=== PATIENT | female | born 1955 | race African-American/Black ===

== ENCOUNTER 2019-12-09 13:38 | Outpatient (CLI) | payer MEDICARE, SELFPAY ==
--- NOTE | 2019-12-15 12:08 | WPDHOLTEREM ---
Holter/Event Monitor Holter/Event Monitor Date of procedure: 12/09/19 Procedure Type: 48 hour holter monitor Indications: Palpitations Conclusion: 1. 48 hour holter monitor on 12/09/19. 2. Predominant rhythm is sinus rhythm. HR range 63-93 bpm; average HR 84 bpm. 3. There are 57 premature supraventricular complexes. There are 3 episodes of atrial tachycardia, fastest at 152 bpm and longest lasting 29 beats. 4. There are 2 premature ventricular complexes. No ventricular tachycardia. 5. No sinoatrial or atrioventricular blocks. No significant pauses greater than 2 seconds. 6. No symptoms available for correlation.
== END 2019-12-09 13:39 | disposition home or self-care (01) ==
PROVIDERS: PCP Family Medicine; Visit Provider Internal Medicine Cardiovascular Disease
DX: R00.2 Palpitations (principal)
CPT/HCPCS: 93225; 93226

== ENCOUNTER 2020-03-17 09:46 | Outpatient (CLI) | payer MEDICARE, SELFPAY ==
--- NOTE | ~2020-03-17 | MM_ITS ---
EXAMINATION: MM screening crispin BI w allan HISTORY: Screening mammogram TECHNIQUE: Craniocaudal and mediolateral oblique 3-D tomosynthesis images were obtained and synthetic 2-D images were generated. CAD analysis was submitted and interpreted. COMPARISON: 03/04/2019, 02/28/2018 bilateral digital screening mammogram examinations BREAST PARENCHYMAL COMPOSITION: There are scattered areas of fibroglandular density...... FINDINGS: There is no evidence of suspicious mass, calcification, or architectural distortion to sugg est malignancy in either breast. There has been no suspicious interval change. IMPRESSION: 1. No mammographic evidence of malignancy. 2. Recommend routine screening mammography in one year. BI-RADS Category 1: Negative Reviewed, dictated and finalized at location A.
== END 2020-03-17 09:47 | disposition home or self-care (01) ==
LOC: ANHIMG 09:48
PROVIDERS: PCP Family Medicine; Visit Provider Family Medicine
DX: Z12.31 Encounter for screening mammogram for malignant neoplasm of breast (principal)
CPT/HCPCS: 77063; 77067

== ENCOUNTER 2020-05-26 09:42 | Outpatient (CLI) | payer MEDICARE, SELFPAY ==
--- NOTE | ~2020-05-26 | US_ITS ---
EXAMINATION: US carotid duplex BI DATE: 05/26/2020 10:23 INDICATION: Memory impairment. Cerebral atherosclerosis. TECHNIQUE: Grayscale, color Doppler, and pulsed Doppler images of the cervical carotid arteries were obtained. The degree of vessel stenosis is placed in one of the following categories: normal, <50%, 5 0-69%, >=70% but less than near-occlusion, near-occlusion, or total occlusion. Note that percent sten osis relative to normal distal artery lumen diameter is indirectly measured from velocity measurement s as described by Raudel, et al. Radiology 2003; 229:340-346. COMPARISON: None. FINDINGS: RIGHT: The right common carotid artery (CCA) peak systolic velocity (PSV) is 69 cm/s. The right internal car otid artery (ICA) PSV is 41 cm/s. The right ICA end-diastolic velocity (EDV) is 14 cm/s. The right IC A/CCA PSV ratio is 0.6. Grayscale and color Doppler images of the straight no evident stenosis or smita que in the ICA. The external carotid artery (ECA) PSV is 38 cm/s. There is antegrade flow in the righ t vertebral artery. LEFT: The left CCA PSV is 62 cm/s. The left ICA PSV is 53 cm/s. The left ICA EDV is 25 cm/s. The left ICA/C CA PSV ratio is 0.9. Grayscale and color Doppler images and straight no evident stenosis or plaque in the ICA. The ECA PSV is 28 cm/s. There is antegrade flow in the left vertebral artery. IMPRESSION: 1. No evident plaque or stenosis in the right internal carotid artery. 2. No evident plaque or stenosis in the left internal carotid artery. Reviewed, dictated and finalized at location A.
== END 2020-05-26 09:43 | disposition home or self-care (01) ==
LOC: ANHIMG 09:47
PROVIDERS: PCP Family Medicine; Visit Provider Nurse Practitioner Family
DX: R09.89 Other specified symptoms and signs involving the circulatory and respiratory systems (principal)
CPT/HCPCS: 93880

== ENCOUNTER 2020-10-21 12:41 | Outpatient (CLI) | payer MEDICARE, SELFPAY ==
--- NOTE | ~2020-10-21 | DEXA_ITS ---
Bone Density Report Name: Leilani Low V Age: 65 Sex: Female Ethnicity: White Date of : 1955 Indication: osteopenia; height loss; prior fracture; hysterectomy; Referring Provider: Juanis Robin Study: Bone densitometry was performed. Exam Date: October 21, 2020 Accession number: [id number] Bone Density: Region BMD T-score Z-score Classification AP Spine (L3, L4) 1.131 0.3 2.3 Normal Femoral Neck (Left) 0.649 -1.8 -0.2 Osteopenia Total Hip (Left) 0.729 -1.7 -0.4 Osteopenia World Health Organization criteria for BMD impression classify patients as: Normal (T-score at or above -1.0), Osteopenia (T-score between -1.0 and -2.5), or Osteoporosis (T-score at or below -2.5). 10-year Fracture Risk: FRAX not reported because: Prior hip or vertebral fracture Previous Exams: Region Exam Age BMD T-score BMD Change BMD Change Date g/cm2 vs Baseline vs Previous AP Spine(L3, L4) 10/21/2020 65 1.131 0.3 -0.014(-1.2%) -0.014(-1.2%) 10/18/2017 62 1.145 0.4 Total Hip(Left) 10/21/2020 65 0.729 -1.7 -0.047(-6.1%)* -0.047(-6.1%)* 10/18/2017 62 0.776 -1.4 *Denotes significance at 95% confidence level, LSC for AP Spine = 0.022 g/cm2, LSC for Total Hip = 0.027 g/cm2 Clinical Information Provided by Patient: Have had a previous hip or vertebral fracture Has had a low trauma fracture Has used the following medications: Vitamin D, Calcium Has the following medical conditions: Hysterectomy Patient maximum height was 66 Menopause Age: 38 Onset of menses at age 10 Number of children 2 Impression: The patient has low bone mass, based on the Left Femoral Neck T-score. The patient has risk factors, including: previous fracture. The BMD for the Total Hip(Left) decreased, changing by -6.1% since the last DXA exam. Discussion: INCREASED RISK OF FRACTURE DUE TO HISTORY OF FRACTURE. The patient's previous fracture puts the patient at high risk of a future fracture. In untreated patients, the risk of osteoporotic fracture increases approximately two-fold for each 1.0 SD decrease in T-score. Low bone density is not the only risk factor for fracture; also consider factors such as patient's age, frailty or poor health, risk of falling, risk of injury, previous osteoporotic fracture, family history of osteoporosis, cigarette smoking, low body weight, etc. Not everyone with a low trauma fracture has osteoporosis; osteomalacia and other metabolic bone disorders should also be considered. Patients who have osteoporosis should be evaluated for specific
== END 2020-10-21 12:42 | disposition home or self-care (01) ==
LOC: ANHIMG 12:44
PROVIDERS: PCP Family Medicine; Visit Provider Nurse Practitioner
DX: Z78.0 Asymptomatic menopausal state (principal); M85.852 Other specified disorders of bone density and structure, left thigh
CPT/HCPCS: 77080

== ENCOUNTER 2020-12-13 09:16 | Outpatient (CLI) | payer MEDICARE, SELFPAY | END 2020-12-13 09:17 | disposition home or self-care (01) | LOC: ANHCOVIDVC 09:16 | PROVIDERS: PCP Family Medicine; Visit Provider Family Medicine | DX: Z23 Encounter for immunization (principal) | CPT/HCPCS: 0001A; 91300 ==

== ENCOUNTER 2020-12-21 16:46 | Outpatient (CLI) | payer MEDICARE, SELFPAY ==
--- NOTE | ~2020-12-21 | US_ITS ---
EXAMINATION: US venous doppler [facility] DATE: 12/21/2020 17:21 INDICATION: Left arm swelling TECHNIQUE: Hinton scale images with and without compression and Doppler images of the left upper extrem ity veins were obtained. COMPARISON: None. FINDINGS: The left internal jugular vein, subclavian vein, axillary vein, brachial veins, basilic vein, cephali c vein, radial vein, and ulnar vein are patent.] IMPRESSION: 1. Patent left upper extremity veins. No evidence of deep venous thrombosis. Reviewed, dictated and finalized at location A. CHER
== END 2020-12-21 16:47 | disposition home or self-care (01) ==
PROVIDERS: PCP Nurse Practitioner; Visit Provider Nurse Practitioner
DX: M79.89 Other specified soft tissue disorders (principal)
CPT/HCPCS: 93971

== ENCOUNTER 2021-01-03 09:11 | Outpatient (CLI) | payer MEDICARE, SELFPAY | END 2021-01-03 09:12 | disposition home or self-care (01) | LOC: ANHCOVIDVC 09:11 | PROVIDERS: PCP Family Medicine | DX: Z23 Encounter for immunization (principal) | CPT/HCPCS: 0002A; 91300 ==

== ENCOUNTER 2021-03-20 08:20 | Outpatient (CLI) | payer MEDICARE, SELFPAY ==
--- NOTE | ~2021-03-20 | MM_ITS ---
EXAMINATION: MM screening crispin BI w allan HISTORY: Screening mammogram TECHNIQUE: Craniocaudal and mediolateral oblique 3-D tomosynthesis images were obtained and synthetic 2-D images were generated. CAD analysis was submitted and interpreted. COMPARISON: 03/17/2020, 03/04/2019, 02/28/2018 bilateral digital screening mammogram examinations BREAST PARENCHYMAL COMPOSITION: There are scattered areas of fibroglandular density. FINDINGS: There is no evidence of suspicious mass, calcification, or architectural distortion to sugg est malignancy in either breast. There has been no suspicious interval change. IMPRESSION: 1. No mammographic evidence of malignancy. 2. Recommend routine screening mammography in one year. BI-RADS Category 1: Negative Reviewed, dictated and finalized at location A.
== END 2021-03-20 08:21 | disposition home or self-care (01) ==
LOC: ANHIMG 08:27
PROVIDERS: PCP Family Medicine; Visit Provider Family Medicine
DX: Z12.31 Encounter for screening mammogram for malignant neoplasm of breast (principal)
CPT/HCPCS: 77063; 77067

== ENCOUNTER 2022-01-10 14:12 | Outpatient (CLI) | payer MEDICARE, SELFPAY ==
--- NOTE | ~2022-01-10 | XR_ITS ---
XR knee RT min 4V DATE: 01/10/2022 14:49 INDICATION: Pain and swelling of right knee. Knee replacement 5 years ago. TECHNIQUE: [place] and standing AP, PA and lateral views COMPARISON: 07/27/2017 right knee FINDINGS: There is organized callus formation consistent with healed fracture of the distal femoral s haft. An intramedullary alyce extends to the fused distal femoral growth plate. Therefore transverse la g screws in the distal femoral metaphyseal area. Status post right knee arthroplasty without patellar resurfacing. Osteopenia. No recent fracture, dislocation, periosteal reaction or bone destruction. IMPRESSION: Status post ORIF distal femoral shaft fracture by intramedullary alyce and transverse dista l femoral screws Status post right knee arthroplasty without patellar resurfacing Osteopenia No recent fracture or dislocation Reviewed, dictated and finalized at location A. IMPRESSION: Status post ORIF distal femoral shaft fracture by intramedullary ro d and transverse distal femoral screws Status post right knee arthroplasty without patellar resurfacing Osteopenia No recent fracture or dislocation
== END 2022-01-10 14:13 | disposition home or self-care (01) ==
LOC: ANHIMG 14:18
PROVIDERS: PCP Family Medicine; Visit Provider Nurse Practitioner
DX: M25.561 Pain in right knee (principal); M85.861 Other specified disorders of bone density and structure, right lower leg
CPT/HCPCS: 73564

== ENCOUNTER 2022-01-30 13:22 | Outpatient (CLI) | payer MEDICARE, SELFPAY ==
--- NOTE | ~2022-01-30 | US_ITS ---
EXAMINATION: US thyroid DATE: 01/30/2022 14:08 INDICATION: Nontoxic single thyroid nodule. TECHNIQUE: Multiple ultrasound images of the thyroid were obtained. COMPARISON: Thyroid ultrasound 09/08/2018 FINDINGS: The right thyroid lobe measures 4.7 x 2.4 x 1.5 cm. The left thyroid lobe measures 4.9 x 1.9 x 1.8 c m. In the right thyroid lobe, there is a 4 mm nodule. IMPRESSION: 1. Small thyroid nodule, likely not clinically significant. No follow-up is needed. Reviewed, dictated and finalized at location B. IMPRESSION: 1. Small thyroid nodule, likely not clinically significant. No follow-up is nee ded.
== END 2022-01-30 13:23 | disposition home or self-care (01) ==
PROVIDERS: PCP Family Medicine; Visit Provider Nurse Practitioner
DX: E04.1 Nontoxic single thyroid nodule (principal)
CPT/HCPCS: 76536

== ENCOUNTER 2022-12-31 01:50 | Day surgery (SDC) | payer MEDICARE, SELFPAY ==
[2022-12-19 12:43] VITALS: BMI 26.3
[2022-12-31 09:50] VITALS: BP 133/93; PULSE 82; RESP 20; TEMP 35.7; O2SAT 99
[2022-12-31] MEDS: LACTATED RINGERS 1,000 ML 150 ML IV CONT (10:02)
--- NOTE | 2022-12-31 10:08 | WPDANESEPPF ---
Anes - Initial Pre Proc Eval Procedure: Operation Date: 12/31/22 11:00 Proposed Procedures p Screening Colonoscopy - Sihraz Farrar MD Date/Time: 12/31/22 10:08 Surgeon: Shiraz Farrar MD Pre Op Diagnosis: neoplasm screening Patient Data Age: 67 Gender: F Height: 1.68 m Weight: 71.1 kg Last Vital Signs Temp 96.2 F L 12/31/22 09:50 Pulse 82 12/31/22 09:50 Resp 20 12/31/22 09:50 BP 133/93 H 12/31/22 09:50 Pulse Ox 99 12/31/22 09:50 O2 Del Method Room Air 12/31/22 09:50 Allergies Allergy/AdvReac Type Severity Reaction Status Date / Time amitriptyline Allergy Mild Hallucinati Verified 12/31/22 09:49 ons Penicillins Allergy Mild Itching Verified 12/31/22 09:49 Home Medications Medication Instructions Recorded Confirmed Type cholecalciferol (vitamin D3) 50 50 mcg PO DAILY 01/15/20 12/21/22 History mcg (2,000 unit) capsule omega 2-hho-arr-fish oil 1,000 mg 1 cap PO DAILY 01/15/20 12/21/22 History (120 mg-180 mg) capsule (Fish Oil) ferrous fumarate 325 mg (106 mg 325 mg PO EVERY OTHER DAY 03/22/21 12/21/22 History iron) tablet acetaminophen 500 mg tablet 500 mg PO Q6H PRN Pain 02/07/22 12/21/22 History (Tylenol Extra Strength) hydroxyurea 500 mg capsule 500 mg PO BID 02/07/22 12/21/22 History tramadol 50 mg tablet 50 mg PO Q6H PRN Pain 08/01/22 12/21/22 History albuterol sulfate 90 mcg/actuation 1 inh inhalation Q4H PRN shortness 09/21/22 12/21/22 Rx aerosol inhaler of breath or wheezing #6.7 grams fluticasone propionate 50 1 spray intranasal DAILY 09/21/22 12/21/22 History mcg/actuation nasal spray,suspension fluoxetine 20 mg capsule 20 mg PO DAILY #90 caps 12/11/22 12/21/22 Rx zolpidem 10 mg tablet 10 mg PO QHS #30 tabs 12/17/22 12/21/22 Rx gabapentin 600 mg tablet 600 mg PO TID 12/19/22 12/21/22 History metoprolol succinate 25 mg 25 mg PO DAILY 12/19/22 12/31/22 History tablet,extended release 24 hr pravastatin 20 mg tablet 20 mg PO DAILY 12/19/22 12/21/22 History sulfamethoxazole 800 1 tablet PO Q12H #14 tabs 12/24/22 Rx mg-trimethoprim 160 mg tablet (Bactrim DS) Patient hx anesthesia problems: none Family hx anesthesia problems: none Results Review: All pre-operative results and documents have been reviewed as part of the pre-operative evaluation. [facility] Past Medical History Medical History Anxiety disorder, unspecified Carotid bruit Chronic obstructive pulmonary disease Cyst of right ovary (~02/2020) Gastric ulcer GI bleed (~02/2020) Hypertension Neuropathy CHATA (obstructive sleep apnea) PAT (paroxysmal atrial tachycardia) Primary osteoarthritis of right knee Recurrent major depression in remission Thrombocytosis (~02/2020) Tobacco abuse Vegetarian diet Surgical History Surgical History H/O tubal ligation History of right knee surgery retrograde femoral nail for supracondylar femur fracture History of total right knee replacement Family History Family History Father Carcinoma of colon Diabetes mellitus Hypertension Malignant neoplasm of prostate Family history of alcohol abuse Depression Heart disease Mother Hypertension Family history of chronic obstructive pulmonary disease Family history of congestive heart failure Carcinoma of colon Depression Other Family history of arthritis Family history of malignant neoplasm Social History Social History Smoking status: Former smoker Tobacco type: cigarettes Smoking end date: 10/14/16 Alcohol intake: current Alcohol use details: 1 beer occasionally Substance use type: does not use Lack of Transportation: No Lack of Food: Sometimes True Current Housing: I Have Housing Concerned About Future Housing: No Difficulty Paying for Meds: No Currently
--- NOTE | 2022-12-31 10:21 | PM.HPGS ---
History of Present Illness History of Present Illness Consent: Risks, benefits, and alternatives have been discussed and questions answered. Patient agrees to proceed with procedure. Chief complaint: neoplasm screening Narrative: Leilani Low is a 67 year old female with last colonoscopy 2016, father had CRC Review of Systems Constitutional: Constitutional: Denies headache(s) and Denies weakness Eyes: Eyes: Denies blurry vision ENT: Reports Normal hearing present, Denies headache(s) and Denies neck pain Cardiovascular: Cardiovascular: Denies chest pain and Denies dyspnea Respiratory: Respiratory: Denies dyspnea Gastrointestinal: Gastrointestinal: Reports no additional gastrointestinal complaints Genitourinary: Genitourinary: Denies dysuria Musculoskeletal: Musculoskeletal: Denies neck pain Integumentary/Breasts: Skin/Breast: Denies dry skin Neurologic: Reports Normal hearing present, Denies headache(s) and Denies weakness Psychiatric: Psychiatric: Denies anxiety Endocrine: Endocrine: Denies change in body appearance Hematologic/Lymphatic: Hematologic/Lymphatic: Denies easy bleeding Allergic/Immunologic: Allergic/Immunologic: Denies urticaria PMFSH Past Medical History Medical History Anxiety disorder, unspecified Carotid bruit Chronic obstructive pulmonary disease Cyst of right ovary (~02/2020) Family history of colon cancer in father Gastric ulcer GI bleed (~02/2020) Hypertension Neuropathy CHATA (obstructive sleep apnea) PAT (paroxysmal atrial tachycardia) Primary osteoarthritis of right knee Recurrent major depression in remission Thrombocytosis (~02/2020) Tobacco abuse Vegetarian diet Surgical History Surgical History H/O tubal ligation History of right knee surgery retrograde femoral nail for supracondylar femur fracture History of total right knee replacement Family History Family History Father Carcinoma of colon Diabetes mellitus Hypertension Malignant neoplasm of prostate Family history of alcohol abuse Depression Heart disease Mother Hypertension Family history of chronic obstructive pulmonary disease Family history of congestive heart failure Carcinoma of colon Depression Other Family history of arthritis Family history of malignant neoplasm Social History Social History Smoking status: Former smoker Tobacco type: cigarettes Smoking end date: 10/14/16 Alcohol intake: current Alcohol use details: 1 beer occasionally Substance use type: does not use Lack of Transportation: No Lack of Food: Sometimes True Current Housing: I Have Housing Concerned About Future Housing: No Difficulty Paying for Meds: No Currently Unemployed: No Education: High School Diploma/GED Difficulty w/ Childcare or Family Care: No Living arrangements: alone Occupation/Education: other Gender identity (if verbalized by the patient): Female Spiritual care concerns: No Meds Home Medications and Allergies Home Medications Medication Instructions Recorded Confirmed Type cholecalciferol (vitamin D3) 50 50 mcg PO DAILY 01/15/20 12/21/22 History mcg (2,000 unit) capsule omega 1-uqq-pek-fish oil 1,000 mg 1 cap PO DAILY 01/15/20 12/21/22 History (120 mg-180 mg) capsule (Fish Oil) ferrous fumarate 325 mg (106 mg 325 mg PO EVERY OTHER DAY 03/22/21 12/21/22 History iron) tablet acetaminophen 500 mg tablet 500 mg PO Q6H PRN Pain 02/07/22 12/21/22 History (Tylenol Extra Strength) hydroxyurea 500 mg capsule 500 mg PO BID 02/07/22 12/21/22 History tramadol 50 mg tablet 50 mg PO Q6H PRN Pain 08/01/22 12/21/22 History albuterol sulfate 90 mcg/actuation 1 inh inhalation Q4H PRN shortness 09/21/22 12/21/22 Rx aerosol inhaler of breath or wheezing #6.7 grams fluticasone propion
[2022-12-31 10:41] VITALS: BP 100/72; PULSE 70; RESP 18; O2SAT 99
[2022-12-31 10:51] VITALS: BP 123/75; PULSE 74; RESP 20; O2SAT 100
[2022-12-31 11:01] VITALS: BP 134/85; PULSE 70; RESP 20; O2SAT 99
== END 2022-12-31 11:19 | disposition home or self-care (01) ==
PROVIDERS: PCP Family Medicine; Visit Provider Internal Medicine Gastroenterology
PROC: 0DJD8ZZ Inspection of Lower Intestinal Tract, Via Natural or Artificial Opening Endoscopic (ICD-10-PCS; CPT 45378; principal; 2022-12-31 11:00)
DX: Z12.11 Encounter for screening for malignant neoplasm of colon (principal); D12.0 Benign neoplasm of cecum; K64.8 Other hemorrhoids; Z80.0 Family history of malignant neoplasm of digestive organs; I10 Essential (primary) hypertension; G62.9 Polyneuropathy, unspecified; F33.40 Major depressive disorder, recurrent, in remission, unspecified; J44.9 Chronic obstructive pulmonary disease, unspecified; F41.9 Anxiety disorder, unspecified; I47.1 Supraventricular tachycardia; G47.33 Obstructive sleep apnea (adult) (pediatric); Z87.891 Personal history of nicotine dependence; Z79.51 Long term (current) use of inhaled steroids
CPT/HCPCS: 45380; 88305; J2704; J7120

== ENCOUNTER 2023-02-12 08:39 | Outpatient (CLI) | payer MEDICARE, SELFPAY ==
--- NOTE | ~2023-02-12 | CT_ITS ---
CT Scan of the Chest without Contrast: Clinical Indication: Lung cancer screening, smoking history Technique: Contiguous sections were acquired throughout the chest without intravenous contrast. Dose reduction technique was used on this scan by utilizing automated exposure control and iterative recon struction technique. The dose-length product (DLP) was 85.50 mGy-cm. COMPARISON: 10/30/2017 Findings: There is no evidence of any significant mediastinal, hilar or axillary lymphadenopathy. The mediastin al soft tissues appear normal. There is no evidence of pleural or pericardial effusion. Stable 2 mm left lower lobe pulmonary nodule. No other pulmonary nodule identified. Images through the upper abdomen reveal no abnormalities. Impression: Lung RADS 2: Benign appearance. 12 month follow-up screening CT advised. Reviewed, dictated and finalized at location . Impression: Lung RADS 2: Benign appearance. 12 month follow-up screening CT advised.
== END 2023-02-12 08:40 | disposition home or self-care (01) ==
PROVIDERS: PCP Family Medicine; Visit Provider Nurse Practitioner
DX: Z12.2 Encounter for screening for malignant neoplasm of respiratory organs (principal); Z87.891 Personal history of nicotine dependence
CPT/HCPCS: 71271

== ENCOUNTER 2023-04-12 09:25 | Outpatient (CLI) | payer MEDICARE, SELFPAY ==
--- NOTE | ~2023-04-12 | DEXA_ITS ---
Bone Density Report Name: HODAN FRY V Age: 67 Sex: Female Ethnicity: White Date of : 1955 Indication: osteopenia; height loss; postmenopausal Referring Provider: MATHEUS SHIELDS Study: Bone densitometry was performed. Exam Date: April 12, 2023 Accession number: [id number] Bone Density: Region BMD T-score Z-score Classification AP Spine(L1-L4) 1.110 0.6 2.7 Normal Femoral Neck (Left) 0.693 -1.4 0.4 Osteopenia Total Hip (Left) 0.722 -1.8 -0.3 Osteopenia Femoral Neck (Right) 0.685 -1.5 0.3 Osteopenia Total Hip (Right) 1.208 2.2 3.7 Normal Total Hip Mean 0.965 0.2 1.7 Normal World Health Organization criteria for BMD impression classify patients as: Normal (T-score at or above -1.0), Osteopenia (T-score between -1.0 and -2.5), or Osteoporosis (T-score at or below -2.5). 10-year Fracture Risk(1): Major Osteoporotic Fracture 9.6% Hip Fracture 1.3% Reported Risk Factors: [place] (), Neck BMD=0.693, BMI=27.3 (1) FRAX(R) Version 3.08. Fracture probability calculated for an untreated patient. Fracture probability may be lower if the patient has received treatment. Previous Exams: Region Exam Age BMD T-score BMD Change BMD Change Date g/cm2 vs Baseline vs Previous AP Spine (L1-L4) 04/12/2023 67 1.110 0.6 0.020 (1.8%) 0.020 (1.8%) 10/18/2017 62 1.090 0.4 Total Hip(Left) 04/12/2023 67 0.722 -1.8 -0.055 (-7.1%) -0.007 (-1.0%) 10/21/2020 65 0.729 -1.7 -0.047 (-6.1%) -0.047 (-6.1%) 10/18/2017 62 0.776 -1.4 *Denotes significance at 95% confidence level, LSC for AP Spine = 0.022 g/cm2, LSC for Total Hip = 0.027 g/cm2 Clinical Information Provided by Patient: Has used the following medications: Vitamin D, Calcium Patient maximum height was 66 Menopause Age: 38 Onset of menses at age 11 Number of children 2 Impression: The patient has low bone mass, based on the Left Total Hip T-score. The patient has an estimated ten-year risk of hip fracture of 1.3% and an estimated ten-year risk of major fracture of 9.6%, based on the WHO FRAX algorithm. No significant bone loss was observed. Discussion: BONE DENSITY IS LOW AT ONE OR MORE SKELETAL SITES. This patient's lowest T-score is low at one or more skeletal sites. It meets the World Health Organization's (WHO) criteria for ?low bone mass? (T-score between -1.0 and -2.5). The patient's 10-year risk of fracture as calculated by FRAX is less than the threshold where pharmacologica
--- NOTE | ~2023-04-12 | MM_ITS ---
EXAMINATION: MM screening crispin BI w allan HISTORY: Screening mammogram TECHNIQUE: Craniocaudal and mediolateral oblique 3-D tomosynthesis images were obtained and synthetic 2-D images were generated. CAD analysis was submitted and interpreted. COMPARISON: 03/20/2021, 03/2020, 03/04/2019 bilateral screening mammogram examinations BREAST PARENCHYMAL COMPOSITION: There are scattered areas of fibroglandular density. FINDINGS: There is no evidence of suspicious mass, calcification, or architectural distortion to sugg est malignancy in either breast. There has been no suspicious interval change. IMPRESSION: 1. No mammographic evidence of malignancy. 2. Recommend routine screening mammography in one year. BI-RADS Category 1: Negative Reviewed, dictated and finalized at location A.
== END 2023-04-12 09:26 | disposition home or self-care (01) ==
LOC: ANHIMG 09:27
PROVIDERS: PCP Family Medicine; Visit Provider Nurse Practitioner
DX: Z12.31 Encounter for screening mammogram for malignant neoplasm of breast (principal); M85.9 Disorder of bone density and structure, unspecified; Z78.0 Asymptomatic menopausal state
CPT/HCPCS: 77063; 77067; 77080

== ENCOUNTER 2023-05-16 08:29 | Outpatient (CLI) | payer MEDICARE, SELFPAY ==
--- NOTE | 2023-05-23 15:14 | WPDSLEEPSTUD ---
Sleep Study Date of Study: 05/16/23 Ordering Provider: Guera Negrete APRN Interpreting Physician: Silvia Obregon MD Sleep Study Type: Polysomnogram Height: 1.68 m Weight: 72.575 kg Body Mass Index: 25.8 Neck Circumference (inches): 14.5 [place]: 8 Reason for Sleep Study recent episodes of sleep walking and calling people in her sleep obstructive sleep apnea is listed as a prior diagnosis * 02/11/2018, HST; AHI 15.9, minimum saturation 40%, 221 minutes spent below 88% * 04/04/2018 CPAP titration; optimal pressure CPAP 7 cm with borderline hypoxemia, average sat was 90% Sleep History Leilani Low is a 67-year-old female with complaints of sleep walking. She describes episodes of walking to her neighbor's house and knocking on the door as well as calling people on the phone, completely unaware while asleep. only when people call her and ask if she is okay does she realized that she has made these phone calls at night. She sees care to go to sleep due to the events. She is not sure how it started or why. Her med list does not show Ambien which has been known to cause these types of behavior. She has anxiety, depression, COPD, CAD as medical diagnoses. she has obstructive sleep apnea listed as prior diagnosis, this was from 2018. Does not appear that she has been treated for it. She does not awaken from sleep feeling short of breath or awaken at night with heartburn, belching or coughing. She does not snore. Other people do not tell her that she snores. She occasionally has difficulty sleeping with a cold. She does not wake up gasping for breath at night. She does not have breathing problems at night observed by others. She always sweats excessively at night. She never notices her heart pounding or beating irregularly at night. She occasionally falls asleep during the day but never falls asleep involuntarily or while driving. She does not have loss of muscle tone with strong emotion. She does not have daytime difficulties due to excessive sleepiness. She never feels paralyzed on waking or falling asleep. She occasionally has vivid dreamlike scenes upon waking or falling asleep. She always feels afraid to go to sleep. She frequently has nightmares. She does not remember her dreams. She occasionally has racing thoughts. She constantly feels sad, depressed and anxious. She always has muscular tension and notices parts of her body jerking. She never kicks at night. She always has crawling and aching feelings in her legs and leg pain at night. She does not have morning jaw pain. She does not grind her teeth during sleep. She occasionally is bothered by pain during the day, occasionally awakened by pain at night. She frequently wakes up feeling stiff in the morning. She occasionally wakes up with sore achy muscles and pain in the neck and spine. She has problems with insomnia, concentration difficulties and memory problems. She has fatigue. She has lost weight over the last year. Normal bedtime is 10:00 p.m. falling asleep within 1-2 hours. She wakes between 2 and 3 times at night to take a drink of water. She is able to return to sleep within 1/2 hour. Her normal wake time is 6:00 a.m.. She keeps the same schedule on weekends. She estimates getting 6-7 hours of sleep at night. She takes naps in the afternoon or evening. She does not feel refreshed after a 10 or 15 minute nap. She is drowsy for an hour after waking. She feels better in the morning compared to other times of day. Habits: Quit tobacco 2 years ago. Caffeine 1 cup of coffee a day. No alcohol or recreational substances. [facility] Past Medical History Medical History Anxiety Anxiety disorder, unspecified Carotid bruit Chronic obstructive pulmonary disease Cyst of right ovary (~02/2020) Family history of colon cancer in father Gastric ulcer GI bleed (~02/2020) Hypertension Neuropathy CHATA (obstructive sleep apnea) PAT (paroxysmal atrial tach
[2023-05-27 10:59] VITALS: BMI 25.8
== END 2023-05-17 06:59 | disposition home or self-care (01) ==
LOC: ANHCSM 08:40
PROVIDERS: PCP Family Medicine; Visit Provider Nurse Practitioner Family
DX: G47.34 Idiopathic sleep related nonobstructive alveolar hypoventilation (principal); G25.81 Restless legs syndrome; G47.8 Other sleep disorders; F41.9 Anxiety disorder, unspecified; G62.9 Polyneuropathy, unspecified; F51.3 Sleepwalking [somnambulism]
CPT/HCPCS: 95810; 99199

== ENCOUNTER 2023-08-05 08:21 | Outpatient (CLI) | payer MEDICARE, SELFPAY ==
[2023-08-05 19:05] LABS: Basophils Absolute Auto 0.2 K/mm3 (0.0-0.1); Basophils Percent Auto 2.5 % (0.2-1.2); Eosinophils Absolute Auto 0.2 K/mm3 (0-0.3); Eosinophils Percent Auto 2.8 % (0-4.4); Hematocrit 37.2 % (37.0-47.0); Hemoglobin 11.8 g/dL (12.0-15.0); Immature Granulocyte Absolute 0.22 K/mm3 (0.00-0.031); Immature Granulocyte Percent A 3.4 % (0-0.5); Lymphocytes Absolute Auto 2.06 K/mm3 (0.9-3.2); Lymphocytes Percent Auto 32.1 % (18.3-44.2); Mean Corpuscular HGB Conc 31.7 g/dl (32-36); Mean Corpuscular Hemoglobin 37.2 pg (26-34); Mean Corpuscular Volume 117.4 fl (80-100); Monocytes Absolute Auto 0.7 K/mm3 (0.1-0.6); Monocytes Percent Auto 10.9 % (2.6-8.5); Neutrophils Absolute Auto 3.1 K/mm3 (1.3-6.7); Neutrophils Percent Auto 48.3 % (45.5-73.1); Nucleated Red Blood Cells Perc 0.3 % (0.0-0.2); Platelet Count Result 428 k/mm3 (150-375); Red Blood Count 3.17 M/mm3 (4.2-5.4); Red Cell Distribution Width 16.6 % (11.5-14.5); White Blood Count 6.4 K/mm3 (4.5-10.0)
[2023-08-05 20:01] LABS: Platelet Estimate Increased (Adequate); Schistocytes None Seen (NORMAL)
[2023-08-05 20:02] LABS: Anisocytosis 2+ (NORMAL); Macrocytosis 1+ (NORMAL)
[2023-08-05 20:03] LABS: Hypochromasia 1+ (NORMAL)
[2023-08-05 20:36] LABS: Alanine Aminotransferase 23 U/L (6-35); Albumin Level 4.1 g/dL (3.5-5.1); Alkaline Phosphatase 52 U/L (38-126); Anion Gap 3 mmol/L (8-16); Aspartate Amino Transferase 157 U/L (14-36); Bilirubin,Total 0.4 mg/dL (0.2-1.3); Blood Urea Nitrogen 18 mg/dL (7-17); Calcium 8.8 mg/dL (8.4-10.2); Carbon Dioxide 33 mmol/L (22-30); Chloride 103 mmol/L (98-107); Estimated Glomerular Filt Rate > 60; Glucose 53 mg/dL (65-110); Potassium 4.3 mmol/L (3.4-5.0); Sodium 139 mmol/L (137-145)
== END 2023-08-05 08:22 | disposition home or self-care (01) ==
PROVIDERS: PCP Family Medicine; Visit Provider Nurse Practitioner Family
DX: I10 Essential (primary) hypertension (principal); Z13.29 Encounter for screening for other suspected endocrine disorder; Z00.00 Encounter for general adult medical examination without abnormal findings
CPT/HCPCS: 36415; 80053; 84443; 85025

== ENCOUNTER 2023-12-23 09:54 | Outpatient (CLI) | payer MEDICARE, SELFPAY ==
[2023-12-23 10:41] LABS: Basophils Absolute Auto 0.1 K/mm3 (0.0-0.1); Basophils Percent Auto 1.5 % (0.2-1.2); Eosinophils Absolute Auto 0.2 K/mm3 (0-0.3); Eosinophils Percent Auto 2.3 % (0-4.4); Hematocrit 38.6 % (37.0-47.0); Hemoglobin 12.5 g/dL (12.0-15.0); Immature Granulocyte Absolute 0.36 K/mm3 (0.00-0.031); Immature Granulocyte Percent A 4.1 % (0-0.5); Lymphocytes Percent Auto 21.8 % (18.3-44.2); Mean Corpuscular HGB Conc 32.4 g/dl (32-36); Mean Corpuscular Hemoglobin 35.1 pg (26-34); Mean Corpuscular Volume 108.4 fl (80-100); Mean Platelet Volume 10.9 fl (7.4-10.4); Monocytes Absolute Auto 0.7 K/mm3 (0.1-0.6); Monocytes Percent Auto 8.2 % (2.6-8.5); Neutrophils Absolute Auto 5.4 K/mm3 (1.3-6.7); Neutrophils Percent Auto 62.1 % (45.5-73.1); Nucleated Red Blood Cells Perc 0.2 % (0.0-0.2); Platelet Count Result 395 k/mm3 (150-375); Red Blood Count 3.56 M/mm3 (4.2-5.4); Red Cell Distribution Width 21.1 % (11.5-14.5); White Blood Count 8.7 K/mm3 (4.5-10.0)
[2023-12-23 11:52] LABS: Platelet Estimate Adequate (Adequate); Schistocytes Rare (NORMAL)
[2023-12-23 11:53] LABS: Hypochromasia 1+ (NORMAL); Macrocytosis 1+ (NORMAL); Target Cells 1+ (NORMAL)
[2023-12-23 19:06] LABS: Appearance Urine Clear (Clear); Bacteria Urine None Seen /hpf; Bilirubin Urine Negative (Negative); Blood Urine Negative (Negative); Color Urine Yellow (Yellow); Glucose Urine UA Negative (Negative); Ketones Urine Negative (Negative); Leukocyte Esterase Ur Trace LEU/UL (NEGATIVE); Nitrate Urine Negative (Negative); Non Pathogenic Casts 0-2; Protein Urine Negative (Negative); RBC Urine 0-2 /hpf (0-2); Specific Grav Ur 1.019 (1.001-1.035); Squamous Epithelial Cell Urine None seen /hpf (Few); Urobilinogen Urine 0.2 mg/dL (<2.0); WBC Urine 0-5 /hpf (0-3); pH Urine 6.5 (5.0-9.0)
[2023-12-23 19:09] LABS: Add Urine Microscopic? YES
[2023-12-23 20:00] LABS: Alanine Aminotransferase 27 U/L (6-35); Alkaline Phosphatase 59 U/L (38-126); Anion Gap 0 mmol/L (8-16); Aspartate Amino Transferase 203 U/L (14-36); Bilirubin,Total 0.5 mg/dL (0.2-1.3); Blood Urea Nitrogen 21 mg/dL (7-17); Calcium 9.1 mg/dL (8.4-10.2); Carbon Dioxide 34 mmol/L (22-30); Chloride 103 mmol/L (98-107); Estimated Glomerular Filt Rate > 60; Glucose 75 mg/dL (65-110); Potassium 3.9 mmol/L (3.4-5.0); Sodium 137 mmol/L (137-145)
== END 2023-12-23 09:55 | disposition home or self-care (01) ==
PROVIDERS: PCP Family Medicine; Visit Provider Nurse Practitioner Family
DX: D75.839 Thrombocytosis, unspecified (principal); G62.9 Polyneuropathy, unspecified; I10 Essential (primary) hypertension; R74.01 Elevation of levels of liver transaminase levels; E78.5 Hyperlipidemia, unspecified; Z01.818 Encounter for other preprocedural examination
CPT/HCPCS: 36415; 80053; 81001; 85025

== ENCOUNTER 2024-01-07 08:49 | Outpatient (CLI) | payer MEDICARE, SELFPAY | END 2024-01-07 08:50 | disposition home or self-care (01) | LOC: ANHAUDIO 08:50 | PROVIDERS: PCP Family Medicine; Visit Provider Otolaryngology | DX: H93.13 Tinnitus, bilateral (principal); H90.3 Sensorineural hearing loss, bilateral | CPT/HCPCS: 92557; 92567 ==

== ENCOUNTER 2024-01-08 13:01 | Outpatient (CLI) | payer MEDICARE, SELFPAY ==
[2024-01-08 19:47] LABS: Bacteria Urine None Seen /hpf; Non Pathogenic Casts 0-2; Squamous Epithelial Cell Urine None Seen /hpf (Few); WBC Urine >100 /hpf (0-3)
[2024-01-08 19:58] LABS: Appearance Urine Cloudy (Clear); Color Urine Yellow (Yellow); pH Urine 5.5 (5.0-9.0)
[2024-01-08 19:59] LABS: Bilirubin Urine Negative (Negative); Blood Urine 2+ (Negative); Glucose Urine UA Negative (Negative); Ketones Urine Trace mg/dL (Negative); Nitrate Urine Negative (Negative); Protein Urine 2+ mg/dL (Negative); Urobilinogen Urine 0.2 mg/dL (<2.0)
[2024-01-08 20:00] LABS: Add Urine Microscopic? YES; Leukocyte Esterase Ur 2+ LEU/UL (Negative)
== END 2024-01-08 13:02 | disposition home or self-care (01) ==
LOC: ANHGOSHLAB 13:03
PROVIDERS: PCP Family Medicine; Visit Provider Family Medicine
DX: N39.0 Urinary tract infection, site not specified (principal)
CPT/HCPCS: 81001; 87086

== ENCOUNTER 2024-03-25 17:29 | Emergency (ER) | payer MEDICARE, SELFPAY ==
--- NOTE | ~2024-03-25 | XR_ITS ---
XR shoulder LT min 2V Ordering provider: Shanna Bill PA-C History: . pain . Comparison: None. FINDINGS: BONES: No acute fracture or dislocation. JOINT SPACES: The acromioclavicular joint is normal. Osteoarthritic changes of the glenohumeral joint . SOFT TISSUES: Normal. IMPRESSION: No acute osseous abnormality left shoulder. Reviewed, dictated and finalized at location A.
--- NOTE | ~2024-03-25 | CT_ITS ---
CT cervical spine wo con Ordering provider: Shanna Bill PA-C History: . neck pain . Comparison: March 21, 2018 Technique: CT of the cervical spine was performed without contrast. Sagittal and coronal reformatted images were also obtained and reviewed. Radiation reduction technique utilized. FINDINGS: VERTEBRAE: No subluxation or acute fracture. The occipital condyles are intact. DISC SPACES: Narrowing of the disc spaces C3-C4, C4-C5, C5-C6 and C6-C7. Narrowing of the disc C7-T1 and T1-T2 multilevel facet joint disease. Multilevel uncovertebral joint osteoarthritic changes. Narrowing of the right intervertebral foramen at the level of C3-C4. Bilateral narrowing of the level of C4-C5, C5-C6 and C6-C7 PARASPINOUS SOFT TISSUES: Normal. IMPRESSION: No acute osseous abnormality cervical spine. Multilevel degenerative disc disease with multilevel facet joint disease and uncovertebral joint oste oarthritic changes. Reviewed, dictated and finalized at location A. IMPRESSION: No acute osseous abnormality cervical spine. Multilevel degenerative disc disease with multilevel facet joint disease and un covertebral joint osteoarthritic changes.
--- NOTE | ~2024-03-25 | XR_ITS ---
EXAMINATION: XR shoulder RT min 2V DATE: 03/25/2024 19:08 INDICATION: Right shoulder pain TECHNIQUE: AP internally and externally rotated and transscapular Y views of the right shoulder were obtained. COMPARISON: None FINDINGS: Normal alignment. No fracture.Mild right glenohumeral and moderate acromioclavicular osteoarthritis. Soft tissues are unremarkable. This most portion of the right lung are clear. IMPRESSION: Mild right glenohumeral and moderate acromioclavicular osteoarthritis. Reviewed, dictated and finalized at location A.
[2024-03-25 17:32] VITALS: BP 136/98; PULSE 97; RESP 21; TEMP 37.1; O2SAT 100
--- NOTE | 2024-03-25 18:42 | ED.EXTPRO ---
HPI - Extremity Problem General Chief complaint: Extremity Problem,Nontraumatic Stated complaint: bilateral shoudler pain and stiffness Time Seen by Provider: 03/25/24 18:18 History of Present Illness HPI Narrative: 68 y/o F with a PMHx Of COPD, CAD, CHATA, gastric ulcers, neuropathy, depression, arthritis, anxiety insomnia thrombocytosis and chronic pain presents to the emergency department for bilateral shoulder pain and neck pain for 2 days. Patient states 2 days ago she woke up with pain and stiffness in her neck shoulders. No injury or trauma. States this never happened to her before. Denies fever, nausea vomiting, chest pain or shortness of breath. States she took Tylenol oral 11:00 a.m. this morning without improvement. she denies numbness or tingling in her arms or hands and weakness in her hands. Patient saw her PCP on 03/17/2020 for port chart review. She follows with Dr. Ambrosio pain management and is prescribed tramadol 50 mg t.i.d. She is frustrated with me on history taking that I am examining her and asking her questions. She is asking For pain medications. Per chart review, patient had 120 tramadol also filled on 03/04/2024 and 30 Norcos filled on 03/10/2024. Related Data Home Medications Medication Instructions Recorded Confirmed cholecalciferol (vitamin D3) 50 50 mcg PO DAILY 01/15/20 03/17/24 mcg (2,000 unit) capsule omega 0-hwo-acn-fish oil 1,000 mg 1 cap PO DAILY 01/15/20 03/17/24 (120 mg-180 mg) capsule (Fish Oil) acetaminophen 500 mg tablet 500 mg PO Q6H PRN Pain 02/07/22 03/17/24 (Tylenol Extra Strength) hydroxyurea 500 mg capsule 500 mg PO BID 02/07/22 03/17/24 tramadol 50 mg tablet 50 mg PO Q6H PRN Pain 08/01/22 03/17/24 gabapentin 300 mg capsule mg PO DAILY 12/23/23 03/17/24 Allergies Allergy/AdvReac Type Severity Reaction Status Date / Time amitriptyline Allergy Mild Hallucinati Verified 03/25/24 19:16 ons Penicillins Allergy Unknown Hives / Verified 03/25/24 19:16 Red Face,Itching aspirin AdvReac GI bleed Verified 03/25/24 19:16 Review of Systems Review of Systems: CONSTITUTIONAL: Denies fever, chills, or sweats. EYES: Denies visual changes, redness, or discharge. ENT: Denies rhinorrhea, congestion, sore throat, or otalgia. CARDIOVASCULAR: Denies chest pain, palpitations, or edema. RESPIRATORY: Denies cough or dyspnea. GASTROINTESTINAL: Denies abdominal pain, nausea, vomiting, or diarrhea. GENITOURINARY: Denies dysuria or hematuria. SKIN: Denies rash or itching. MUSCULOSKELETAL: See HPI NEUROLOGIC: Denies headache, numbness, or weakness. PSYCHIATRIC: Denies anxiety or depression. [facility] Past Medical History Medical History Anxiety Anxiety disorder, unspecified Carotid bruit Chronic obstructive pulmonary disease Cyst of right ovary (~02/2020) Encounter for preoperative examination for general surgical procedure Epistaxis Family history of colon cancer in father Gastric ulcer GI bleed (~02/2020) Hypertension Neuropathy CHATA (obstructive sleep apnea) PAT (paroxysmal atrial tachycardia) Primary osteoarthritis of right knee Recurrent major depression in remission Sleepwalking Thrombocytosis (~02/2020) Tobacco abuse Vegetarian diet Surgical History Surgical History H/O tubal ligation History of left knee replacement History of right knee surgery retrograde femoral nail for supracondylar femur fracture History of total right knee replacement Family History Family History Father Carcinoma of colon Diabetes mellitus Hypertension Malignant neoplasm of prostate Family history of alcohol abuse Depression Heart disease Mother Hypertension Family history of chronic obstructive pulmonary disease Family history of congestive heart failure Carcinoma of colon Depression Other Family history of arthritis Family history
--- NOTE | 2024-03-25 18:45 | ECG_ITS ---
Test Date: 2024-03-25 20:25:34 Measurements Intervals [place] Rate: 93 P: 26 AK: 146 QRS: 21 QRSD: 80 T: 43 QT: 331 QTc: 414 Interpretive Statements SINUS RHYTHM INCOMPLETE RIGHT BUNDLE BRANCH BLOCK No previous ECG available for comparison Electronically Signed On 03-26-2024 12:40:42 CDT by Jimmy Reece M.D.
[2024-03-25] MEDS: ACETAMINOPHEN 500 MG TABLET 1000 MG PO (19:18)
[2024-03-25] MEDS: CYCLOBENZAPRINE HCL 10 MG TABLET PO (19:19)
[2024-03-25] MEDS: LIDOCAINE 5% PATCH 1 PATCH TRANSDERM (19:36)
[2024-03-25 19:42] LABS: Basophils Absolute Auto 0.2 K/mm3 (0.0-0.1); Basophils Percent Auto 1.9 % (0.2-1.2); Eosinophils Absolute Auto 0.3 K/mm3 (0-0.3); Eosinophils Percent Auto 2.3 % (0-4.4); Hematocrit 42.6 % (37.0-47.0); Hemoglobin 13.8 g/dL (12.0-15.0); Immature Granulocyte Absolute 0.57 K/mm3 (0.00-0.031); Immature Granulocyte Percent A 4.6 % (0-0.5); Lymphocytes Absolute Auto 1.77 K/mm3 (0.9-3.2); Lymphocytes Percent Auto 14.3 % (18.3-44.2); Mean Corpuscular HGB Conc 32.4 g/dl (32-36); Mean Corpuscular Hemoglobin 32.2 pg (26-34); Mean Corpuscular Volume 99.5 fl (80-100); Mean Platelet Volume 10.8 fl (7.4-10.4); Monocytes Absolute Auto 1.2 K/mm3 (0.1-0.6); Monocytes Percent Auto 9.9 % (2.6-8.5); Neutrophils Absolute Auto 8.3 K/mm3 (1.3-6.7); Nucleated Red Blood Cells Perc 0.2 % (0.0-0.2); Platelet Count Result 575 k/mm3 (150-375); Red Blood Count 4.28 M/mm3 (4.2-5.4); Red Cell Distribution Width 21.6 % (11.5-14.5); White Blood Count 12.4 K/mm3 (4.5-10.0)
[2024-03-25 19:57] LABS: Anion Gap 7 mmol/L (4-12); Blood Urea Nitrogen 11 mg/dL (7-17); CRP 1.8 mg/dL (<1.0); Calcium 9.6 mg/dL (8.4-10.2); Carbon Dioxide 31 mmol/L (22-30); Chloride 99 mmol/L (98-107); Estimated CRCL calculation 60 ml/min; Estimated Glomerular Filt Rate > 60; Glucose 94 mg/dL (65-110); Potassium 3.6 mmol/L (3.4-5.0); Sodium 137 mmol/L (137-145)
[2024-03-25 20:05] LABS: Troponin I < 0.012 ng/mL (0.000-0.034)
[2024-03-25 20:16] LABS: Erythrocyte Sedimentation Rate 13 mm/hr (0-20)
[2024-03-25] MEDS: predniSONE 5 MG TABLET PO (21:30)
[2024-03-25] MEDS: predniSONE 10 MG TABLET PO (21:30)
[2024-03-25 21:48] VITALS: BP 142/71; PULSE 78; RESP 17; TEMP 36.7; O2SAT 100
== END 2024-03-25 21:51 | disposition home or self-care (01) ==
PROVIDERS: Emergency Provider Physician Assistant; PCP Family Medicine
DX: M54.2 Cervicalgia (principal); M25.511 Pain in right shoulder; J44.9 Chronic obstructive pulmonary disease, unspecified; Z99.81 Dependence on supplemental oxygen; I10 Essential (primary) hypertension; G58.9 Mononeuropathy, unspecified; G47.33 Obstructive sleep apnea (adult) (pediatric); M17.11 Unilateral primary osteoarthritis, right knee; F41.9 Anxiety disorder, unspecified; F33.40 Major depressive disorder, recurrent, in remission, unspecified; Z96.653 Presence of artificial knee joint, bilateral; Z87.891 Personal history of nicotine dependence; Z79.899 Other long term (current) drug therapy; I45.10 Unspecified right bundle-branch block; M19.011 Primary osteoarthritis, right shoulder; M50.31 Other cervical disc degeneration, high cervical region
CPT/HCPCS: 36415; 72125; 73030; 80048; 84484; 85025; 85652; 86140; 93005; 99284; A9270; J7512

== ENCOUNTER 2024-03-29 10:12 | Emergency (ER) | payer MEDICARE, SELFPAY ==
--- NOTE | ~2024-03-29 | XR_ITS ---
EXAMINATION: XR chest 1V portable DATE: 03/29/2024 11:34 INDICATION: Chest pain and spasms in the upper back TECHNIQUE: frontal view of the chest was obtained. COMPARISON: Chest CT dated 02/12/2023 FINDINGS: Eventration along the right hemidiaphragm. No focal airspace opacities, pulmonary edema, pleural effu unique or pneumothorax. The cardiomediastinal silhouette is normal. Severe thoracic spondylosis. Small focus of dystrophic calcification along the posterior left greater tuberosity consistent with left in fraspinatus and/or teres minor calcific tendinitis. IMPRESSION: 1. No acute cardiopulmonary disease. Reviewed, dictated and finalized at location A.
[2024-03-29 10:50] VITALS: BP 139/95; PULSE 100; RESP 16; TEMP 36.6; O2SAT 100
--- NOTE | 2024-03-29 11:32 | ED.BACK ---
HPI - Back Pain/Injury General Chief Complaint: Back Pain/Injury Stated Complaint: back pain Time Seen by Provider: 03/29/24 10:59 History of Present Illness HPI Narrative: 68-year-old female present to the emergency department for evaluation for chronic back pain. Patient was just recently seen in the emergency department and prescribed medications for pain control. Patient then had follow-up with primary care physician and was prescribed additional medications for pain control. Patient is unsure of what medication she was prescribed. Patient denies any chest pain. Patient denies any falls or injuries. Patient denies any coughs colds or fevers. Related Data Home Medications Medication Instructions Recorded Confirmed cholecalciferol (vitamin D3) 50 50 mcg PO DAILY 01/15/20 03/17/24 mcg (2,000 unit) capsule omega 6-clw-syr-fish oil 1,000 mg 1 cap PO DAILY 01/15/20 03/17/24 (120 mg-180 mg) capsule (Fish Oil) acetaminophen 500 mg tablet 500 mg PO Q6H PRN Pain 02/07/22 03/17/24 (Tylenol Extra Strength) hydroxyurea 500 mg capsule 500 mg PO BID 02/07/22 03/17/24 tramadol 50 mg tablet 50 mg PO Q6H PRN Pain 08/01/22 03/17/24 gabapentin 300 mg capsule mg PO DAILY 12/23/23 03/17/24 Allergies Allergy/AdvReac Type Severity Reaction Status Date / Time amitriptyline Allergy Mild Hallucinati Verified 03/25/24 19:16 ons Penicillins Allergy Unknown Hives / Verified 03/25/24 19:16 Red Face,Itching aspirin AdvReac GI bleed Verified 03/25/24 19:16 Review of Systems Review of Systems: All systems reviewed & are unremarkable except as noted in HPI and below PMFSH Past Medical History Medical History Anxiety Anxiety disorder, unspecified Carotid bruit Chronic obstructive pulmonary disease Cyst of right ovary (~02/2020) Encounter for preoperative examination for general surgical procedure Epistaxis Family history of colon cancer in father Gastric ulcer GI bleed (~02/2020) Hypertension Neuropathy CHATA (obstructive sleep apnea) PAT (paroxysmal atrial tachycardia) Primary osteoarthritis of right knee Recurrent major depression in remission Sleepwalking Thrombocytosis (~02/2020) Tobacco abuse Vegetarian diet Surgical History Surgical History H/O tubal ligation History of left knee replacement History of right knee surgery retrograde femoral nail for supracondylar femur fracture History of total right knee replacement Family History Family History Father Carcinoma of colon Diabetes mellitus Hypertension Malignant neoplasm of prostate Family history of alcohol abuse Depression Heart disease Mother Hypertension Family history of chronic obstructive pulmonary disease Family history of congestive heart failure Carcinoma of colon Depression Other Family history of arthritis Family history of malignant neoplasm Social History Social History Smoking status: Former smoker Tobacco type: cigarettes Smoking end date: 10/14/16 Alcohol intake: current Alcohol use details: 1 beer occasionally Substance use type: does not use Lack of Transportation: No Lack of Food: Sometimes True Current Housing: I Have Housing Concerned About Future Housing: No Difficulty Paying for Meds: No Currently Unemployed: No Education: High School Diploma/GED Difficulty w/ Childcare or Family Care: No Living arrangements: alone Occupation/Education: other Gender identity (if verbalized by the patient): Female Spiritual care concerns: No Exam Narrative: APPEARANCE: Well appearing, no pain, no distress, well-nourished. HEAD: normocephalic, atraumatic. EYES: PERRLA/EOMI, conjunctivae clear. NOSE: Normal no drainage EARS:TMS clear with good light reflex. THROAT: Pharynx clear, no exudate. NECK: Supp
[2024-03-29] MEDS: CYCLOBENZAPRINE HCL 10 MG TABLET PO (11:42)
[2024-03-29] MEDS: HYDROcodone/acetaminophen (*CRX) 5-325 MG TABLET 1 TAB PO (11:42)
== END 2024-03-29 13:15 | disposition home or self-care (01) ==
PROVIDERS: Emergency Provider Emergency Medicine; PCP Family Medicine
DX: M54.9 Dorsalgia, unspecified (principal); G89.29 Other chronic pain; J44.9 Chronic obstructive pulmonary disease, unspecified; I10 Essential (primary) hypertension; G62.9 Polyneuropathy, unspecified; G47.33 Obstructive sleep apnea (adult) (pediatric); M17.11 Unilateral primary osteoarthritis, right knee; F41.9 Anxiety disorder, unspecified; F33.40 Major depressive disorder, recurrent, in remission, unspecified; Z96.653 Presence of artificial knee joint, bilateral; Z87.891 Personal history of nicotine dependence; Z79.899 Other long term (current) drug therapy
CPT/HCPCS: 71045; 99283; A9270

== ENCOUNTER 2024-04-01 13:39 | Emergency (ER) | payer MEDICARE, SELFPAY ==
[2024-04-01] VITALS (17 sets, daily range): BP systolic 112–150; BP diastolic 77–104; PULSE 106–123; RESP 14–26; TEMP 36.5; O2SAT 88–100
[2024-04-01] MEDS: KETOROLAC 30 MG/ML VIAL (*BKC) IV PUSH (15:57)
[2024-04-01] MEDS: diazePAM INJ (*CRX) 10 MG/2 ML SYRINGE 5 MG IV PUSH (15:57)
[2024-04-01] MEDS: SODIUM CHLORIDE 0.9% IV 1,000 ML 999 ML IV CONT (15:59)
--- NOTE | 2024-04-01 16:36 | ED.BACK ---
HPI - Back Pain/Injury General Chief Complaint: Back Pain/Injury Stated Complaint: stiffness and pain across shoulder blades X2 weeks Time Seen by Provider: 04/01/24 15:03 History of Present Illness HPI Narrative: patient is 5-year-old female who presents ER with right-sided back pain. It is in the trapezius musculature around the scapula. Worse with physical movements the shoulder. Recently seen in the ER and has had imaging for neck and shoulder. She is supposed to be referred to chronic pain management. She reports that the anti-inflammatories muscle relaxers she received did not improve her discomfort. She has no fevers or chills or sweats. No chest pain or pain with deep breath. no vomiting. No known trauma. Related Data Home Medications Medication Instructions Recorded Confirmed cholecalciferol (vitamin D3) 50 50 mcg PO DAILY 01/15/20 03/17/24 mcg (2,000 unit) capsule omega 3-zlu-lsp-fish oil 1,000 mg 1 cap PO DAILY 01/15/20 03/17/24 (120 mg-180 mg) capsule (Fish Oil) acetaminophen 500 mg tablet 500 mg PO Q6H PRN Pain 02/07/22 03/17/24 (Tylenol Extra Strength) hydroxyurea 500 mg capsule 500 mg PO BID 02/07/22 03/17/24 tramadol 50 mg tablet 50 mg PO Q6H PRN Pain 08/01/22 03/17/24 gabapentin 300 mg capsule mg PO DAILY 12/23/23 03/17/24 Allergies Allergy/AdvReac Type Severity Reaction Status Date / Time amitriptyline Allergy Mild Hallucinati Verified 04/01/24 13:40 ons Penicillins Allergy Unknown Hives / Verified 04/01/24 13:40 Red Face,Itching aspirin AdvReac GI bleed Verified 04/01/24 13:40 Review of Systems Constitutional: Constitutional: Reports no additional constitutional complaints Cardiovascular: Cardiovascular: Reports no additional cardiovascular complaints Respiratory: Respiratory: Reports no additional respiratory complaints Musculoskeletal: Musculoskeletal: Reports back pain, Denies arthralgias, Denies joint swelling and Reports muscle cramps Neurologic: Reports system reviewed and no additional complaints, except as documented PMFSH Past Medical History Medical History Anxiety Anxiety disorder, unspecified Carotid bruit Chronic obstructive pulmonary disease Cyst of right ovary (~02/2020) Encounter for preoperative examination for general surgical procedure Epistaxis Family history of colon cancer in father Gastric ulcer GI bleed (~02/2020) Hypertension Neuropathy CHATA (obstructive sleep apnea) PAT (paroxysmal atrial tachycardia) Primary osteoarthritis of right knee Recurrent major depression in remission Sleepwalking Thrombocytosis (~02/2020) Tobacco abuse Vegetarian diet Surgical History Surgical History H/O tubal ligation History of left knee replacement History of right knee surgery retrograde femoral nail for supracondylar femur fracture History of total right knee replacement Family History Family History Father Carcinoma of colon Diabetes mellitus Hypertension Malignant neoplasm of prostate Family history of alcohol abuse Depression Heart disease Mother Hypertension Family history of chronic obstructive pulmonary disease Family history of congestive heart failure Carcinoma of colon Depression Other Family history of arthritis Family history of malignant neoplasm Social History Social History Smoking status: Former smoker Tobacco type: cigarettes Smoking end date: 10/14/16 Alcohol intake: current Alcohol use details: 1 beer occasionally Substance use type: does not use Lack of Transportation: No Lack of Food: Sometimes True Current Housing: I Have Housing Concerned About Future Housing: No Difficulty Paying for Meds: No Currently Unemployed: No Education: High School Diploma/GED Difficulty w/ Childcare or Family Care: N
== END 2024-04-01 17:53 | disposition home or self-care (01) ==
PROVIDERS: Emergency Provider Emergency Medicine; PCP Family Medicine
DX: M62.830 Muscle spasm of back (principal); J44.9 Chronic obstructive pulmonary disease, unspecified; I10 Essential (primary) hypertension; G62.9 Polyneuropathy, unspecified; G47.33 Obstructive sleep apnea (adult) (pediatric); M17.11 Unilateral primary osteoarthritis, right knee; Z96.653 Presence of artificial knee joint, bilateral; Z87.891 Personal history of nicotine dependence; F41.9 Anxiety disorder, unspecified; F33.40 Major depressive disorder, recurrent, in remission, unspecified; Z79.899 Other long term (current) drug therapy
CPT/HCPCS: 96361; 96374; 96375; 99284; J1885; J3360; J7030

== ENCOUNTER 2024-04-02 13:21 | Emergency (ER) | payer MEDICARE, SELFPAY ==
--- NOTE | 2024-04-02 14:08 | ED.EXTPRO ---
HPI - Extremity Problem General Chief complaint: Extremity Problem,Nontraumatic <Vandana Julio PA-C - Last Filed: 04/07/24 09:57> Stated complaint: stiffness and pain in R shoulder <Vandana Julio PA-C - Last Filed: 04/07/24 09:57> Time Seen by Provider: 04/02/24 14:08 <Vandana Julio PA-C - Last Filed: 04/07/24 09:57> Focused HPI: This is a 68-year-old female that presents to the emergency department for right shoulder pain. Ongoing over the last week. No recent injuries. Has been evaluated in the ER for this several times. Is taking prescribed medications with little relief. Denies decreased range of motion or numbness. GENERAL: Uncomfortable, well-nourished, and in no acute distress. HEAD: Normocephalic, atraumatic. CHEST: Clear to auscultation. ?No respiratory distress. HEART: Regular rate and rhythm.? NEURO: ?Alert and oriented x3. Patient screened in triage and initial orders placed.? ?Additional care and disposition to be based upon?diagnostic testing and treatment. <Vandana Julio PA-C - Last Filed: 04/07/24 09:57> Source: patient <Irma Corrales MD - Last Filed: 04/03/24 11:49> Mode of arrival: ambulatory <Irma Corrales MD - Last Filed: 04/03/24 11:49> History of Present Illness HPI Narrative: patient presents with complaint of right shoulder and back pain and stiffness particularly at the right shoulder blade along the medial and inferior aspect. She denies any paresthesias. She states it is like a bow and arrow. she has not appreciated that is particularly worse at night. She has been taking extra-strength acetaminophen/Tylenol for this but states she does not take aspirin NSAIDs because of a prior GI bleed. She is in process of trying to be referred to a acid painter. also trialing ice and heating pad. <Irma Corrales MD - Last Filed: 04/03/24 11:49> Related Data Home medications: Home Medications Medication Instructions Recorded Confirmed cholecalciferol (vitamin D3) 50 50 mcg PO DAILY 01/15/20 04/06/24 mcg (2,000 unit) capsule omega 0-pvm-ony-fish oil 1,000 mg 1 cap PO DAILY 01/15/20 04/06/24 (120 mg-180 mg) capsule (Fish Oil) acetaminophen 500 mg tablet 500 mg PO Q6H PRN Pain 02/07/22 04/06/24 (Tylenol Extra Strength) hydroxyurea 500 mg capsule 500 mg PO BID 02/07/22 04/06/24 tramadol 50 mg tablet 50 mg PO Q6H PRN Pain 08/01/22 04/06/24 gabapentin 300 mg capsule mg PO DAILY 12/23/23 04/06/24 <Vandana Julio PA-C - Last Filed: 04/07/24 09:57> Allergies/Adverse reactions: Allergies Allergy/AdvReac Type Severity Reaction Status Date / Time amitriptyline Allergy Mild Hallucinati Verified 04/06/24 10:19 ons Penicillins Allergy Unknown Hives / Verified 04/06/24 10:19 Red Face,Itching aspirin AdvReac GI bleed Verified 04/06/24 10:19 <Vandana Julio PA-C - Last Filed: 04/07/24 09:57> Review of Systems Review of Systems: CONSTITUTIONAL: Denies fever MUSCULOSKELETAL: Reports joint pain, and myalgia. NEUROLOGIC: Denies numbness, or weakness. <Vandana Julio PA-C - Last Filed: 04/07/24 09:57> All systems reviewed & are unremarkable except as noted in HPI and below <Vandana Julio PA-C - Last Filed: 04/07/24 09:57> [facility] Past Medical History Medical History: Medical History Anxiety Anxiety disorder, unspecified Carotid bruit Chronic obstructive pulmonary disease Cyst of right ovary (~02/2020) DDD (degenerative disc disease) Encounter for preoperative examination for general surgical procedure Epistaxis Family history of colon cancer in father Gastric ulcer GI bleed (~02/2020) Hypertension Neuropathy CHATA (obstructive sleep apnea) PAT (paroxysmal atrial tachycardia) Primary osteoarthritis of right knee Recurrent major depression in remission Sleepwalking Thrombocytosis (~02/2020) Tobacco abuse Vegetarian diet <Vandana Julio PA-C - Last Filed:
[2024-04-02 14:13] VITALS: BP 141/92; PULSE 116; RESP 18; TEMP 36.4; O2SAT 96
[2024-04-02] MEDS: methocarbamoL 750 MG TABLET PO (16:50)
== END 2024-04-02 17:19 | disposition home or self-care (01) ==
PROVIDERS: Emergency Provider Student in an Organized Health Care Education/Training Program; PCP Family Medicine
DX: M62.838 Other muscle spasm (principal); J44.9 Chronic obstructive pulmonary disease, unspecified; I10 Essential (primary) hypertension; G62.9 Polyneuropathy, unspecified; G47.33 Obstructive sleep apnea (adult) (pediatric); M17.11 Unilateral primary osteoarthritis, right knee; F41.9 Anxiety disorder, unspecified; F33.40 Major depressive disorder, recurrent, in remission, unspecified; Z96.653 Presence of artificial knee joint, bilateral; Z87.891 Personal history of nicotine dependence; Z79.899 Other long term (current) drug therapy
CPT/HCPCS: 99283; A9270

== ENCOUNTER 2024-04-07 12:32 | Outpatient (CLI) | payer MEDICARE, SELFPAY ==
--- NOTE | ~2024-04-07 | MR_ITS ---
EXAMINATION: MR shoulder RT wo con DATE: 04/07/2024 13:48 INDICATION: Right shoulder pain TECHNIQUE: Magnetic resonance imaging (MRI) of the right shoulder was performed without intravenous c ontrast. Sequences included axial PD-weighted FS FSE, coronal oblique PD-weighted FS FSE, coronal obl ique T2-weighted FS FSE, sagittal PD-weighted FS FSE, and sagittal T1-weighted SE. COMPARISON: None. FINDINGS: Coracoacromial arch: The acromion undersurface is curved in morphology (type II) with small inferiorly directed anterior s ubacromial spur. The coracoacromial ligament is normal. Moderate acromioclavicular osteoarthritis. Rotator cuff: Mild supraspinatus and infraspinatus tendinopathy and moderate subscapularis tendinopathy without dis crete tears. The teres minor tendon is normal. There is mild fatty atrophy of the supraspinatus muscl e belly. Biceps tendon, glenoid labrum and glenohumeral cartilage: Mild tendinopathy without discrete tear at the intra-articular portion of the long head biceps tendon . Degeneration of the superior to posterosuperior glenoid labrum as well as along the inferior and an teroinferior labrum. There is deep chondral ulceration at the posterior, central, superior posterior superior aspects of the glenoid. Subarticular cystlike change at the anterosuperior rim of the glenoi d. Additional partial-thickness cartilage loss along the humeral head with deep chondral ulceration w ithout degenerative subchondral changes along the posterior inferior to posterosuperior aspect of the humeral head. Small marginal osteophytes about the glenoid and inferior aspect of the humeral head. Fluid: Mild synovitis and small amount of fluid in the long head biceps tendon sheath which is disproportion al to the physiologic amount fluid in the glenohumeral joint space consistent with mild bicipital ten osynovitis. No loose osteochondral bodies. Mild increased fluid signal in the subacromial/subdeltoid bursa consistent with mild bursitis. Bones: No fracture or pathologic marrow replacing process. IMPRESSION: 1. Moderate glenohumeral osteoarthritis with moderate and high-grade chondromalacia and degeneration at the superior to posterior superior and anterior to anteroinferior glenoid labrum. 2. Moderate subscapularis and mild supraspinatus and infraspinatus tendinopathy without discrete tear . There is mild fatty atrophy of the supraspinatus muscle belly which could be due to denervation leeann nge, disuse or occult partial-thickness tendon tear. 3. Mild bicipital tenosynovitis with mild tendinopathy without tear of the intra-articular portion of the tendon. 4. Moderate acromioclavicular osteoarthritis with mild underlying subacromial/subdeltoid bursitis. Reviewed, dictated and finalized at location B. IMPRESSION: 1. Moderate glenohumeral osteoarthritis with moderate and high-grade chondromal acia and degeneration at the superior to posterior superior and anterior to ant eroinferior glenoid labrum. 2. Moderate subscapularis and mild supraspinatus and infraspinatus tendinopathy without discrete tear. There is mild fatty atrophy of the supraspinatus muscle belly which could be due to denervation change, disuse or occult partial-thick ness tendon tear. 3. Mild bicipital tenosynovitis with mild tendinopathy without tear of the intr a-articular portion of the tendon. 4. Moderate acromioclavicular osteoarthritis with mild underlying subacromial/s ubdeltoid bursitis.
--- NOTE | ~2024-04-07 | MR_ITS ---
MRI of the cervical spine Clinical History: Neck pain, left arm pain Technique: Axial T2-weighted and gradient images, and sagittal T1-weighted, T2-weighted, and STIR haylee ges were acquired. Findings: No acute fracture or subluxation seen. There is straightening of the normal cervical lordos is. No suspicious bone marrow signal abnormality seen. There is severe degenerative disc narrowing at C3-C4, C4-C5, C5-C6, and C6-C7. At C2-C3, there is no significant disc bulge or herniation. No spinal canal stenosis or cord compress ion. There is bilateral facet arthropathy, left worse than right, without definite neural foraminal n arrowing. At C3-C4, there is mild disc osteophyte complex, without canal stenosis or cord compression. There is bilateral facet arthropathy with bilateral neural foraminal narrowing, right worse than left. At C4-C5, there is advanced facet arthropathy and minimal disc osteophyte complex. There is mild idania l stenosis with minimal flattening the ventral cord. There is severe bilateral neural foraminal narro wing. At C5-C6, there is disc osteophyte complex resulting in mild canal stenosis and minimal flattening of the ventral cord. There is bilateral facet arthropathy with advanced bilateral neural foraminal narr owing. At C6-C7, there is minimal disc osteophyte complex. No spinal canal stenosis or cord compression. The re is bilateral neural foraminal narrowing and bilateral facet arthropathy. No abnormal signal seen in the spinal cord. Paravertebral soft tissues are unremarkable. Impression: Severe degenerative spondylosis, as detailed above. Reviewed, dictated and finalized at [facility] M. Impression: Severe degenerative spondylosis, as detailed above.
== END 2024-04-07 12:33 ==
LOC: GOSHIMG 12:32
PROVIDERS: PCP Family Medicine; Visit Provider Nurse Practitioner Family
DX: M79.602 Pain in left arm (principal); M47.892 Other spondylosis, cervical region; M75.21 Bicipital tendinitis, right shoulder; M19.011 Primary osteoarthritis, right shoulder
CPT/HCPCS: 72141; 73221

== ENCOUNTER 2024-09-25 11:01 | Outpatient (CLI) | payer MEDICARE, SELFPAY ==
--- NOTE | ~2024-09-25 | XR_ITS ---
Left Hand Technique: PA and lateral views were obtained. Clinical History: Pain Findings: No acute fracture or dislocation is seen. Osseous alignment is anatomic. Joint spaces are p reserved. Soft tissues are unremarkable. Impression: Unremarkable left hand. Reviewed, dictated and finalized at location M. WATCHMAN Impression: Unremarkable left hand.
== END 2024-09-25 11:02 | disposition home or self-care (01) ==
LOC: GOSHIMG 11:02
PROVIDERS: PCP Family Medicine; Visit Provider Nurse Practitioner Family
DX: M79.642 Pain in left hand (principal)
CPT/HCPCS: 73120

== ENCOUNTER 2024-09-29 12:39 | Outpatient (CLI) | payer MEDICARE, SELFPAY ==
[2024-09-29 13:57] LABS: Rheumatoid Factor < 12.0 IU/ML (<12)
[2024-10-05 16:28] LABS: Anti Nuclear Antibody Pattern Nuclear, Speckled; Anti Nuclear Antibody Titer 1:40 titer
== END 2024-09-29 12:40 | disposition home or self-care (01) ==
LOC: ANHGOSHLAB 12:42
PROVIDERS: PCP Family Medicine; Visit Provider Nurse Practitioner Family
DX: M79.641 Pain in right hand (principal); M79.642 Pain in left hand; M79.645 Pain in left finger(s)
CPT/HCPCS: 36415; 84550; 86038; 86039; 86430

== ENCOUNTER 2025-03-13 16:25 | Emergency (ER) | payer MEDICARE, SELFPAY ==
--- NOTE | 2025-03-13 16:27 | ED.GENADULT ---
HPI - General Adult General Chief complaint: Dental/Oral Stated complaint: FEELS LIKE JAW IS LOCKING Time Seen by Provider: 03/13/25 16:31 Source: patient, RN notes reviewed and old records reviewed Mode of arrival: ambulatory Limitations: no limitations History of Present Illness HPI narrative: 69-year-old female presents to the [facility] with concerns for the last 3 days that her jaw was locking when she is chewing. Patient does normally wear false teeth. Reports tenderness to the right lower jaw. No erythema, ecchymosis noted. No swelling of the gingiva. Related Data Home Medications ?Medication ?Instructions ?Recorded ?Confirmed ?Last Taken ?Type cholecalciferol (vitamin D3) 50 50 mcg PO DAILY 01/15/20 03/13/25 Unknown History mcg (2,000 unit) capsule omega 1-vlg-sta-fish oil 1,000 mg 1 cap PO DAILY 01/15/20 03/13/25 Unknown History (120 mg-180 mg) capsule (Fish Oil) hydroxyurea 500 mg capsule 500 mg PO BID 02/07/22 09/25/24 Unknown History gabapentin 300 mg capsule mg PO DAILY 12/23/23 09/25/24 Unknown History Allergies Allergy/AdvReac Type Severity Reaction Status Date / Time amitriptyline Allergy Mild Hallucinati Verified 03/13/25 16:35 ons Penicillins Allergy Unknown Hives / Verified 03/13/25 16:35 Red Face,Itching aspirin AdvReac GI bleed Verified 03/13/25 16:35 Review of Systems Review of Systems: All systems reviewed & are unremarkable except as noted in HPI and below Constitutional: Constitutional: Reports no additional constitutional complaints ENT: Reports as per HPI Cardiovascular: Cardiovascular: Reports no additional cardiovascular complaints, Denies chest pain and Denies dyspnea Respiratory: Respiratory: Reports no additional respiratory complaints, Denies chest congestion, Denies cough and Denies dyspnea Musculoskeletal: Musculoskeletal: Reports no additional musculoskeletal complaints Integumentary/Breasts: Skin/Breast: Reports system reviewed and no additional complaints, except as docu PMFSH Past Medical History Medical History DDD (degenerative disc disease) Epistaxis Anxiety Sleepwalking Family history of colon cancer in father Hypertension PAT (paroxysmal atrial tachycardia) Vegetarian diet Carotid bruit Gastric ulcer Thrombocytosis (~02/2020) GI bleed (~02/2020) Cyst of right ovary (~02/2020) Anxiety disorder, unspecified Chronic obstructive pulmonary disease Neuropathy CHATA (obstructive sleep apnea) Primary osteoarthritis of right knee Recurrent major depression in remission Tobacco abuse Surgical History Surgical History History of left knee replacement H/O tubal ligation History of total right knee replacement History of right knee surgery retrograde femoral nail for supracondylar femur fracture Family History Family History Father Carcinoma of colon Diabetes mellitus Hypertension Malignant neoplasm of prostate Family history of alcohol abuse Depression Heart disease Mother Hypertension Family history of chronic obstructive pulmonary disease Family history of congestive heart failure Carcinoma of colon Depression Other Family history of arthritis Family history of malignant neoplasm Social History Social History Smoking status: Former smoker Tobacco type: cigarettes Smoking end date: 10/14/16 Alcohol intake: current Alcohol use details: 1 beer occasionally Substance use type: does not use Lack of Transportation: No Lack of Food: Sometimes True Current Housing: I Have Housing Concerned About Future Housing: No Difficulty Paying for Meds: No Currently Unemployed: No Education: High School Diploma/GED Difficulty w/ Childcare or Family Care: No Living arrangements: alone Occupation/Education: other Gender identity (if verbalized by the patient): Female Spiritual care concerns: No Comments At the time of my signature, I reviewed and agree with the nursing past medical, surgical, social, and family history. There is no relevant family history pertinent to the patient complaint. Exam Const: General: cooperative, healthy appearing, comfortable, no acute distress, well developed, alert and well nourished Nutritional Appearance: well nourished Orientation/consciousness: patient oriented x3 Limitations: no limitations HENMT: Head: normal to inspection Head images:  1. Reports tenderness without surrounding erythema or internal erythema. No edema noted. No bruising noted. Ears: hearing grossly normal bilaterally, external ears normal, TM's normal bilaterally, EAC's normal, mastoids normal and no periauricular adenopathy Mouth: Yes Normal oral and palatal mucosa present, Yes lip normal, Yes tongue normal and Yes moist mucous membranes Teeth and gingiva: gingiva normal, fair dentition and other (Currently not wearing dentures, multiple extracted teeth) Throat: posterior oropharynx normal, uvula midline and no uvular edema Eyes: General: appearance normal, both eyes and all related structures Alignment and Position: alignment normal Neck: Neck: normal visual inspection, full ROM, no lymphadenopathy and no meningeal signs Chest: Chest palpation & inspection: normal inspection of the chest Resp: Effort & Inspection: normal respiratory effort and able to speak in complete sentences Cardio: Rate: regular rate Skin: General skin exam: normal color and no rashes or lesions noted Neuro: General: patient oriented x3, gait normal, moves all extremities and no meningeal signs Cognition (Neuro): normal cognition Speech: normal speech Gait exam (Neuro): Normal gait present Extrem: General: normal to inspection, full ROM, capillary refill normal and normal gait Psych: Appearance: grossly normal and well kempt Mental Status: mental status grossly normal Speech and movement: Normal speech and movement present and Clear speech present Affect: normal affect Attitude: cooperative Course Course Level of Care: Express Care Visit Vital Signs Vital signs: Vital Signs Temperature 96.6 F L 03/13/25 16:34 Pulse Rate 99 03/13/25 16:34 Respiratory Rate 16 03/13/25 16:34 Blood Pressure 145/92 H 03/13/25 16:34 Pulse Oximetry 98 03/13/25 16:34 Temperature 96.6 F L 03/13/25 16:34 Pulse Rate 99 03/13/25 16:34 Respiratory Rate 16 03/13/25 16:34 Blood Pressure 145/92 H 03/13/25 16:34 Pulse Oximetry 98 03/13/25 16:34 Reviewed Medical Decision Making MDM Narrative Medical decision making narrative: Patient sitting comfortably in exam room. Nontoxic, vitals stable. Patient in no acute distress Patient presents with jaw locking, tenderness to the right mid lateral jaw without erythema, ecchymosis or edema. Patient has multiple extracted teeth. No abnormality seen on the gingiva at this time. Encourage patient to follow-up with dental provider for further evaluation, testing and treatment Discharge instructions reviewed with patient, as well as provided in writing per nursing staff. The instructions also include specific and strict return/GO TO THE ER as well as f/u information. All questions have been answered, and the patient deny any further questions with discharge and discharge plan. Some parts of this dictation were generated by voice recognition software and may contain typographical and/or grammatical inaccuracies. Differential Diagnosis Differential Diagnosis: TMJ, abscess, caries Medical Records Medical records reviewed: Yes I reviewed the external patient's medical records. Vital Signs Vital Signs: Vital Signs Temperature 96.6 F L 03/13/25 16:34 Pulse Rate 99 03/13/25 16:34 Respiratory Rate 16 03/13/25 16:34 Blood Pressure 145/92 H 03/13/25 16:34 Pulse Oximetry 98 03/13/25 16:34 Temperature 96.6 F L 03/13/25 16:34 Pulse Rate 99 03/13/25 16:34 Respiratory Rate 16 03/13/25 16:34 Blood Pressure 145/92 H 03/13/25 16:34 Pulse Oximetry 98 03/13/25 16:34 Reviewed Lab Data Lab results reviewed: Yes I reviewed the patient's lab results. Labs: Reviewed Critical Care Time Critical Care Time Critical Care Time: No Discharge Plan Discharge Clinical Impression: Jaw inflammation, right Patient Disposition: Home Condition: Stable Instructions: Antibiotic Form, Temporomandibular Disorder (ED) Additional Instructions: Warm Compresses:?Applying warm compresses to the jaw can help relax muscles and reduce pain.? Gentle Jaw Exercises:?Slow, controlled jaw movements, like opening and closing the mouth or moving the jaw [id number], can improve flexibility.? Soft Food Diets:?Avoiding hard, chewy, or crunchy foods can help reduce stress on the jaw and surrounding muscles.? Ice or Heat:?Depending on the type of jaw pain, ice or heat may be applied to the affected area for relief.? Stress Reduction:?Techniques like deep breathing, meditation, or yoga can help manage stress and reduce muscle tension.? follow-up with dental provider this week take Tylenol alternating with ibuprofen as needed for pain use a good mouthwash using saltwater gargles can help reduce inflammation Patient Language: Arabic Prescriptions: No Action cholecalciferol (vitamin D3) 50 mcg (2,000 unit) capsule 50 mcg PO DAILY omega 9-vzk-lzt-fish oil [Fish Oil] 1,000 mg (120 mg-180 mg) capsule 1 cap PO DAILY gabapentin 300 mg capsule PO DAILY diclofenac potassium 50 mg tablet 50 mg PO BID PRN (Reason: pain) Qty: 180 0RF hydroxyurea 500 mg capsule 500 mg PO BID acetaminophen 500 mg tablet 1,000 mg PO Q6H PRN (Reason: pain) Qty: 20 0RF fluticasone propionate 50 mcg/actuation spray,suspension 1 spray intranasal DAILY Qty: 16 2RF pravastatin 20 mg tablet See Rx Instructions .ROUTE .COMPLEX Qty: 90 2RF Dose Instruction: TAKE 1 TABLET BY MOUTH DAILY Rx Instructions: TAKE 1 TABLET BY MOUTH DAILY metoprolol succinate 25 mg tablet extended release 24 hr See Rx Instructions .ROUTE .COMPLEX Qty: 30 5RF Dose Instruction: TAKE 1/2 A TABLET BY MOUTH ONCE A DAY Rx Instructions: TAKE 1/2 A TABLET BY MOUTH ONCE A DAY sertraline 50 mg tablet See Rx Instructions .ROUTE .COMPLEX Qty: 90 0RF Dose Instruction: TAKE 1 TABLET BY MOUTH DAILY Rx Instructions: TAKE 1 TABLET BY MOUTH DAILY triamcinolone acetonide 0.5 % ointment See Rx Instructions .ROUTE .COMPLEX Qty: 15 0RF Dose Instruction: APPLY TOPICALLY TO THE AFFECTED AREA DAILY Rx Instructions: APPLY TOPICALLY TO THE AFFECTED AREA DAILY albuterol sulfate 90 mcg/actuation HFA aerosol inhaler 1 inh inhalation Q4H PRN (Reason: shortness of breath or wheezing) Qty: 6.7 3RF Follow-up/Referrals: Ranjna Mcnamara MD [Primary Care Provider] - 1 Week (express care follow up ) Stand Alone Forms: Work/School Release IP Time of Disposition: 16:45
[2025-03-13 16:34] VITALS: BP 145/92; PULSE 99; RESP 16; TEMP 35.9; O2SAT 98
== END 2025-03-13 16:54 | disposition home or self-care (01) ==
PROVIDERS: Emergency Provider Nurse Practitioner; PCP Family Medicine
DX: R68.84 Jaw pain (principal); I10 Essential (primary) hypertension; Z87.891 Personal history of nicotine dependence
CPT/HCPCS: 99211; G0463

== ENCOUNTER 2025-04-19 10:55 | Outpatient (CLI) | payer MEDICARE, SELFPAY ==
--- NOTE | ~2025-04-19 | XR_ITS ---
EXAM: XR facial bones min 3V, XR mandible min 4V DATE: 04/19/2025 11:56 HISTORY: S03.41XA - Sprain of jaw, right side, initial encounter . COMPARISON: None available. FINDINGS: Decreased mineralization. No abnormal intracranial calcification. No lytic or blastic lesi ons. The aerated spaces are clear. Symmetric, intact orbits. Edentulous maxillary arch. Cervical spin e degenerative disc disease. No acute fracture or dislocation. Mild degenerative changes in the bilat eral TMJs. IMPRESSION: Osteopenia. Mild degenerative change in the bilateral TMJs. If pain persists, consider MR I of the TMJs for further evaluation. Reviewed, dictated and finalized at location K. IMPRESSION: Osteopenia. Mild degenerative change in the bilateral TMJs. If pain persists, consider MRI of the TMJs for further evaluation.
== END 2025-04-19 10:56 | disposition home or self-care (01) ==
LOC: GOSHIMG 10:55
PROVIDERS: PCP Family Medicine; Visit Provider Nurse Practitioner Family
DX: S03.41XA Sprain of jaw, right side, initial encounter (principal); X58.XXXA Exposure to other specified factors, initial encounter; M85.88 Other specified disorders of bone density and structure, other site
CPT/HCPCS: 70110; 70150

== ENCOUNTER 2025-05-26 12:30 | Emergency (ER) | payer MEDICARE, SELFPAY ==
--- NOTE | ~2025-05-26 | CT_ITS ---
EXAMINATION: CT abdomen pelvis w con DATE: 05/26/2025 18:11 INDICATION: epigsatric/RUQ pain, nausea, decreased funmi TECHNIQUE: Computed tomography (CT) of the abdomen and pelvis was performed with 100 mL Omnipaque-350 intravenous contrast. Automated exposure control and iterative reconstruction technique were employe d. The dose-length product was 273.00 mGy-cm. COMPARISON: CT pelvis 03/05/2018. FINDINGS: Lower thorax: Unremarkable Liver: Normal. Biliary/Gallbladder: Mild mucosal hyperemia of the gallbladder neck and cystic duct, presumably react alondra, gallbladder otherwise normal No bile duct dilation. Pancreas: Mild fatty atrophy. Spleen: Normal. Adrenals:No mass. Kidneys: No suspicious mass, obstructing stone, or hydronephrosis. GI tract: Mild distal esophageal and gastric wall edema. Proximal duodenal mucosal hyperemia with mil d wall thickening and surrounding inflammatory change. No small or large bowel dilation. Appendix not visualized. Mesentery/Peritoneum: No ascites, mass, or free air. Retroperitoneum: No mass. Atherosclerotic calcifications of intra-abdominal arterial vessels. Pelvis: Pelvic organs are within normal limits. Coarse calcification in the right ovary. 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 Soft Tissues: Soft tissues and body wall unremarkable. Bones: No acute osseous finding. Partially visualized right femoral fixation hardware. Grade 1 anter olisthesis at L5-S1. IMPRESSION: Mild esophagitis/gastritis. Duodenitis. Reviewed, dictated and finalized at location K.
--- OUTSIDE RECORDS SUMMARY | 2025-05-26 12:33 | XMS_ITS | Encounter Summary ---
Author Organization [facility] Address [facility] [place] [address] Care Team Providers Care Family Partner Name Role Phone None, Provider Primary Care Provider Bladimir Bustamante MD Unavailable [phone] Encounter Details Date Type Department Care Team (Late st Contact Info) Description 05/02/2020 Prep for Procedure [facility] [place] [address] Bladimir Gonzalez MD [address] [id number] Social History Tobacco Use Types Packs/Day Years Used Date Smoking Tobacco: Never Smokeless Tobacco: Never Alcohol Use Standard Drinks/Week Comments Yes 0 (1 standard drink = 0.6 oz pur e alcohol) Comments No Sex and Gender Information Value Date Recorded Sex Assigned at Not on file Legal Sex Female 8:12 PM CDT Gender Identity Not on file Sexual Orientation Not on file COVID-19 Exposure Response Date Recorded In the last month, have you been in contact with someone who was confirmed or suspected to have Coronavirus / COVID-19? No / Unsure 05/03/2020 8:30 AM CDT documented as of this encounter Functional Status * RETIRED Are you deaf or do you have serious difficulty hearing Answer Date of Assessment Author Status No 02/21/2020 6:03 PM CDT Activ e * RETIRED Are you blind or do you have serious difficulty seeing, even when wearing glasses? Answer Date of Assessment Author Status No 02/21/2020 6:03 PM CDT Activ e * Do you have serious difficulty walking or climbing stairs? Answer Date of Assessment Author Status No 02/21/2020 6:03 PM CDT Judie Casiano RN Active * Do you have difficulty dressing or bathing? Answer Date of Assessment Author Status No 02/21/2020 6:03 PM CDT Judie Casiano RN Active * Because of a physical, mental, or emotional condition, do you have difficulty doing errands alone such as visiting a doctor's office or shopping? Answer Date of Assessment Author Status No 02/21/2020 6:03 PM CDT Judie Casiano RN Active documented as of this encounter Mental Status * Because of a physical, mental, or emotional condition, do you have serious difficulty concentrating, remembering, or making decisions? Answer Entry Date Author Status No 02/21/2020 6:03 PM CDT Judie Casiano RN Active documented in this encounter Plan of Treatment Not on file documented as of this encounter Results * RESPIRATORY PCR PANEL 2 ([facility] PATIENTS ONLY) (05/02/2020 10:12 AM CDT) ADENOVIRUS PCR (RESP) NOT DETECTED NOT DETECTED 05/02/2020 1:46 PM CDT [facility] CORONAVIRUS 229E PCR (RESP) NOT DETECTED NOT DETECTED 05/02/2020 1:46 PM CDT [facility] CORONAVIRUS HKU1 PCR (RESP) NOT DETECTED NOT DETECTED 05/02/2020 1:46 PM CDT [facility] CORONAVIRUS NL63 PCR (RESP) NOT DETECTED NOT DETECTED 05/02/2020 1:46 PM CDT [facility] CORONAVIRUS OC43 PCR (RESP) NOT DETECTED NOT DETECTED 05/02/2020 1:46 PM CDT [facility] METAPNEUMOVIRUS PCR (RESP) NOT DETECTED NOT DETECTED 05/02/2020 1:46 PM CDT [facility] RHINOVIRUS/ENTEROV IRUS PCR (RESP) NOT DETECTED NOT DETECTED 05/02/2020 1:46 PM CDT [facility] INFLUENZA A PCR (RESP) NOT DETECTED NOT DETECTED 05/02/2020 1:46 PM CDT [facility] INFLUENZA B PCR (RESP) NOT DETECTED NOT DETECTED 05/02/2020 1:46 PM CDT [facility] PARAINFLUENZA 1 PCR (RESP) NOT DETECTED NOT DETECTED 05/02/2020 1:46 PM CDT [facility] PARAINFLUENZA 2 PCR (RESP) NOT DETECTED NOT DETECTED 05/02/2020 1:46 PM CDT [facility] PARAINFLUENZA 3 PCR (RESP) NOT DETECTED NOT DETECTED 05/02/2020 1:46 PM CDT [facility] PARAINFLUENZA 4 PCR (RESP) NOT DETECTED NOT DETECTED 05/02/2020 1:46 PM CDT [facility] RSV PCR (RESP) NOT DETECTED NOT DETECTED 05/02/2020 1:46 PM CDT [facility] B PARAPERTUSIS PCR (RESP) NOT DETECTED NOT DETECTED 05/02/2020 1:46 PM CDT [facility] BORDETELLA PERTUSSIS PCR (RESP) NOT DETECTED NOT DETECTED 05/02/2020 1:46 PM CDT [facility] CHLAMYDOPHILA PNEUMONIAE PCR (RESP) NOT DETECTED NOT DETECTED 05/02/2020 1:46 PM CDT [facility] MYCOPLASMA PNEUMONIAE PCR (RESP) NOT DETECTED NOT DETECTED 05/02/2020 1:46 PM CDT [facility] CORONAVIRUS SARS COV 2 PCR (RESP) NOT DETECTED NOT DETECTED 05/02/2020 1:46 PM CDT [facility] Comment: THE SARS-CoV-2 TEST HAS BEEN AUTHORIZED BY THE FDA UNDER AN EUA FOR USE BY AUTHORIZED LABORATORIES. NASOPHARYNGEAL STRUCTURE / Unknown 05/02/2020 10:12 AM CDT Bladimir Gonzalez MD MICROBIOLOGY - GENERAL BELJulisa ITALO Final Result [facility] [address] [place] [address], documented in this encounter Visit Diagnoses Diagnosis Gastric ulcer- Primary Gastric ulcer, unspecified as acute or chronic, without mention of hemorrhage, perforation, or obstruction documented in this encounter Additional Health Concerns Infection Onset Date Last Indicated Resolved Time COVID-19 Rule Out 05/02/2020 05/02/2020 05/02/2020 1:46 PM CDT documented as of this encounter Care Teams Family Partner Relationship Specialty Start Date End Date None, Provider, PCP - General 05/03/20 Bladimir Gonzalez MD [address] [facility] [address] [place] [address] GASTROENTEROLOGY 04/07/20 documented as of this encounter
--- OUTSIDE RECORDS SUMMARY | 2025-05-26 12:33 | XMS_ITS | Encounter Summary ---
Author Organization [facility] Healthcare Address [address] [place] [address] Care Team Providers Care Sack Cleaning Hand Name Role Phone Charan Khan MD, Layo Unavailable [phone] Ronny Mcnamara MD Primary Care Provider Renea Kemp CUSTOMER QUALITY ENGINEER Unavailable [phone] Ronal Jay CUSTOMER QUALITY ENGINEER Unavailable [phone] Encounter Details Date Type Department Care Team (Late st Contact Info) Description 05/05/2021 Telephone [facility] [address] [place] [address] Vielka Issa, RT Social History Tobacco Use Types Packs/Day Years Used Date Smoking Tobacco: Former Cigarettes Q uit: 2018 Smokeless Tobacco: Never Alcohol Use Standard Drinks/Week Comments Yes 0 (1 standard drink = 0.6 oz pur e alcohol) Comments Unknown Sex and Gender Information Value Date Recorded Sex Assigned at Not on file Legal Sex Female 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 Gender Identity Not on file Sexual Orientation Not on file documented as of this encounter Plan of Treatment Not on file documented as of this encounter Visit Diagnoses Not on filedocumented in this encounter Care Teams Sack Cleaning Hand Relationship Specialty Start Date End Date Ronny Mcnamara MD PCP - General Family Practice 02/07/21 Layo Farrar Jr., MD Medical Oncologist/Computer Education Teacher Medical Oncology 04/11/20 11/12/22 Renea Kemp NP [address] [place] [id number] Nurse Practitioner Medical Oncology 11/13/22 07/16/24 Ronal Jay NP [address] [address] Nurse Practitioner Orthopedic Surgery 01/16/24 documented as of this encounter
--- OUTSIDE RECORDS SUMMARY | 2025-05-26 12:33 | XMS_ITS | Clinical Summary ---
Author Organization [facility] Address [address] [place] [address] Care Team Providers Care Fisher Sponge Hooking Name Role Phone Ronny Mcnamara MD Primary Care Provider Ronal Jay NP Unavailable [phone] Allergies Active Allergy Reactions Criticality Noted Date Comments Aspirin Other (See comments) Low 11/08/2020 Pt can't have anything with aspirin Codeine Itching Low 10/31/2018 Nsaids (Non-Steroidal Anti-Inflammatory Drug) Unknown 10/11/2020 Hx of bleeding ulcer Penicillins Itching,Rash Medium 06/25/2015 Medications pravastatin (PRAVACHOL) 20 mg tabletIndicati ons:hyperlipid emia Take 1 tablet (20 mg total) by mouth every morning 10/16/19 19 Active ywksq-5-mon-ep a-dpa-fish oil 1,050-1,200 mg capsuleIndicat ions:supplemen t Take 1 capsule by mouth every morning Active metoprolol XL (TOPROL-XL) 25 mg extended release tabletIndicati ons:hypertensi on Take 2 tablets (50 mg total) by mouth every morning 2 tablets Active albuterol HFA (PROVENTIL HFA,VENTOLIN HFA,PROAIR HFA) 90 mcg/actuation inhalerIndicat ions:allergies Inhale 2 puffs as needed for shortness of breath 09/21/20 22 Active cholecalcifero l (VITAMIN D-3) 2000 unit capsuleIndicat ions:supplemen t Take 1 capsule (2,000 Units total) by mouth every morning Active acetaminophen (TYLENOL EXTRA STRENGTH ORAL)Indicatio ns:supplement Take 2 tablets by mouth as needed Active hydroxyurea (HYDREA) 500 mg capsuleIndicat ions:Myeloprol iferative disease (HCC) Take 2 pills M-Th and 1 pill Fri-Sun 145 capsule 3 07/13/20 24 Active triamcinolone (KENALOG) 0.5 % ointmentIndica tions:skin rash Apply topically as needed for irritation or rash 08/17/20 24 Active sertraline (ZOLOFT) 50 mg tabletIndicati ons:Anxiety with Depression Take 1 tablet (50 mg total) by mouth every morning 11/02/19 25 Active gabapentin (NEURONTIN) 300 mg capsuleIndicat ions:Lumbar radiculitis,Bi lateral hand numbness TAKE 1 CAPSULE(300 MG) BY MOUTH THREE TIMES DAILY 90 capsule 2 02/27/20 25 Active traMADoL (ULTRAM) 50 mg tabletIndicati ons:Lumbar radiculitis Take 1 tablet (50 mg total) by mouth every 6 (six) hours as needed for pain for pain 120 tablet 05/19/20 25 Active traMADoL (ULTRAM) 50 mg tabletIndicati ons:Lumbar radiculitis Take 1 tablet (50 mg total) by mouth every 6 (six) hours as needed for pain for pain 120 tablet 04/23/20 25 025 Discontinued traMADoL (ULTRAM) 50 mg tabletIndicati ons:Lumbar radiculitis Take 1 tablet (50 mg total) by mouth every 6 (six) hours as needed for pain for pain 120 tablet 05/19/20 25 025 Discontinued(Re order) Active Problems Problem Noted Date Diagnosed Date Left carpal tunnel syndrome 12/16/2024 Essential (primary) hypertension 01/16/2024 Hyperlipidemia, unspecified 01/16/2024 Sleep apnea, unspecified 01/16/2024 Unspecified osteoarthritis, unspecified site 01/2024 Arthritis of knee 01/14/2024 Primary osteoarthritis of left knee 12/19/2023 Myeloproliferative disease 11/03/2020 Essential thrombocytosis 03/24/2020 GI bleed 02/21/2020 De Quervain's disease (radial styloid tenosynovi tis) 11/23/2019 Angina pectoris 01/04/2017 Hereditary and idiopathic neuropathy, unspecifie d 01/04/2017 senior living (current) use of aspirin 01/04/2017 Tobacco use 01/04/2017 Angina pectoris 01/04/2017 Constipation 12/21/2016 Constipation 12/20/2016 Hypo-osmolality and hyponatremia 12/20/2016 Local infection of the skin and subcutaneous tissue, unspecified 12/20/2016 Major depressive disorder, single episode, unspe cified 12/20/2016 Unilateral primary osteoarthritis, right knee Polyneuropathy, unspecified 12/20/2016 Other specified hypothyroidism 12/20/2016 Other idiopathic peripheral autonomic neuropathy 12/20/2016 Other forms of angina pectoris 12/20/2016 Aftercare following joint replacement surgery Aftercare following joint replacement surgery Presence of right artificial knee joint 12/19/19 17 Acute opioid withdrawal 06/25/2015 Chronic low back pain 06/25/2015 Depression 06/25/2015 Opioid dependence 06/25/2015 Abnormal Pap smear of cervix 04/11/2015 Intractable nausea and vomiting 08/13/2014 Pap smear, as part of routine gynecological exam ination 03/22/2014 Visit for routine supervisor dried yeast exam 03/22/2014 TIA (transient ischemic attack) 10/19/2013 Lumbar radiculopathy 10/19/2013 Cervical dysplasia 04/08/2013 Leg muscle spasm 12/15/2012 Restless leg syndrome 12/05/2012 Tinnitus of both ears 10/13/2012 Leg swelling 05/17/2012 Encounters Date Type Department Care Team Description 04/23/2025 10:20 AM CDT Office Visit [facility] Orthopaedic Surgery [facility] Medicine 6th [place] [address] [place] [address] Jack Ambrosio MD Bilateral shoulder pain, unspecified chronicity (Primary Dx) from Last 3 Months Immunizations Immunization Administration Dates Next Due Influenza, Quadrivalent, Hig h Dose, Preservative Free, Intrr 07/13/2020 Influenza, Trivalent, High D ose, Split, Preservative Free, Intramuscular 08/07/2019 Influenza, Unspecified 06/07/2021 Pfizer SARS-CoV-2 Monovalent Vaccination (12+ Yrs) PURPLE 01/03/2021,12/13/2020 Surgical History Surgery Date Site/Laterality Comments REPLACEMENT TOTAL KNEE Bilateral right- 2014, left- 01/2024 FEMUR FRACTURE SURGERY 10/14/2014 - 10/13/2015 Right FL UPPER GI AIR CONTRAST W KUB 11/18/2018 Left FL UPPER GI AIR CONTRAST W KUB 03/03/2019 Left FL UPPER GI AIR CONTRAST W KUB 04/21/2019 Left FL UPPER GI AIR CONTRAST W KUB 08/04/2019 Left FL UPPER GI AIR CONTRAST W KUB 03/22/2020 Left COLONOSCOPY last one wass 02/2020 FL UPPER GI AIR CONTRAST W KUB 06/21/2020 Left FLUORO GUIDED INJECTION SHOU LDER RIGHT 10/04/2020 Right FLUORO GUIDED ASPIRATION OR INJECTION LARGE JOINT RIGHT 01/16/2021 Right FLUORO GUIDED INJECTION SHOU LDER RIGHT 05/08/2021 Right FLUORO GUIDED INJECTION SHOU LDER RIGHT 08/14/2021 Right FLUORO GUIDED INJECTION SHOU LDER RIGHT 12/11/2021 Right FLUORO GUIDED INJECTION SHOU LDER RIGHT 03/26/2022 Right FLUORO GUIDED INJECTION SHOU LDER RIGHT 07/23/2022 Right FLUORO GUIDED ASPIRATION OR INJECTION LARGE JOINT BILATERAL 06/24/2023 Bilateral ESOPHAGOGASTRODUODENOSCOPY 02/12/2020 - 03/13/2020 ulcer biopsy ESOPHAGOGASTRODUODENOSCOPY 04/13/2020 - 05/13/2020 CERVICAL BIOPSY W/ LOOP ELEC TRODE EXCISION 03/14/2013 - 04/12/2013 OTHER SURGICAL HISTORY 01/13/2024 - 02/11/2024 ADDUCTOR CANAL NERVE BLOCK WITH ON Q CATHETER PLACEMENT Medical History Medical History Date Comments Anxiety Arthritis Hypercholesteremia Peripheral neuropathy History of TIAs 2012 h/o TIA after katheryn menendez 2012-- Experience transient expressive aphasia X ~48 hours Aspiration into airway 2014 during [facility] Sleep apnea Pt denies h/o OS A and has never used CPAP machine Hypertension Myeloproliferative disorder (HCC) 2019 Myeloproliferative disorder dxd 02/2020 (+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)-- Treated with Hydroxyurea since 03/2020 History of GI bleed 09/2020 Family History Medical History Relation Name Comments Cancer Father Prostate cancer Father Gout Mother Heart disease Mother Anesthesia problems Neg Hx Relation Name Status Comments Father Mother Social History Tobacco Use Types Packs/Day Years Used Date Smoking Tobacco: Former Cigarettes 0.5 52 1 966 - 2018 Passive Smoke Exposure: Current Smokeless Tobacco: Never Tobacco Cessation:Counseling Given: Not Answered Alcohol Use Standard Drinks/Week Comments Yes 0 (1 standard drink = 0.6 oz pur e alcohol) AUDIT-C Answer Date Recorded Q1: How often do you have a drink containing alcohol? 4 or more times a week 12/22/2024 Q2: How many drinks containi ng alcohol do you have on a typical day when you are drinking? 1 or 2 Q3: How often do you have si x or more drinks on one occasion? Never 12/22/2024 Personal Safety Answer Date Recorded Have you ever been in or are you currently in a harmful physical or emotional relationship or is someone making you feel afraid or unsafe? Denies 01/11/2025 Comments No Sex and Gender Information Value Date Recorded Sex Assigned at Not on file Legal Sex Female 11:36 AM ANESTHESIA DIRECTOR Gender Identity Not on file Sexual Orientation Not on file Obstetrics History Last Filed Vital Signs Vital Sign Reading Time Taken Comments Blood Pressure 111/77 01/20/2025 10:40 AM CDT Pulse 98 01/20/2025 10:40 AM CDT Temperature 36.1 C (96.9 F) 01/20/2025 10:40 AM CDT Respiratory Rate 18 01/20/2025 10:40 AM CDT Oxygen Saturation 99% 01/20/2025 10:40 AM CDT Inhaled Oxygen Concentration - - Weight 68.9 kg (152 lb) 01/20/2025 10:40 AM CDT Height 162.6 cm (5' 4) 01/20/2025 10:40 AM CDT Body Mass Index 26.09 01/20/2025 10:40 AM CDT Plan of Treatment Health Maintenance Due Date Last Done Comments Colon Cancer Screening-Colonoscopy 1955 Depression Screening 1955 Hepatitis C Screening 1955 Osteoporosis Screening-Bone Density Scan 1955 DTaP/Tdap/Td Vaccine (1 - Tdap) 1964 Hepatitis B Screening 1971 Pneumococcal vaccine 65+ (1 of 2 - PCV) 1972 Zoster Vaccine (1 of 2) 1972 Lung Cancer Screening 2003 Breast Cancer Screening-Mammogram 03/10/2014 013 Well Visit 65+ 2018 Covid-19 Vaccine (3 - Pfizer risk series) 01/31/2021 01/03/2021, 12/13/2020 Influenza Vaccine (#1) 2025 , 07/13/2020, 08/07/2019 Fall Risk Assessment 01/11/2026 01/11/2025 Medical Devices Implanted Type Area Director Of Primary Care Device Identifier Shelf Expiration Date Model / Serial / Lot [employer] Attune Fb Tib Base Sz 6 Por [id number] - [id number] Implanted:Qty: 1 on 01/14/2024 by Bladimir Rey MD at [facility] Left: Knee [employer] 11/13/2033 [id number] / / [id number] [employer] Insert Tibial Knee Fixed Lm Posterior Stabilized Attune 5mm Size 5 Polyethylene [id number] - [id number] Implanted:Qty: 1 on 01/14/2024 by Bladimir Rey MD at [facility] Left: Knee [employer] 04/12/2031 [id number] / / [id number] [employer] Attune Cruciate Retain Cementless Knee Left 5 Component Femoral [id number] - [id number] Implanted:Qty: 1 on 01/14/2024 by Bladimir Rey MD at [facility] Left: Knee [employer] 03/13/2033 [id number] / / [id number] Procedures Procedure Name Priority Date/Time Associated Diagnosis Comments ND ARTHROCENTESIS ASPIR&/INJ MAJOR JT/BURSA W/O US Routine 04/23/2025 10:20 AM CDT Bilateral shoulder pain, unspecified chronicity CBC MORPHOLOGY Routine 04/20/2025 11:04 AM CDT RETICULOCYTES Routine 04/20/2025 11:04 AM CDT Myeloproliferative disease (HCC) CBC WITH AUTO DIFFERENTIAL Routine 04/20/2025 11:04 AM CDT Myeloproliferative disease (HCC) from Last 3 Months Results * ND ARTHROCENTESIS ASPIR&/INJ MAJOR JT/BURSA W/O US (04/23/2025 10:20 AM CDT) Narrative Jack Ambrosio MD - 04/23/2025 10:20 AM CDT Jack Ambrosio MD 04/23/2025 9:20 PM Large Joint Injection: bilateral subacromial bursa Performed by: Jack Ambrosio MD Authorized by: Jack Ambrosio MD Large Joint Injection/Aspiration: Consent Given by: Patient Verbal consent obtained: Yes Written consent obtained: No Supporting Documentation: Indications: Pain Procedure Details: Location: Shoulder Site: Bilateral subacromial bursa Needle Size: 25 G Approach: Anterolateral Ultrasound guided: No Fluroscopic guidance: No Medications Right Large Joint Injection: 4 mL lidocaine 10 mg/mL (1 %); 40 mg triamcinolone 40 mg/mL Medications Left Large Joint Injection: 4 mL lidocaine 10 mg/mL (1 %); 40 mg triamcinolone 40 mg/mL Jack Ambrosio MD IN CLINIC/BEDSIDE ORDERABLE S Final Result * CBC MORPHOLOGY (04/20/2025 11:04 AM CDT) CBC MORPHOLOGY NORMAL [facility] Comment: Target cells 1 + Anisocytosis 1 + Macrocytosis 3 + Basophilic stippling 1 + Polychromasia 1 + Hypochromasia 1 + Ovalocytes 1 + 04/20/2025 11:0 4 AM CDT 04/20/2025 11:05 AM CDT Ksenia Leung MECHANICAL MAINTENANCE ENGINEER LAB BLOOD ORDERABLES Final Result [facility] [address] [place] [address] * (ABNORMAL) CBC with auto differential (04/20/2025 11:04 AM CDT) WBC 4.9 3.8 - 10.8 Thousand/u L [facility] RBC, POC 2.65(L) 3.80 - 5.10 Million/uL [facility] Hgb 10.4(L) 11.7 - 15.5 g/dL [facility] Hct 31.6(L) 35.0 - 45.0 % [facility] MCV 119.2(H) 80.0 - 100.0 fL [facility] MCH 39.2(H) 27.0 - 33.0 pg [facility] MCHC 32.9 32.0 - 36.0 g/dL [facility] Comment: For adults, a slight decrease in the calculated MCHC value (in the range of 30 to 32 g/dL) is most likely not clinically significant; however, it should be interpreted with caution in correlation with other red cell parameters and the patient's clinical condition. Rdw 18.2(H) 11.0 - 15.0 % [facility] Platelets 443(H) 140 - 400 Thousand/u L [facility] MPV 10.2 7.5 - 12.5 fL [facility] Neutrophils, abs 2,940 1,500 - 7,800 cells/uL [facility] Lymphocytes, abs 1,303 850 - 3,900 cells/uL [facility] Monocyte abs 417 200 - 950 cells/uL [facility] Eosinophils, abs 172 15 - 500 cells/uL [facility] Basophils, abs 69 0 - 200 cells/uL [facility] Neutrophils 60 % [facility] Lymphocyte pct 26.6 % [facility] Monocytes 8.5 % [facility] Eosinophils 3.5 % [facility] Basophils 1.4 % [facility] Blood 04/20/2025 11:0 4 AM CDT 04/20/2025 11:05 AM CDT us Ksenia Leung MECHANICAL MAINTENANCE ENGINEER LAB BLOOD ORDERABLES Final Result [facility] [id number] [place] [id number] * Reticulocyte Count (04/20/2025 11:04 AM CDT) Reticulocyte count, automated 1.5 % [facility] Reticulocyte, absolute 39,750 20,000 - 80,000 cells/uL [facility] Blood 04/20/2025 11:0 4 AM CDT 04/20/2025 11:05 AM CDT Ksenia Leung MECHANICAL MAINTENANCE ENGINEER LAB BLOOD ORDERABLES Final Result [facility] [address] [place] [id number] from Last 3 Months Insurance [facility] MEDICARE ADVANTAGE [place] [id number] MEDICARE ADVANTAGE [facility] MEDICARE ADVANTAGE Advance Directives For more information, please contact: [phone] * Full Code (Latest Code Status on File) Date Activated Date Inactivated Comments 01/14/2024 5:17 PM 01/16/2024 5:41 PM Care Teams Fisher Sponge Hooking Relationship Specialty Start Date End Date Ronny Mcnamara MD PCP - General Family Practice 02/07/21 Ronal Jay NP [address] [place] [address] DR GATES [address] [place] [id number] Nurse Practitioner Orthopedic Surgery 01/16/24
--- OUTSIDE RECORDS SUMMARY | 2025-05-26 12:33 | XMS_ITS | Clinical Summary ---
Author Organization [facility] Address [address] [place] [address] Phone Care Team Providers Care Image Scientist Name Role Phone Sita Ladd MD Primary Care Provider [phone] Allergies Active Allergy Reactions Criticality Noted Date Comments Codeine Itching Low 10/31/2018 Penicillins Hives,Itching,Rash High 05/17/2012 Medications gabapentin (NEURONTIN) 600 MG Tablet 02/13/2020 Active metoprolol Succinate (TOPROL-XL) 25 MG TABLET SR 24 HR Take 25 mg by mouth. Active fish oil-omega-3 fatty acids 1000 MG Capsule Take 1,000 mg by mouth. Active Multiple Vitamin (DAILY VITAMINS) Tablet Take by mouth. Active pravastatin (PRAVACHOL) 20 MG Tablet Take 20 mg by mouth. 10/16/2018 Active hydrOXYzine (ATARAX) 10 MG Tablet Take 10-20 mg by mouth. Active Cod Liver Oil 10 MINIM Capsule Take by mouth. Active Active Problems Problem Noted Date Diagnosed Date Essential thrombocythemia 03/18/2020 Family History Medical History Relation Name Comments Cancer Father Congestive Heart Failure Mother Relation Name Status Comments Father Mother Social History Tobacco Use Types Packs/Day Years Used Date Smoking Tobacco: Former Cigarettes Q uit: 2016 Smokeless Tobacco: Never Alcohol Use Standard Drinks/Week Comments Yes 14 (1 standard drink = 0.6 oz pu re alcohol) couple glasses per day PHQ-2 Answer Date Recorded Total Score - Questions 1-9 1 02/2020 Education Answer Date Recorded What is the highest level of school you have completed or the highest degree you have received? High school graduate 03/18/2020 Sexually Active Control Partners Comments Never Comments No Sex and Gender Information Value Date Recorded Sex Assigned at Not on file Legal Sex Female 9:41 AM CDT Gender Identity Not on file Sexual Orientation Not on file Occupation Industry Job Start Date Job End Date retired Not on file Not on file Not on file Last Filed Vital Signs Vital Sign Reading Time Taken Comments Blood Pressure 140/86 03/18/2020 9:23 AM CDT Pulse 76 03/18/2020 9:23 AM CDT Temperature 36.1 C (97 F) 03/18/2020 9:23 AM CDT Respiratory Rate 18 03/18/2020 9:23 AM CDT Oxygen Saturation 93% 03/18/2020 9:23 AM CDT Inhaled Oxygen Concentration - - Weight 79.8 kg (175 lb 14.4 oz) 020 9:23 AM CDT Height 167.6 cm (5' 6) 03/18/2020 9:23 AM CDT Body Mass Index 28.39 03/18/2020 9:23 AM CDT Plan of Treatment Health Maintenance Due Date Last Done Comments Hepatitis C Virus (HCV) Screening 1955 SARS-COV-2 Immunization (#1) 1958 Pneumococcal Immunization (50+ years) (1 of 2 - PCV) 1972 Cologuard 1998 Immunochemical Fecal Occult Blood 02/20/2021 02/21/2020 Influenza Immunization (#1) 06/14/202507/15, 07/24/2018, 08/12/2017, Additional history exists Respiratory Syncytial Virus (RSV) Immunization (Adult) (1 - 1-dose 75+ series) 2028 Colonoscopy 02/22/2030 02/23/2020 Colorectal Cancer Screening 02/22/2030 DTaP/Tdap/Td Immunization Discontinued 07/26/2017 TdaP Immunization Completed 07/26/2017 Zoster Immunization Completed 04/18/2019, 9 Hepatitis B Immunization Aged Out No longer eligible based on patient's age to complete this topic Human Papillomavirus (HPV) Immunization Aged Out No longer eligible based on patient's age to complete this topic Meningococcal Immunization (ACWY) Aged Out No longer eligible based on patient's age to complete this topic Rotavirus Immunization Aged Out No lo nger eligible based on patient's age to complete this topic Insurance MEDICARE C [employer] Care Teams Image Scientist Relationship Specialty Start Date End Date Sita Ladd MD [phone] [place] [address] PCP - General Family Medicine 03/18/20
--- OUTSIDE RECORDS SUMMARY | 2025-05-26 12:33 | XMS_ITS | Clinical Summary ---
Author Organization [facility] Address [address] [place] [address] Care Team Providers Care Outside Sales Professional Name Role Phone None, Provider MD Primary Care Provider Bladimir Bustamante MD Unavailable [phone] Allergies Active Allergy Reactions Criticality Noted Date Comments Codeine Itching Low 10/31/2018 Penicillins Hives,Itching,Rash High 05/17/2012 Medications hydrOXYzine 10 MG tablet Take 10-20 mg by mouth nightly as needed (sleep). Active metoprolol succinate ER 25 MG 24 hr tablet Take 25 mg by mouth daily. Active pravastatin 20 MG tablet Take 20 mg by mouth daily. Active gabapentin 600 MG tablet Take 600 mg by mouth 3 (three) times daily. Active fish oil 1000 MG Cap capsule Take 1,000 mg by mouth daily. Active vitamin D3, cholecalciferol , 1000 UNIT Tab tablet Take 3,000 Units by mouth daily. Active hydroxyurea 500 MG capsule Take 500 mg by mouth daily. Active Cod Liver Oil 10 MINIM Cap Take 1 capsule by mouth daily. Active FLUoxetine 20 MG capsule Take 20 mg by mouth daily. 04/29/2020 Active Multiple Vitamin (DAILY VITAMINS) Tab Take 1 tablet by mouth daily. Active traMADol 50 MG tablet Take 50 mg by mouth 4 (four) times daily. 04/18/2020 Active FEROSUL 325 (65 Fe) MG tablet Take 325 mg by mouth daily with breakfast. 09/20/2020 Active meloxicam 15 MG tablet Take 15 mg by mouth daily. 09/28/2020 Active vitamin B-12 (CYANOCOBALAMIN ) 1000 mcg tablet Take 1,000 mcg by mouth daily. Active pantoprazole EC (PROTONIX) 40 MG tablet Take 1 tablet (40 mg total) by mouth daily. 30 tablet 10/07/2020 Active Active Problems Problem Noted Date Diagnosed Date GI bleed 02/21/2020 Social History Tobacco Use Types Packs/Day Years Used Date Smoking Tobacco: Former Cigarettes Q uit: 2014 Smokeless Tobacco: Never Alcohol Use Standard Drinks/Week Comments Yes 0 (1 standard drink = 0.6 oz pur e alcohol) occasional wine Comments No Sex and Gender Information Value Date Recorded Sex Assigned at Not on file Legal Sex Female 8:12 PM CDT Gender Identity Not on file Sexual Orientation Not on file Last Filed Vital Signs Vital Sign Reading Time Taken Comments Blood Pressure 138/80 03/01/2024 5:00 PM CDT Pulse 65 03/01/2024 5:00 PM CDT Temperature 36.4 C (97.6 F) 03/01/2024 2:38 PM CDT Respiratory Rate 15 03/01/2024 5:00 PM CDT Oxygen Saturation 90% 03/01/2024 5:00 PM CDT Inhaled Oxygen Concentration - - Weight 75.8 kg (167 lb) 03/01/2024 2:38 PM CDT Height 167.6 cm (5' 6) 03/01/2024 2:38 PM CDT Body Mass Index 26.95 03/01/2024 2:38 PM CDT Plan of Treatment Health Maintenance Due Date Last Done Comments Hepatitis C 1971 DTaP, Tdap and Td Vaccines ( 1 - Tdap) 1972 Mammogram Screening 1993 Pneumococcal Vaccine: 50+ Years (2 of 2 - PCV) 11/27/2015 11/27/2014, 01/22/2014 Annual Medicare Wellness Visit 2018 Dexa Scan (General) 2018 COVID-19 Vaccine (3 - 2023-2 5 season) 2024 01/03/2021, 12/13/2020 RSV Immunization or 60+ Years (1 - 1-dose 75+ series) 2028 Colorectal Cancer Screening Colonoscopy (10 Years) 02/22/2030 02/23/2020, 02/23/2020 Zoster Vaccines Completed 04/18/2019, 01/21/2019, 11/27/2014 Meningococcal B Vaccine Aged Out No l onger eligible based on patient's age to complete this topic Meningococcal Vaccine Aged Out No ivonne jonny eligible based on patient's age to complete this topic RSV Immunizations Under 20 Months Aged Out No longer eligible b ased on patient's age to complete this topic Medical Devices Implanted Type Area Lna Device Identifier Shelf Expiration Date Model / Serial / Lot Knee Thigh Procedures Procedure Name Priority Date/Time Associated Diagnosis Comments COLONOSCOPY Routine 02/23/2020 1:06 PM CDT from Last 3 Months or Most Recently Relevant to Health Maintenance Results * Colonoscopy (02/23/2020 1:06 PM CDT) Narrative Bladimir Gonzalez MD - 02/23/2020 1:06 PM CDT Bladimir Gonzalez MD 02/23/2020 1:51 PM BLADIMIR GONZALEZ MD, FACG, FACP COLONOSCOPY and EGD EGD INDICATION: Epigastric pain, nausea, acute blood loss anemia, hematemesis, hematochezia, heme positive stool and abnormal imaging of the stomach. POST-OP: Chronic, non-erosive gastritis and large antral ulcer. Biopsies done. SEDATION: Per Anesthesia With the patient in the left lateral decubitus position, the Olympus [id number] endoscope was used to easily intubate the esophagus and advanced to the third duodenum. Careful inspection of the mucosa was made upon insertion and withdrawal of the endoscope with retroflexion in the stomach. Findings: Esophagus: SC Jx @ 40 cm. The esophagus is normal. No esophagitis, stricture, mass or Strickland s . Stomach: Fundus, body and antrum with diffuse, chronic, non-erosive gastritis; biopsies taken throughout the stomach to rule out H. pylori. There is a 2-3 cm ulcer in the pre-pyloric area along the lesser curve and biopsies taken around the ulcer as well. The ulcer has a white base is without stigmata of bleed and is benign appearing. No AVM or malignancy. Duodenum: normal in the bulb, second and third duodenum. COLONOSCOPY INDICATION: Abnormal imaging digestive with abnormal area near the appendix as well as right colon. POST-OP: Two polyps removed. PREP: Good. With the patient in the left lateral decubitus position, the Olympus [id number] colonoscope was introduced into the rectum and advanced easily to the Terminal Ileum. Careful inspection of the mucosa was made upon insertion and withdrawal of the endoscope. FINDINGS: Terminal ileum: distal 5 cm normal. Cecum, ascending colon, transverse colon, descending colon, sigmoid colon: normal. Rectum including retroflexion: 1.0 cm and 8 mm sessile polyps removed with snare polypectomy without bleeding. No masses, AVMs, colitis or diverticulosis seen. No complications, blood loss or implants Hct 33 ASSESSMENT AND PLAN: A. Epigastric pain, nausea, acute blood loss anemia, hematemesis, hematochezia, heme positive stool and use of NSAIDS: - Secondary to large gastric ulcer with gastritis - No active GI bleeding - Follow H&H and transfuse as needed - Avoid Aspirin, nonsteroidals and anticoagulants - Continue PPI-> BID po - Follow-up biopsies and treat for H. Pylori if positive - Upper endoscopy to document healing in 8-10 weeks B. Abnormal imaging digestive with abnormal area near the appendix as well as right colon: - Unremarkable - Further recommendations per Dr. Horne (notified of findings) C. Personal history of colon polyps - Two polyps removed - If adenomatous repeat colonoscopy in five years otherwise screening colonoscopy in 10 years Bladimir Gonzalez M.D. [phone] Bladimir Gonzalez MD GI PROCEDURE ORDERABLES Fin al Result from Last 3 Months or Most Recently Relevant to Health Maintenance Insurance [facility] Advance Directives * Full Code (Latest Code Status on File) Date Activated Date Inactivated Comments 02/21/2020 5:15 PM 02/26/2020 3:48 PM Care Teams Outside Sales Professional Relationship Specialty Start Date End Date None, Provider, PCP - General 05/03/20 Bladimir Gonzalez MD [address] [facility] [address] [place] [address] GASTROENTEROLOGY 04/07/20
--- OUTSIDE RECORDS SUMMARY | 2025-05-26 12:33 | XMS_ITS | Encounter Summary ---
Author Organization [facility] Address [address] [place] [address] Care Team Providers Care Artist Scientific Name Role Phone Charan Khan MD, Layo Unavailable [phone] Ronny Mcnamara MD Primary Care Provider Renea Kemp OPHTHALMOLOGIST Unavailable [phone] Ronal Jay OPHTHALMOLOGIST Unavailable [phone] Encounter Details Date Type Department Care Team (Late st Contact Info) Description 08/11/2021 Telephone [facility] [address] [place] [address] Therese Simmons, RT Social History Tobacco Use Types Packs/Day Years Used Date Smoking Tobacco: Former Cigarettes Q uit: 2018 Smokeless Tobacco: Never Alcohol Use Standard Drinks/Week Comments Yes 0 (1 standard drink = 0.6 oz pur e alcohol) Comments Unknown Sex and Gender Information Value Date Recorded Sex Assigned at Not on file Legal Sex Female 11:36 AM OFFICE SERVICES SPECIALIST Gender Identity Not on file Sexual Orientation Not on file documented as of this encounter Plan of Treatment Not on file documented as of this encounter Visit Diagnoses Not on filedocumented in this encounter Care Teams Artist Scientific Relationship Specialty Start Date End Date Ronny Mcnamara MD PCP - General Family Practice 02/07/21 Layo Farrar Jr., MD Medical Oncologist/Transcribing Machine Operator Medical Oncology 04/11/20 11/12/22 Renea Kemp NP [address] [place] [id number] Nurse Practitioner Medical Oncology 11/13/22 07/16/24 Ronal Jay NP [address] [address] Nurse Practitioner Orthopedic Surgery 01/16/24 documented as of this encounter
--- OUTSIDE RECORDS SUMMARY | 2025-05-26 12:33 | XMS_ITS ---
Author Name Auto Generated, Auto Generated Organization [facility] Address [address] [place] [address] Phone [phone] Care Team Providers Care Gas Dispenser Name Role Phone Melba Hernandez Unavailable La Nnea Canales Unavailable aTte Kaye Unavailable [phone] Velasquez Bradshaw Unavailable Functional Status No Results Mental Status No Results Allergies and Intolerances Name Onset Date Reaction Severity NSAIDS (Non-Steroidal Anti-I nflammatory Drug) (Allergy) SatJan 15 12:38:00 EDT 2023 aspirin (Allergy) SatJan 15 12:38:00 EDT 2023 codeine (Allergy) SatJan 15 12:38:00 EDT 2023 Penicillins (Allergy) SatDec 21 20:38:00 EST 20 17 Medications Medication Directions Start Date End Date TubersoL 5 tub. unit/0.1 mL intradermal injection solution 0.1 ml VIAL (ML) Intradermal 1 Time Weekly for 2 Weeks Indication: Rule out TB 1st injection on admission, then one week after. Read between 48 and 72 hours SatJan 16 13:30:00 EDT 2023Jan 16 17:34:00 EDT 2023 TubersoL 5 tub. unit/0.1 mL intradermal injection solution Read Results VIAL (ML) Other 1 Time Weekly for 2 Weeks Indication: Rule out TB Read results between 48-72 hours after 1st and 2nd (1 week apart). If positive do chest x-ray. SatJan 16 13:30:00 EDT 2023Jan 30 01:00:00 EDT 2023 TubersoL 5 tub. unit/0.1 mL intradermal injection solution 0.1 ml VIAL (ML) Intradermal 1 Time Weekly for 2 Weeks Indication: Rule out TB 1st injection on admission, then one week after. Read between 48 and 72 hours SatJan 16 21:00:00 EDT 2023Jan 30 01:00:00 EDT 2023 Eliquis 2.5 mg tablet 1 tab TABLET Oral 2 Times Daily Indication: Blood clot prevention SatJan 15 12:42:00 EDT 2023Jan 15 17:02:00 EDT 2023 albuterol sulfate HFA 90 mcg/actuation aerosol inhaler 1 puff HFA AEROSOL WITH ADAPTER (GRAM) Inhalation PRN Every 4 Hours Indication: SOB SOB SatJan 15 12:44:00 EDT 2023Jan 30 01:00:00 EDT 2023 Vitamin C 500 mg tablet 1 tab TABLET Ora l 2 Times Daily Indication: Supplement SatJan 15 12:45:00 EDT 2023Jan 30 01:00:00 EDT 2023 cholecalciferol (vitamin D3) 50 mcg (2,000 unit) tablet 1 tab TABLET Oral 1 Time Daily Indication: Supplement SatJan 15 12:46:00 EDT 2023Jan 30 01:00:00 EDT 2023 FeroSuL 325 mg (65 mg iron) tablet 1 tab TABLET Oral 1 Time Daily Indication: Anemia SatJan 15 12:47:00 EDT 2023 Mon Jan 08 11:09:00 EDT 2023 gabapentin 600 mg tablet 1 tab TABLET Or al 1 Time Daily Indication: Pain SatJan 15 12:49:00 EDT 2023Jan 30 01:00:00 EDT 2023 hydroxyurea 500 mg capsule 500mg CAPSULE Oral 5 Times Weekly Indication: Pain SatJan 15 12:50:00 EDT 2023Jan 30 01:00:00 EDT 2023 hydroxyurea 500 mg capsule 1000 mg CAPSU LE Oral 2 Times Weekly Indication: Pain SatJan 15 12:59:00 EDT 2023Jan 30 01:00:00 EDT 2023 Fish OiL 1,000 mg (120 mg-180 mg) capsule 1 cap CAPSULE Oral 1 Time Daily Indication: Supplement SatJan 15 12:53:00 EDT 2023Jan 30 01:00:00 EDT 2023 metoprolol succinate ER 25 mg tablet,extended release 24 hr 2 tab TABLET, EXTENDED RELEASE 24 HR Oral 1 Time Daily Indication: HTN SatJan 15 12:54:00 EDT 2023Jan 30 01:00:00 EDT 2023 ondansetron 4 mg disintegrating tablet 1 tab TABLET,DISINTEGRATING Oral PRN Every 6 Hours Indication: N/V PRN N/V SatJan 15 12:54:00 EDT 2023Jan 30 01:00:00 EDT 2023 Percocet 5 mg-325 mg tablet 2 tabs TABLE T Oral PRN Every 4 Hours Indication: Pain SatJan 15 12:56:00 EDT 2023Jan 30 01:00:00 EDT 2023 pravastatin 20 mg tablet 1 tab TABLET Or al 1 Time Daily Indication: HLD SatJan 15 12:54:00 EDT 2023Jan 30 01:00:00 EDT 2023 pregabalin 25 mg capsule 1 capsule CAPSU LE Oral 1 Time Daily Indication: Pain SatJan 15 14:00:00 EDT 2023Jan 30 01:00:00 EDT 2023 Stimulant Laxative Plus 8.6 mg-50 mg tablet 1 tablet TABLET Oral 2 Times Daily Indication: Constipation SatJan 15 14:00:00 EDT 2023Jan 30 01:00:00 EDT 2023 sertraline 25 mg tablet 1 tablet TABLET Oral 1 Time Daily Indication: Depression SatJan 15 14:00:00 EDT 2023Jan 30 01:00:00 EDT 2023 Eliquis 2.5 mg tablet 1 tab TABLET Oral 2 Times Daily for 26 Days Indication: Blood clot prevention Order for 26 days SatJan 15 17:03:00 EDT 2023Jan 30 01:00:00 EDT 2023 oxyCODONE-acetaminophen 5 mg-325 mg tablet 5/325mg (TABLET) Oral PRN every 6 hours as needed for pain SatJan 11 01:00:00 EDT 2016Jan 18 01:00:00 EDT 2016 gabapentin 600 mg tablet 600mg (TABLET) Oral 4 Times Daily SatJan 11 01:00:2016Jan 18:00:00 ED2016 HYDROcodone 5 mg-acetaminophen 325 mg tablet 5/325 (TABLET) Oral PRN 1 tablet t.i.d for pain SatJan 07:00: ED2016Jan 18::2016 traMADol 50 mg tablet 50-100mg (TABLET) Oral PRN every 6 hours as needed SatJan 04::2016Jan 18:00:00 2016 ferrous sulfate 325 mg (65 mg iron) tablet 325mg (TABLET) Oral 3 Times Daily SatJan 04:00:2016Jan 18:00:00 2016 Colace 100 mg capsule 100mg (CAPSULE) Or al Every 1 Day SatJan 04::2016Jan 18::2016 HYDROcodone 7.5 mg-acetaminophen 300 mg tablet 1-2 tabs (TABLET) Oral PRN 1-2 tabs as needed every 4-6 hours for pain SatJan 04::2016Jan 07::2016 Xarelto 10 mg tablet 10mg (TABLET) Oral Every 1 Day SatJan 04::2016Jan 18::00 2016 Florastor 250 mg capsule 250mg (CAPSULE) Oral 2 Times Daily SatJan 04:00:00 2016Jan 13:59:00 ED 2017 Saline Nose 0.65 % spray aerosol 2 sprays (AEROSOL, SPRAY (ML)) Intranasal PRN every 4 hours as needed SatJan 04 01:00:2016Jan 18:00:00 ED2016 ferrous sulfate 325 mg (65 mg iron) tablet 325mg TABLET Oral 3 Times Daily SatJan 01 15:00:00 2016Jan 04:00:00 2016 [place] Complete nasal spray 2 spray AEROS OL WITH ADAPTER (ML) Intranasal - Both Nostrils PRN Every 4 Hours treat dryness inside the nose SatDec 28 01:00:00 2016Jan 04:00:00 2016 HYDROcodone 7.5 mg-acetaminophen 300 mg tablet 1-2 tabs TABLET Oral PRN Every 4 Hours Give for pain level 4-10. SatDec 25 11:08:00 2016Jan 04:00:00 2016 Xarelto 10 mg tablet 10 mg TABLET Oral 1 Time Daily for 25 Days Medication started on 12/22/2016 and should run 28 days post op as ordered. SatDec 26 09:00:00 EDT 2016Jan 04:00:00 EDT 2016 ferrous sulfate 325 mg (65 mg iron) tablet 325mg TABLET Oral 2 Times Daily SatDec 25 07:00:00 ED2016Jan 01 15:03:00 EDT 2016 Colace 100 mg capsule 100mg CAPSULE Oral Every 1 Day SatDec 26 07:00:00 EDT 2016Jan 04 01:00:00 EDT 2016 cefUROXime axetil 500 mg tablet 500 mg TABLET Oral 2 Times Daily for 7 Days SatDec 25 09:00:00 ED2016Jan 01 08:59:00 EDT 2016 HYDROcodone 7.5 mg-acetaminophen 325 mg tablet 2 tabs TABLET Oral Every 1 Day for 1 Day SatDec 24 07:00:00 EDT 2016Dec 25 06:59:00 EDT 2016 TUBErsol 5 tub. unit/0.1 mL intradermal injection solution 0.1 ml VIAL (ML) Intradermal 1 Time Weekly for 2 Weeks (PPD) 1st injection upon admission. Read after 72 hours and give 2nd injection 1 week after the 1st if result is negative. If positive result, proceed with chest x-ray to rule out active disease. SatDec 23 13:00:00 EDT 2016Jan 04:00:00 EDT 2016 TUBErsol 5 tub. unit/0.1 mL intradermal injection solution Read Results VIAL (ML) Other 1 Time Weekly for 2 Weeks Read results 72 hours after 1st and 2nd 1 week apart. If positive do chest x-ray to rule out active disease. SatDec 23 13:00:00 EDT 2016Jan 04 01:00:00 EDT 2016 sulfamethoxazole 800 mg-trimethoprim 160 mg tablet 1 Tab TABLET Oral 1 Time Daily for 7 Days SatDec 22 07:00:00 2016Dec 29 06:59:00 EDT 2016 Florastor 250 mg capsule 250mg CAPSULE O ral 2 Times Daily for 14 Days GI Prophylactic SatDec 23 09:00:00 EDT 2016Jan 04:00:00 EDT 2016 Xarelto 10 mg tablet 10mg TABLET Oral 1 Time Daily SatDec 21 07:00:00 EST 2016Dec 25 12:08:00 EDT 2017 HYDROcodone 7.5 mg-acetaminophen 300 mg tablet 1-2 tabs TABLET Oral PRN Every 6 Hours for pain rated 4-6 SatDec 21 19:00:00 EST 2016Dec 25 11:06:00 EDT 2017 levothyroxine 25 mcg tablet 1 tab TABLET Oral 1 Time Daily SatDec 21 19:00:00 EST 2016Jan 04 01:00:00 EDT 2017 aspirin 81 mg chewable tablet 1 tab TABLET, CHEWABLE Oral 1 Time Daily Sat Dec 22 07:00:00 EST 2016Jan 04 01:00:00 EDT 2016 FLUoxetine 20 mg capsule 1 tab CAPSULE O ral 1 Time Daily Sat Dec 22 07:00:00 EST 2016Jan 04:00:00 EDT 2017 gabapentin 400 mg capsule 1 cap CAPSULE Oral 3 Times Daily Sat Dec 22 07:00:00 EST 2016Jan 04 01:00:00 EDT 2017 multivitamin tablet 1 tab TABLET Oral 1 Time Daily Sat Dec 22 07:00:00 EST 2016Jan 04 01:00:00 EDT 2017 traMADol 50 mg tablet 50 mg 1-2 tabs TAB LET Oral PRN Every 6 Hours for pain Sat Dec 22 07:00:00 EST 2016Jan 04 01:00:00 EDT 2017 nitroglycerin 0.4 mg sublingual tablet 0.4 TABLET, SUBLINGUAL Oral PRN (Max 3 Doses) Sat Dec 22 07:00:00 EST 2016Jan 04 01:00:00 EDT 2016 traMADol 50 mg tablet 50-100mg (TABLET) Oral PRN 1-2 tabs every 6 hours as needed for pain SatOct 14 01:00:00 EST 2016Jan 18 01:00:00 EDT 2017 levothyroxine 25 mcg tablet 25mcg (TABLE T) Oral Every 1 Day SatOct 14 01:00:00 EST 2016Jan 18 01:00:00 EDT 2017 nitroglycerin 0.4 mg sublingual tablet 0.4mg (TABLET, SUBLINGUAL) Sublingual PRN Take 1 tab sublingual for chest pain, if no relief may take up to 3 doses total 5 minutes apart SatOct 14 01:00:00 EST 2015Jan 18 01:00:00 EDT 2017 Multivitamin 50 Plus tablet 1 tab (TABLE T) Oral Every 1 Day SatOct 14:00:00 EST 2015Jan 18 01:00:00 EDT 2016 gabapentin 400 mg capsule 400mg (CAPSULE ) Oral 3 Times Daily SatOct 14 01:00:00 EST 2015Jan 11:00:00 EDT 2016 FLUoxetine 20 mg tablet 20mg (TABLET) Or al Every 1 Day SatOct 14 01:00:00 EST 2015Jan 18 01:00:00 EDT 2016 aspirin 81 mg chewable tablet 81mg (TABLET, CHEWABLE) Oral Every 1 Day SatOct 14:00:00 EST 2015Jan 18 01:00:00 EDT 2016 Problems Active Concerns * Other specified hypothyroidism* Code: * Start Date: SatDec 21:00:00 EST 2016 * End Date: * Text: * Aftercare following joint replacement surgery* Code: * Start Date: SatDec 21::00 EST 2016 * End Date: * Text: * Major depressive disorder, single episode, unspecified* Code: * Start Date: SatDec 21:00:00 EST 2016 * End Date: * Text: * Hereditary and idiopathic neuropathy, unspecified* Code: * Start Date: SatJan 04:00:00 EDT 2016 * End Date: * Text: * Angina pectoris, unspecified* Code: * Start Date: SatJan 04 00:00:00 EDT 2016 * End Date: * Text: * long term care phlebotomist (current) use of anticoagulants* Code: * Start Date: SatJan 04 00:00:00 EDT 2016 * End Date: * Text: * long term care phlebotomist (current) use of aspirin* Code: * Start Date: SatJan 04:00:00 EDT 2016 * End Date: * Text: * Tobacco use* Code: * Start Date: SatJan 04:00:00 EDT 2016 * End Date: * Text: * Constipation, unspecified* Code: * Start Date: SatDec 21:00:00 EST 2016 * End Date: * Text: * Hypo-osmolality and hyponatremia* Code: * Start Date: SatDec 21:00:00 EST 2016 * End Date: * Text: * Presence of artificial knee joint, bilateral* Code: * Start Date: SatJan 15 00:00:00 EDT 2023 * End Date: * Text: * nursing home (current) use of opiate analgesic* Code: * Start Date: SatJan 15 00:00:00 EDT 2023 * End Date: * Text: * Unspecified osteoarthritis, unspecified site* Code: * Start Date: SatJan 15 00:00:00 EDT 2023 * End Date: * Text: * Hyperlipidemia, unspecified* Code: * Start Date: SatJan 15 00:00:00 EDT 2023 * End Date: * Text: * Essential (primary) hypertension* Code: * Start Date: SatJan 15 00:00:00 EDT 2023 * End Date: * Text: * Sleep apnea, unspecified* Code: * Start Date: SatJan 15 00:00:00 EDT 2023 * End Date: * Text: * Personal history of transient ischemic attack (TIA), and cerebral infarction without residual deficits* Code: * Start Date: SatJan 15 00:00:00 EDT 2023 * End Date: * Text: * Chronic myeloproliferative disease* Code: * Start Date: SatJan 15 00:00:00 EDT 2023 * End Date: * Text: Reason for Referral Past Medical History
--- OUTSIDE RECORDS SUMMARY | 2025-05-26 12:33 | XMS_ITS ---
Author Name Auto Generated, Auto Generated Organization [facility] Address [address] [place] [address] Phone [phone] Care Team Providers Care Fur Cleaner Name Role Phone Melba Hernandez Unavailable [phone] La Nena Canales Unavailable Tate Kaye Unavailable [phone] Velasquez Bradshaw Unavailable Functional Status No Results [...] Daily SatJan 01 15:00:00 2016Jan 04:00:00 2016 [place] Complete nasal spray 2 spray AEROS OL [...] 2016 * End Date: * Text: * director long term care (current) use of anticoagulants* Code: * Start Date: SatJan 04 00:00:00 EDT 2016 * End Date: * Text: * director long term care (current) use of aspirin* Code: * Start [...] 2023 * End Date: * Text: * longterm (current) use of opiate analgesic* Code: * [...]
--- OUTSIDE RECORDS SUMMARY | 2025-05-26 12:33 | XMS_ITS | Clinical Summary ---
Author Organization [facility] Address [address] [place] [phone] Phone Care Team Providers Care Unit Director Name Role Phone Sita Ladd MD Primary Care Pro vider Social History Tobacco Use Types Packs/Day Years Used Date Smoking Tobacco: Never Assessed Comments Unknown Sex and Gender Information Value Date Recorded Sex Assigned at Not on file Legal Sex Female 1:18 PM CDT Gender Identity Not on file Sexual Orientation Not on file Plan of Treatment Health Maintenance Due Date Last Done Comments DTAP/TDAP/TD VACCINES (1 - Tdap) 1972 BREAST CANCER SCREENING 1993 COLORECTAL SCREENING 1998 Colorectal Cancer Screening 1998 FIT-DNA Q 3 years 1998 FIT/FOBT Q 1 year 1998 Flex Sig/CT Colonography Q 5 years 1998 PNEUMOCOCCAL VACCINE 50+ YEARS (1 of 1 - PCV) 06/30/20 03 ZOSTER VACCINE (1 of 2) 2003 OSTEOPOROSIS SCREENING 2018 INFLUENZA VACCINE (#1) 2025 RSV VACCINE (60+ or ) (1 - 1-dose 75+ series) 2028 Care Teams Unit Director Relationship Specialty Start Date End Date Sita Ladd MD PCP - General Family Practice 03/09/20
[2025-05-26 12:40] VITALS: BP 132/96; PULSE 70; RESP 16; TEMP 36.8; O2SAT 97
--- NOTE | 2025-05-26 12:47 | ECG_ITS ---
Test Date: 2025-05-26 12:58:18 Measurements Intervals [place] Rate: 98 P: 60 AR: 150 QRS: 23 QRSD: 79 T: 56 QT: 333 QTc: 425 Interpretive Statements SINUS RHYTHM BASELINE ARTIFACT- I, II, III AVR, AVL, AVF NORMAL ECG Compared to ECG 03/25/2024 20:25:34 NO SIGNIFICANT CHANGE Electronically Signed On 05-26-2025 13:36:16 CDT by Timo Osorio D.O.
--- NOTE | 2025-05-26 12:48 | ED.ABDPAIN ---
HPI - Abdominal Pain General Chief Complaint: Abdominal Pain <Ankitaraf Greene, RECORD PRESSMAN - Last Filed: 05/26/25 12:50> Stated Complaint: abd pain <Ankita Greene RECORD PRESSMAN - Last Filed: 05/26/25 12:50> Time Seen by Provider: 05/26/25 12:45 <Ankita Greene RECORD PRESSMAN - Last Filed: 05/26/25 12:50> Focused HPI: Patient is a 69-year-old female who presents to the ER with mid-upper abdominal pain. She reports the pain started on Saturday, 2 days ago. Patient reports she has had similar symptoms in the past, had an upper GI study 4 years ago, and was diagnosed with an ulcer.She denies any diarrhea, urinary symptoms, or vomiting. Patient does endorse nausea. She denies any other pertinent medical history. GENERAL: Well-appearing, well-nourished, and in mild distress d/t pain. HEAD: Normocephalic, atraumatic. CHEST: Clear to auscultation. ?No respiratory distress. HEART: irregular rate NEURO: ?Alert and oriented x3. GI/: no tenderness with palpation, + BS Patient screened in triage and initial orders placed.? ?Additional care and disposition to be based upon?diagnostic testing and treatment. <Ankita Greene, RECORD PRESSMAN - Last Filed: 05/26/25 12:50> Focused HPI: Patient is a 69-year-old female who presents to the ER with mid-upper abdominal pain. She reports the pain started on Saturday, 2 days ago. Patient reports she has had similar symptoms in the past, had an upper GI study 4 years ago, and was diagnosed with an ulcer.She denies any diarrhea, urinary symptoms, or vomiting. Patient does endorse nausea. She denies any other pertinent medical history. GENERAL: Well-appearing, well-nourished, and in mild distress d/t pain. HEAD: Normocephalic, atraumatic. CHEST: Clear to auscultation. ?No respiratory distress. HEART: irregular rate NEURO: ?Alert and oriented x3. GI/: no tenderness with palpation, + BS Patient screened in triage and initial orders placed.? ?Additional care and disposition to be based upon?diagnostic testing and treatment. <Domi Salvador PA-C - Last Filed: 05/26/25 23:24> Source: patient <Domi Salvador PA-C - Last Filed: 05/26/25 23:24> Mode of arrival: ambulatory <Domi Salvador PA-C - Last Filed: 05/26/25 23:24> Limitations: no limitations <Domi Salvador PA-C - Last Filed: 05/26/25 23:24> History of Present Illness HPI narrative: Agree with above HPI. Reports decreased appetite over the past 2 days. <DUANE Vila Last Filed: 05/26/25 23:24> Related Data Home Medications: Home Medications ?Medication ?Instructions ?Recorded ?Confirmed ?Last Taken ?Type cholecalciferol (vitamin D3) 50 50 mcg PO DAILY 01/15/20 04/19/25 Unknown History mcg (2,000 unit) capsule omega 2-jqf-dzj-fish oil 1,000 mg 1 cap PO DAILY 01/15/20 04/19/25 Unknown History (120 mg-180 mg) capsule (Fish Oil) hydroxyurea 500 mg capsule 500 mg PO BID 02/07/22 04/19/25 Unknown History gabapentin 300 mg capsule mg PO DAILY 12/23/23 04/19/25 Unknown History <Ankita Greene APRN - Last Filed: 05/26/25 12:50> Allergies/Adverse Reactions: Allergies Allergy/AdvReac Type Severity Reaction Status Date / Time amitriptyline Allergy Mild Hallucinati Verified 05/26/25 12:40 ons Penicillins Allergy Unknown Hives / Verified 05/26/25 12:40 Red Face,Itching aspirin AdvReac GI bleed Verified 05/26/25 12:40 <Ankita Greene, ZAKI - Last Filed: 05/26/25 12:50> Review of Systems Review of Systems: All systems reviewed & are unremarkable except as noted in HPI. <Domi Salvador PA-C - Last Filed: 05/26/25 23:24> All systems reviewed & are unremarkable except as noted in HPI and below <DUANE Vila Last Filed: 05/26/25 23:24> [facility] Past Medical History Medical History: Medical History DDD (degenerative disc disease) Epistaxis Anxiety Sleepwalking Family history of colon cancer in father Hypertension PAT (paroxysmal atrial tachycardia) Vegetarian diet Carotid bruit Gastric ulcer Thrombocytosis (~02/2020) GI bleed (~02/2020) Cyst of right ovary (~02/2020) Anxiety disorder, unspecified Chronic obstructive pulmonary disease Neuropathy CHATA (obstructive sleep apnea) Primary osteoarthritis of right knee Recurrent major depression in remission Tobacco abuse <Ankita Greeen, RECORD PRESSMAN - Last Filed: 05/26/25 12:50> Surgical History Surgical History: Surgical History History of left knee replacement H/O tubal ligation History of total right knee replacement History of right knee surgery retrograde femoral nail for supracondylar femur fracture <Ankita Greene, RECORD PRESSMAN - Last Filed: 05/26/25 12:50> Family History Family History: Family History Father Carcinoma of colon Diabetes mellitus Hypertension Malignant neoplasm of prostate Family history of alcohol abuse Depression Heart disease Mother Hypertension Family history of chronic obstructive pulmonary disease Family history of congestive heart failure Carcinoma of colon Depression Other Family history of arthritis Family history of malignant neoplasm <Ankita Greene, RECORD PRESSMAN - Last Filed: 05/26/25 12:50> Social History Social History: Social History Smoking status: Former smoker Tobacco type: cigarettes Smoking end date: 10/14/16 Alcohol intake: current Alcohol use details: 1 beer occasionally Substance use type: does not use Lack of Transportation: No Lack of Food: Sometimes True Current Housing: I Have Housing Concerned About Future Housing: No Difficulty Paying for Meds: No Currently Unemployed: No Education: High School Diploma/GED Difficulty w/ Childcare or Family Care: No Living arrangements: alone Occupation/Education: other Gender identity (if verbalized by the patient): Female Spiritual care concerns: No <Ankita Greene, RECORD PRESSMAN - Last Filed: 05/26/25 12:50> Exam Narrative: GENERAL: Elderly but well appearing, well-nourished, non-toxic, in no acute distress. HEAD: Normocephalic, atraumatic. RESPIRATORY: Airway patent, respirations nonlabored. Clear to auscultation bilaterally, no rales, rhonchi, wheezing. CARDIOVASCULAR: Regular rate and rhythm without murmurs, rubs, or gallops. ABDOMINAL: Soft, mild tenderness to palpation in epigastric region, RUQ, no rebound, nondistended. Normoactive BS. MUSCULOSKELETAL: Moves all extremities. No gross deformities. SKIN: Warm, dry, normal color. NEURO: A&O X3. Speech clear. No ataxic movements. PSYCHIATRIC: Appropriate mood and affect. Normal interaction. <Domi Salvador PA-C - Last Filed: 05/26/25 23:24> Course Vital Signs Vital signs: Vital Signs Temperature 98.2 F 05/26/25 12:40 Pulse Rate 70 05/26/25 12:40 Respiratory Rate 16 05/26/25 12:40 Blood Pressure 132/96 H 05/26/25 12:40 Pulse Oximetry 97 05/26/25 12:40 Oxygen Delivery Room Air 05/26/25 12:40 Temperature 98.2 F 05/26/25 12:40 Pulse Rate 98 05/26/25 20:16 Respiratory Rate 16 05/26/25 20:16 Blood Pressure 154/97 H 05/26/25 20:16 Pulse Oximetry 98 05/26/25 20:16 Oxygen Delivery Room Air 05/26/25 12:40 <Ankita Greene, RECORD PRESSMAN - Last Filed: 05/26/25 12:50> Vital Signs Temperature 98.2 F 05/26/25 12:40 Pulse Rate 70 05/26/25 12:40 Respiratory Rate 16 05/26/25 12:40 Blood Pressure 132/96 H 05/26/25 12:40 Pulse Oximetry 97 05/26/25 12:40 Oxygen Delivery Room Air 05/26/25 12:40 Temperature 98.2 F 05/26/25 12:40 Pulse Rate 98 05/26/25 20:16 Respiratory Rate 16 05/26/25 20:16 Blood Pressure 154/97 H 05/26/25 20:16 Pulse Oximetry 98 05/26/25 20:16 Oxygen Delivery Room Air 05/26/25 12:40 <Domi Salvador PA-C - Last Filed: 05/26/25 23:24> MDM - Abdominal Pain MDM Narrative Medical decision making narrative: Patient presented to ED with several day history of decreased appetite, nausea, upper abdominal pain. Vital signs stable upon arrival. Patient mildly hypertensive here, but does have history of this. In no acute distress. Laboratory studies without leukocytosis or anemia. Does show chronic thrombocytosis. CMP is unremarkable. Minimal elevation of AST, but normal bilirubin, ALT, alk-phos, lipase. EKG with sinus rhythm, significant concerning ST changes. Troponin is undetectable. UA with 4+ ketones, trace amount of RBC. No signs of infection. Patient given fluids in the ED. CT scan of abdomen/pelvis was obtained and showing evidence of gastritis, esophagitis, duodenitis. Consistent with clinical picture. Patient given morphine, Pepcid, Zofran, GI cocktail. On re-evaluation, she is feeling improved. Feel patient is safe for discharge home at this time. Will be started on PPI. She does not currently take anything for acid reflux. Discussed further lifestyle/ dietary modifications. Will refer to GI for further evaluation. Patient given strict return precautions. She is in agreement with plan, feels comfortable going home. Discharged in stable condition. <Domi Salvador PA-C - Last Filed: 05/26/25 23:24> Medical Records Attestation: I reviewed the patient's medical records. <Domi Salvador PA-C - Last Filed: 05/26/25 23:24> Lab Data Attestation: I reviewed the patient's lab results. <Domi Salvador PA-C - Last Filed: 05/26/25 23:24> Result diagrams: 05/26/25 13:04 05/26/25 13:04 <Ankita Greene APRN - Last Filed: 05/26/25 12:50> Labs: Lab Results 05/26/25 05/26/25 Range/Units 13:04 17:02 WBC 7.8 (4.5-10.0) K/mm3 RBC 3.64 L (4.2-5.4) M/mm3 Hgb 14.4 (12.0-15.0) g/dL Hct 41.7 (37.0-47.0) % MCV 114.6 H (80-100) fl MCH 39.6 H (26-34) pg MCHC 34.5 (32-36) g/dl RDW 17.2 H (11.5-14.5) % Plt Count 729 H (150-375) k/mm3 MPV 10.6 H (7.4-10.4) fl Immature Gran % (Auto) 1.9 H (0-0.5) % Neut % (Auto) 71.2 (45.5-73.1) % Lymph % (Auto) 16.0 L (18.3-44.2) % [place] % (Auto) 8.2 (2.6-8.5) % Eos % (Auto) 1.0 (0-4.4) % Baso % (Auto) 1.7 H (0.2-1.2) % Lymph # (Auto) 1.25 (0.9-3.2) K/mm3 [place] # (Auto) 0.6 (0.1-0.6) K/mm3 Eos # (Auto) 0.1 (0-0.3) K/mm3 Baso # (Auto) 0.1 (0.0-0.1) K/mm3 Abs Immat Gran (auto) 0.15 H (0.00-0.031) K/mm3 Absolute Neuts (auto) 5.6 (1.3-6.7) K/mm3 Absolute Nucleated RBC 0.040 H (0.0-0.012) K/mm3 Band Neutrophils % 0 (0-6) % Nucleated RBC % 0.5 H (0.0-0.2) % Platelet Estimate Increased (Adequate) Anisocytosis 3+ Microcytosis 1+ (NORMAL) Macrocytosis 2+ (NORMAL) Schistocytes None seen Sodium 133 L (137-145) mmol/L Potassium 3.5 (3.4-5.0) mmol/L Chloride 97 L (98-107) mmol/L Carbon Dioxide 28 (22-30) mmol/L Anion Gap 8 (4-12) mmol/L BUN 10 (7-17) mg/dL Creatinine 0.73 (0.7-1.0) mg/dL Estim Creat Clear Calc 57 ml/min Estimated GFR > 60 (59 - ) Glucose 101 (65-110) mg/dL Calcium 9.6 (8.4-10.2) mg/dL Total Bilirubin 0.5 (0.2-1.3) mg/dL AST 66 H (14-36) U/L ALT 18 (6-35) U/L Alkaline Phosphatase 85 (38-126) U/L Troponin I < 0.012 (0.000-0.034) ng/mL Total Protein 7.8 (6.3-8.2) g/dL Albumin 4.5 (3.5-5.1) g/dL Lipase 68 (23-300) U/L Urine Color Yellow (Yellow) Urine Appearance Clear (Clear) Urine pH 6.0 (5.0-9.0) Ur Specific [place] 1.025 (1.001-1.035) Urine Protein 1+ H (Negative) mg/dL Urine Glucose (UA) Negative (Negative) mg/dL Urine Ketones 4+ H (Negative) mg/dL Ur Blood (Man) Negative (Negative) Urine Nitrate Negative (Negative) Urine Bilirubin Negative (Negative) Urine Urobilinogen 1.0 (<2.0) mg/dL Add Ur Microanalysis Reviewed Leukocyte Esterase Rfl 1+ H (Negative) ASTER/UL Urine RBC 3-5 H (0-2) /hpf Urine WBC 0-5 (0-3) /hpf Ur Squamous Epith Cells Few (Few) /hpf Urine Bacteria None seen /hpf Urine Casts 3-5 <Ankita Greene, RECORD PRESSMAN - Last Filed: 05/26/25 12:50> Lab Results 05/26/25 05/26/25 Range/Units 13:04 17:02 WBC 7.8 (4.5-10.0) K/mm3 RBC 3.64 L (4.2-5.4) M/mm3 Hgb 14.4 (12.0-15.0) g/dL Hct 41.7 (37.0-47.0) % MCV 114.6 H (80-100) fl MCH 39.6 H (26-34) pg MCHC 34.5 (32-36) g/dl RDW 17.2 H (11.5-14.5) % Plt Count 729 H (150-375) k/mm3 MPV 10.6 H (7.4-10.4) fl Immature Gran % (Auto) 1.9 H (0-0.5) % Neut % (Auto) 71.2 (45.5-73.1) % Lymph % (Auto) 16.0 L (18.3-44.2) % [place] % (Auto) 8.2 (2.6-8.5) % Eos % (Auto) 1.0 (0-4.4) % Baso % (Auto) 1.7 H (0.2-1.2) % Lymph # (Auto) 1.25 (0.9-3.2) K/mm3 [place] # (Auto) 0.6 (0.1-0.6) K/mm3 Eos # (Auto) 0.1 (0-0.3) K/mm3 Baso # (Auto) 0.1 (0.0-0.1) K/mm3 Abs Immat Gran (auto) 0.15 H (0.00-0.031) K/mm3 Absolute Neuts (auto) 5.6 (1.3-6.7) K/mm3 Absolute Nucleated RBC 0.040 H (0.0-0.012) K/mm3 Band Neutrophils % 0 (0-6) % Nucleated RBC % 0.5 H (0.0-0.2) % Platelet Estimate Increased (Adequate) Anisocytosis 3+ Microcytosis 1+ (NORMAL) Macrocytosis 2+ (NORMAL) Schistocytes None seen Sodium 133 L (137-145) mmol/L Potassium 3.5 (3.4-5.0) mmol/L Chloride 97 L (98-107) mmol/L Carbon Dioxide 28 (22-30) mmol/L Anion Gap 8 (4-12) mmol/L BUN 10 (7-17) mg/dL Creatinine 0.73 (0.7-1.0) mg/dL Estim Creat Clear Calc 57 ml/min Estimated GFR > 60 (59 - ) Glucose 101 (65-110) mg/dL Calcium 9.6 (8.4-10.2) mg/dL Total Bilirubin 0.5 (0.2-1.3) mg/dL AST 66 H (14-36) U/L ALT 18 (6-35) U/L Alkaline Phosphatase 85 (38-126) U/L Troponin I < 0.012 (0.000-0.034) ng/mL Total Protein 7.8 (6.3-8.2) g/dL Albumin 4.5 (3.5-5.1) g/dL Lipase 68 (23-300) U/L Urine Color Yellow (Yellow) Urine Appearance Clear (Clear) Urine pH 6.0 (5.0-9.0) Ur Specific [place] 1.025 (1.001-1.035) Urine Protein 1+ H (Negative) mg/dL Urine Glucose (UA) Negative (Negative) mg/dL Urine Ketones 4+ H (Negative) mg/dL Ur Blood (Man) Negative (Negative) Urine Nitrate Negative (Negative) Urine Bilirubin Negative (Negative) Urine Urobilinogen 1.0 (<2.0) mg/dL Add Ur Microanalysis Reviewed Leukocyte Esterase Rfl 1+ H (Negative) ASTER/UL Urine RBC 3-5 H (0-2) /hpf Urine WBC 0-5 (0-3) /hpf Ur Squamous Epith Cells Few (Few) /hpf Urine Bacteria None seen /hpf Urine Casts 3-5 <Domi Salvador PA-C - Last Filed: 05/26/25 23:24> Imaging Data Attestation: I personally reviewed and interpreted this imaging study as follows: <Domi Salvador PA-C - Last Filed: 05/26/25 23:24> Radiologist's impression: ITS Impressions Abdomen/Pelvis CT 05/26/25 18:26 IMPRESSION: Mild esophagitis/gastritis. Duodenitis. <Ankita Greene, ZAKI - Last Filed: 05/26/25 12:50> ITS Impressions Abdomen/Pelvis CT 05/26/25 18:26 IMPRESSION: Mild esophagitis/gastritis. Duodenitis. <DUANE Vila Last Filed: 05/26/25 23:24> ECG Data EKG #1: Attestation: I personally reviewed and interpreted this ECG as follows: <DUANE Vila Last Filed: 05/26/25 23:24> ECG completion date: 05/26/25 <Domi Salvador PA-C - Last Filed: 05/26/25 23:24> ECG completion time: 12:58 <Domi Salvador PA-C - Last Filed: 05/26/25 23:24> normal rate (98), sinus rhythm and no ST changes <Domi Salvador PA-C - Last Filed: 05/26/25 23:24> Discharge Plan Discharge Clinical Impression: Gastritis and duodenitis, Nausea <Ankita Greene APRN - Last Filed: 05/26/25 12:50> Patient Disposition: Home <Ankita Greene APRN - Last Filed: 05/26/25 12:50> Condition: Stable <Ankita Greene APRN - Last Filed: 05/26/25 12:50> Instructions: Antibiotic Form, Gastritis (ED), Diet for Stomach Ulcers and Gastritis (ED), Duodenitis (ED) <Ankita Greene APRN - Last Filed: 05/26/25 12:50> Additional Instructions: Take Protonix daily as prescribed for acid reflux suppression. Avoid foods that are very greasy, spicy, fatty, acidic. Limit alcohol use. Avoid NSAIDs (ibuprofen, aspirin, naproxen, Aleve). Utilize zofran as needed for further nausea. Increase fluid intake. Recommend electrolyte rich fluids, gatorade, pedialyte, body armour. Recommend clear liquids or bland diet until symptoms improve, such as bananas, rice, applesauce, toast, or crackers. Follow up with your primary care doctor and/or GI for further evaluation. Return to the ED if you experience worsening or severe symptoms, unable to keep down food or drink, severe pain, fevers, rectal bleeding, vomiting blood, or any other symptoms of concern. <Ankita Greene APRN - Last Filed: 05/26/25 12:50> Patient Language: Hebrew <Ankita Greene APRN - Last Filed: 05/26/25 12:50> Prescriptions: New pantoprazole [Protonix] 40 mg tablet,delayed release (DR/EC) 40 mg PO HS 28 Days Qty: 28 0RF ondansetron 4 mg tablet,disintegrating 4 mg PO Q8H PRN (Reason: nausea and vomiting) Qty: 15 0RF No Action cholecalciferol (vitamin D3) 50 mcg (2,000 unit) capsule 50 mcg PO DAILY omega 8-ldf-ubz-fish oil [Fish Oil] 1,000 mg (120 mg-180 mg) capsule 1 cap PO DAILY gabapentin 300 mg capsule PO DAILY naproxen 500 mg tablet 500 mg PO BID PRN (Reason: pain) Qty: 40 0RF hydroxyurea 500 mg capsule 500 mg PO BID fluticasone propionate 50 mcg/actuation spray,suspension 1 spray intranasal DAILY Qty: 16 2RF metoprolol succinate 25 mg tablet extended release 24 hr See Rx Instructions .ROUTE .COMPLEX Qty: 30 5RF Dose Instruction: TAKE 1/2 A TABLET BY MOUTH ONCE A DAY Rx Instructions: TAKE 1/2 A TABLET BY MOUTH ONCE A DAY triamcinolone acetonide 0.5 % ointment See Rx Instructions .ROUTE .COMPLEX Qty: 15 0RF Dose Instruction: APPLY TOPICALLY TO THE AFFECTED AREA DAILY Rx Instructions: APPLY TOPICALLY TO THE AFFECTED AREA DAILY albuterol sulfate 90 mcg/actuation HFA aerosol inhaler 1 inh inhalation Q4H PRN (Reason: shortness of breath or wheezing) Qty: 6.7 3RF prednisone 20 mg tablet 20 mg PO BID Qty: 10 0RF simvastatin 10 mg tablet 10 mg PO DAILY Qty: 90 0RF <Ankita Greene APRN - Last Filed: 05/26/25 12:50> Follow-up/Referrals: Ranjan Mcnamara MD [Primary Care Provider] - Baldomero Isidro MD [Physician] - (GI) <Ankita Greene APRN - Last Filed: 05/26/25 12:50> Time of Disposition: 21:00 <Ankita Greene APRN - Last Filed: 05/26/25 12:50> 21:00 <Domi Salvador PA-C - Last Filed: 05/26/25 23:24>
--- OUTSIDE RECORDS SUMMARY | 2025-05-26 13:06 | XMS_ITS | Encounter Summary ---
Author Organization [facility] Healthcare Address [address] [place] [address] Care Team Providers Care Master Deputy Sheriff Court Security Name Role Phone Charan Khan MD, Layo Unavailable [phone] Ronny Mcnamara MD Primary Care Provider Renea Kemp USER EXPERIENCE DEVELOPER Unavailable [phone] Ronal Jay USER EXPERIENCE DEVELOPER Unavailable [phone] Encounter Details Date Type Department Care Team (Late st Contact Info) Description 05/05/2021 Telephone [facility] [address] [place] [address] Vielka Issa, RT Social History Tobacco Use Types Packs/Day Years Used Date Smoking Tobacco: Former Cigarettes Q uit: 2018 Smokeless Tobacco: Never Alcohol Use Standard Drinks/Week Comments Yes 0 (1 standard drink = 0.6 oz pur e alcohol) Comments Unknown Sex and Gender Information Value Date Recorded Sex Assigned at Not on file 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 Gender Identity Not on file Sexual Orientation Not on file documented as of this encounter Plan of Treatment Not on file documented as of this encounter Visit Diagnoses Not on filedocumented in this encounter Care Teams Master Deputy Sheriff Court Security Relationship Specialty Start Date End Date Ronny Mcnamara MD PCP - General Family Practice 02/07/21 Layo Farrar Jr., MD Medical Oncologist/Curve Cleaner Medical Oncology 04/11/20 11/12/22 Renea Kemp NP [address] [place] [id number] Nurse Practitioner Medical Oncology 11/13/22 07/16/24 Ronal Jay NP [address] [address] Nurse Practitioner Orthopedic Surgery 01/16/24 documented as of this encounter
--- OUTSIDE RECORDS SUMMARY | 2025-05-26 13:06 | XMS_ITS | Clinical Summary ---
Author Organization [facility] Address [address] [place] [address] Care Team Providers Care Sales And Marketing Coordinator Name Role Phone Ronny Mcnamara MD Primary Care Provider Ronal Jay NP Unavailable [phone] Allergies Active Allergy Reactions Criticality Noted Date Comments Aspirin Other (See comments) Low 11/08/2020 Pt can't have anything with aspirin Codeine Itching Low 10/31/2018 Nsaids (Non-Steroidal Anti-Inflammatory Drug) Unknown 10/11/2020 Hx of bleeding ulcer Penicillins Itching,Rash Medium 06/25/2015 Medications pravastatin (PRAVACHOL) 20 mg tabletIndicati ons:hyperlipid emia Take 1 tablet (20 mg total) by mouth every morning 10/16/19 19 Active kzyos-0-xcr-ep a-dpa-fish oil 1,050-1,200 mg capsuleIndicat ions:supplemen t [...] Hereditary and idiopathic neuropathy, unspecifie d 01/04/2017 intermediate (current) use of aspirin 01/04/2017 Tobacco use [...] gynecological exam ination 03/22/2014 Visit for routine occupational nurse exam 03/22/2014 TIA (transient ischemic attack) 10/19/2013 Lumbar radiculopathy 10/19/2013 Cervical dysplasia 04/08/2013 Leg muscle spasm 12/15/2012 Restless leg syndrome 12/05/2012 Tinnitus of both ears 10/13/2012 Leg swelling 05/17/2012 Encounters Date Type Department Care Team Description 04/23/2025 10:20 AM CDT Office Visit [facility] Orthopaedic Surgery [facility] Medicine [address] [place] [address] [place] [address] Jack Ambrosio MD Bilateral shoulder pain, unspecified [...] into airway 2014 during [facility] Sleep apnea Pt denies h/o OS [...] on file 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 Gender Identity Not on file Sexual Orientation [...] 01/11/2026 01/11/2025 Medical Devices Implanted Type Area Model Set Artist Device Identifier Shelf Expiration Date Model / Serial / Lot [employer] Attune Fb Tib Base Sz 6 Por [id number] - [id number] Implanted:Qty: 1 on 01/14/2024 by Bladimir Rey MD at [facility] Left: Knee [employer] 11/13/2033 [id number] / / [id number] [employer] Insert Tibial Knee Fixed Lm Posterior Stabilized Attune 5mm Size 5 Polyethylene [id number] - [id number] Implanted:Qty: 1 on 01/14/2024 by Bladimir Rey MD at [facility] Left: Knee [employer] 04/12/2031 [id number] / / [id number] [employer] Attune Cruciate Retain Cementless Knee Left 5 Component Femoral [id number] - [id number] Implanted:Qty: 1 on 01/14/2024 by Bladimir Rey MD at [facility] Left: Knee [employer] 03/13/2033 [id number] / / [id number] Procedures Procedure Name Priority Date/Time Associated Diagnosis Comments PA ARTHROCENTESIS ASPIR&/INJ MAJOR JT/BURSA W/O US Routine 04/23/2025 10:20 AM CDT Bilateral shoulder pain, unspecified chronicity CBC MORPHOLOGY Routine 04/20/2025 11:04 AM CDT RETICULOCYTES Routine 04/20/2025 11:04 AM CDT Myeloproliferative disease (HCC) CBC WITH AUTO DIFFERENTIAL Routine 04/20/2025 11:04 AM CDT Myeloproliferative disease (HCC) from Last 3 Months Results * PA ARTHROCENTESIS ASPIR&/INJ MAJOR JT/BURSA W/O US (04/23/2025 [...] CDT 04/20/2025 11:05 AM CDT Ksenia Leung STEWARD/STEWARDESS DINING ROOM LAB BLOOD ORDERABLES Final Result [facility] [address] [place] [address] * (ABNORMAL) CBC with auto differential (04/20/2025 [...] 04/20/2025 11:05 AM CDT us Ksenia Leung STEWARD/STEWARDESS DINING ROOM LAB BLOOD ORDERABLES Final Result [facility] [address] [id number] * Reticulocyte Count (04/20/2025 11:04 AM CDT) Reticulocyte count, automated 1.5 % [facility] Reticulocyte, absolute 39,750 20,000 - 80,000 cells/uL [facility] Blood 04/20/2025 11:0 4 AM CDT 04/20/2025 11:05 AM CDT Ksenia Leung STEWARD/STEWARDESS DINING ROOM LAB BLOOD ORDERABLES Final Result [facility] [address] [place] [id number] from Last 3 Months Insurance [employer] [place] [id number] MEDICARE ADVANTAGE [employer] Advance Directives For more information, please contact: [phone] * Full Code (Latest Code Status on File) Date Activated Date Inactivated Comments 01/14/2024 5:17 PM 01/16/2024 5:41 PM Care Teams Sales And Marketing Coordinator Relationship Specialty Start Date End Date Ronny Mcnamara MD PCP - General Family Practice 02/07/21 Ronal Jay NP [address] [place] [address] DR GATES [address] [place] [id number] Nurse Practitioner Orthopedic Surgery 01/16/24
--- OUTSIDE RECORDS SUMMARY | 2025-05-26 13:06 | XMS_ITS | Encounter Summary ---
Author Organization [facility] Healthcare Address [address] [place] [address] Care Team Providers Care Physicist Cryogenics Name Role Phone Charan Khan MD, Layo Unavailable [phone] Ronny Mcnamara MD Primary Care Provider Renea Kemp BAND TOP MAKER Unavailable [phone] Ronal Jay BAND TOP MAKER Unavailable [phone] Encounter Details Date Type Department Care Team (Late st Contact Info) Description 08/11/2021 Telephone [facility] [address] [place] [address] Therese Simmons, RT Social History Tobacco Use Types Packs/Day Years Used Date Smoking Tobacco: Former Cigarettes Q uit: 2018 Smokeless Tobacco: Never Alcohol Use Standard Drinks/Week Comments Yes 0 (1 standard drink = 0.6 oz pur e alcohol) Comments Unknown Sex and Gender Information Value Date Recorded Sex Assigned at Not on file 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 Gender Identity Not on file Sexual Orientation Not on file documented as of this encounter Plan of Treatment Not on file documented as of this encounter Visit Diagnoses Not on filedocumented in this encounter Care Teams Physicist Cryogenics Relationship Specialty Start Date End Date Ronny Mcnamara MD PCP - General Family Practice 02/07/21 Layo Farrar Jr., MD Medical Oncologist/Fruit Thinner Machine Operator Medical Oncology 04/11/20 11/12/22 Renea Kemp NP [address] [place] [id number] Nurse Practitioner Medical Oncology 11/13/22 07/16/24 Ronal Jay NP [address] [address] Nurse Practitioner Orthopedic Surgery 01/16/24 documented as of this encounter
--- OUTSIDE RECORDS SUMMARY | 2025-05-26 13:07 | XMS_ITS | Encounter Summary ---
Author Organization [facility] Address [facility] [place] [address] Care Team Providers Care Livestock Caretaker Name Role Phone None, Provider Primary Care Provider Bladimir Bustamante MD Unavailable [phone] Encounter Details Date Type Department Care Team (Late st Contact Info) Description 05/02/2020 Prep for Procedure [facility] [place] [address] Bladimir Gonzalez MD [address] [id number] Social History Tobacco Use Types Packs/Day Years [...] DETECTED NOT DETECTED 05/02/2020 1:46 PM CDT [facility] CORONAVIRUS 229E PCR (RESP) NOT DETECTED NOT DETECTED 05/02/2020 1:46 PM CDT [facility] CORONAVIRUS HKU1 PCR (RESP) NOT DETECTED NOT DETECTED 05/02/2020 1:46 PM CDT [facility] CORONAVIRUS NL63 PCR (RESP) NOT DETECTED NOT DETECTED 05/02/2020 1:46 PM CDT [facility] CORONAVIRUS OC43 PCR (RESP) NOT DETECTED NOT DETECTED 05/02/2020 1:46 PM CDT [facility] METAPNEUMOVIRUS PCR (RESP) NOT DETECTED NOT DETECTED 05/02/2020 1:46 PM CDT [facility] RHINOVIRUS/ENTEROV IRUS PCR (RESP) NOT DETECTED NOT DETECTED 05/02/2020 1:46 PM CDT [facility] INFLUENZA A PCR (RESP) NOT DETECTED NOT DETECTED 05/02/2020 1:46 PM CDT [facility] INFLUENZA B PCR (RESP) NOT DETECTED NOT DETECTED 05/02/2020 1:46 PM CDT [facility] PARAINFLUENZA 1 PCR (RESP) NOT DETECTED NOT DETECTED 05/02/2020 1:46 PM CDT [facility] PARAINFLUENZA 2 PCR (RESP) NOT DETECTED NOT DETECTED 05/02/2020 1:46 PM CDT [facility] PARAINFLUENZA 3 PCR (RESP) NOT DETECTED NOT DETECTED 05/02/2020 1:46 PM CDT [facility] PARAINFLUENZA 4 PCR (RESP) NOT DETECTED NOT DETECTED 05/02/2020 1:46 PM CDT [facility] RSV PCR (RESP) NOT DETECTED NOT DETECTED 05/02/2020 1:46 PM CDT [facility] B PARAPERTUSIS PCR (RESP) NOT DETECTED NOT DETECTED 05/02/2020 1:46 PM CDT [facility] BORDETELLA PERTUSSIS PCR (RESP) NOT DETECTED NOT DETECTED 05/02/2020 1:46 PM CDT [facility] CHLAMYDOPHILA PNEUMONIAE PCR (RESP) NOT DETECTED NOT DETECTED 05/02/2020 1:46 PM CDT [facility] MYCOPLASMA PNEUMONIAE PCR (RESP) NOT DETECTED NOT DETECTED 05/02/2020 1:46 PM CDT [facility] CORONAVIRUS SARS COV 2 PCR (RESP) NOT DETECTED NOT DETECTED 05/02/2020 1:46 PM CDT [facility] Comment: THE SARS-CoV-2 TEST HAS BEEN AUTHORIZED BY THE FDA UNDER AN EUA FOR USE BY AUTHORIZED LABORATORIES. NASOPHARYNGEAL STRUCTURE / Unknown 05/02/2020 10:12 AM CDT Bladimir Gonzalez MD MICROBIOLOGY - GENERAL BELJulisa ITALO Final Result [facility] [address] [place] [address], documented in this encounter Visit Diagnoses Diagnosis Gastric ulcer- Primary Gastric ulcer, unspecified as acute or chronic, without mention of hemorrhage, perforation, or obstruction documented in this encounter Additional Health Concerns Infection Onset Date Last Indicated Resolved Time COVID-19 Rule Out 05/02/2020 05/02/2020 05/02/2020 1:46 PM CDT documented as of this encounter Care Teams Livestock Caretaker Relationship Specialty Start Date End Date None, Provider, PCP - General 05/03/20 Bladimir Gonzalez MD [address] [facility] [address] [place] [address] GASTROENTEROLOGY 04/07/20 documented as of this encounter
--- OUTSIDE RECORDS SUMMARY | 2025-05-26 13:07 | XMS_ITS ---
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
--- OUTSIDE RECORDS SUMMARY | 2025-05-26 13:07 | XMS_ITS | Clinical Summary ---
Author Organization [facility] Address [address] [place] [id number] Phone Care Team Providers Care Coding Quality Analyst Name Role Phone Sita Ladd MD Primary [...] - 1-dose 75+ series) 2028 Care Teams Coding Quality Analyst Relationship Specialty Start Date End Date Sita Ladd MD PCP - General Family Practice 03/09/20
--- OUTSIDE RECORDS SUMMARY | 2025-05-26 13:07 | XMS_ITS ---
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
--- OUTSIDE RECORDS SUMMARY | 2025-05-26 13:07 | XMS_ITS | Clinical Summary ---
Author Organization [facility] Address [address] [place] [address] Care Team Providers Care U.[place]. Representative Name Role Phone None, Provider MD Primary Care Provider Bladimir Bustamante MD Unavailable [phone] Allergies Active Allergy Reactions Criticality Noted Date [...] this topic Medical Devices Implanted Type Area Pcb Design Engineer Device Identifier Shelf Expiration Date Model / [...] the left lateral decubitus position, the Olympus [id number] endoscope was used to easily intubate the [...] the left lateral decubitus position, the Olympus [id number] colonoscope was introduced into the rectum and [...] colonoscopy in 10 years Bladimir Gonzalez M.D. [phone] Bladimir Gonzalez MD GI PROCEDURE ORDERABLES Fin al Result from Last 3 Months or Most Recently Relevant to Health Maintenance Insurance [facility] Advance Directives * Full Code (Latest Code Status on File) Date Activated Date Inactivated Comments 02/21/2020 5:15 PM 02/26/2020 3:48 PM Care Teams U.S. Representative Relationship Specialty Start Date End Date None, Provider, PCP - General 05/03/20 Bladimir Gonzalez MD [address] [facility] [address] [place] [address] GASTROENTEROLOGY 04/07/20
--- OUTSIDE RECORDS SUMMARY | 2025-05-26 13:07 | XMS_ITS | Clinical Summary ---
Author Organization [facility] Address [address] [place] [address] Phone Care Team Providers Care Telegraph Lineman Name Role Phone Sita Ladd MD Primary Care Provider [phone] Allergies Active Allergy Reactions Criticality Noted Date [...] topic Insurance MEDICARE C [employer] Care Teams Telegraph Lineman Relationship Specialty Start Date End Date Sita Ladd MD [address] [place] [address] PCP - General Family Medicine 03/18/20
[2025-05-26 13:33] LABS: Alanine Aminotransferase 18 U/L (6-35); Albumin Level 4.5 g/dL (3.5-5.1); Alkaline Phosphatase 85 U/L (38-126); Anion Gap 8 mmol/L (4-12); Aspartate Amino Transferase 66 U/L (14-36); Bilirubin,Total 0.5 mg/dL (0.2-1.3); Blood Urea Nitrogen 10 mg/dL (7-17); Calcium 9.6 mg/dL (8.4-10.2); Carbon Dioxide 28 mmol/L (22-30); Chloride 97 mmol/L (98-107); Estimated CRCL calculation 57 ml/min; Estimated Glomerular Filt Rate > 60; Glucose 101 mg/dL (65-110); Lipase 68 U/L (23-300); Potassium 3.5 mmol/L (3.4-5.0); Sodium 133 mmol/L (137-145); Total Protein 7.8 g/dL (6.3-8.2)
[2025-05-26 14:00] LABS: Hematocrit 41.7 % (37.0-47.0); Hemoglobin 14.4 g/dL (12.0-15.0); Immature Granulocyte Percent A 1.9 % (0-0.5); Lymphocytes Absolute Auto 1.25 K/mm3 (0.9-3.2); Mean Corpuscular HGB Conc 34.5 g/dl (32-36); Mean Corpuscular Hemoglobin 39.6 pg (26-34); Mean Corpuscular Volume 114.6 fl (80-100); Nucleated Red Blood Cells Absolute Auto 0.040 K/mm3 (0.0-0.012); Nucleated Red Blood Cells Perc 0.5 % (0.0-0.2); Platelet Count Result 729 k/mm3 (150-375); Red Blood Count 3.64 M/mm3 (4.2-5.4); White Blood Count 7.8 K/mm3 (4.5-10.0)
[2025-05-26 14:29] LABS: Band Neutrophils Percent 0 % (0-6); Schistocytes None Seen
[2025-05-26 14:30] LABS: Anisocytosis 3+; Macrocytosis 2+ (NORMAL); Microcytosis 1+ (NORMAL)
--- NOTE | 2025-05-26 16:55 | PC.NURSE ---
Pt. able to ambulate to bathroom independently. Pt. attempting to provide urine sample.
[2025-05-26 17:19] LABS: Add Urine Microscopic? YES; Appearance Urine Clear (Clear); Glucose Urine UA Negative (Negative); Leukocyte Esterase Ur 1+ LEU/UL (Negative); Need Manual Microscopic Reviewed; Nitrate Urine Negative (Negative); Specific Grav Ur 1.025 (1.001-1.035)
[2025-05-26 17:30] LABS: Troponin I < 0.012 ng/mL (0.000-0.034)
[2025-05-26] MEDS: SODIUM CHLORIDE 0.9% IV 1,000 ML 999 ML IV CONT (17:48)
[2025-05-26] MEDS: FAMOTIDINE 20 MG/2 ML VIAL IV PUSH (17:50)
[2025-05-26] MEDS: ONDANSETRON INJ 4 MG/2 ML VIAL IV PUSH (17:50)
[2025-05-26] MEDS: MORPHINE SULFATE (*CRX) 2 MG/ML INJ IV PUSH (17:51)
[2025-05-26 18:30] VITALS: BP 183/98; PULSE 95; RESP 20; O2SAT 91
--- NOTE | 2025-05-26 19:57 | PC.NURSE ---
Pt. able to ambulate to bathroom independently with a steady gait.
[2025-05-26] MEDS: BELLADONNA ALK/PHENOB ELIX 10 ML, MAG HYDROX/ALUMINUM HYD/SIMETH 30 ML, LIDOCAINE 2% VI... PO (20:13)
[2025-05-26 20:16] VITALS: BP 154/97; PULSE 98; RESP 16; O2SAT 98
== END 2025-05-26 21:17 | disposition home or self-care (01) ==
PROVIDERS: Registered Nurse; Emergency Provider Physician Assistant; PCP Family Medicine
DX: K29.70 Gastritis, unspecified, without bleeding (principal); K29.80 Duodenitis without bleeding; I10 Essential (primary) hypertension; G47.33 Obstructive sleep apnea (adult) (pediatric); J44.9 Chronic obstructive pulmonary disease, unspecified; Z96.653 Presence of artificial knee joint, bilateral; F17.210 Nicotine dependence, cigarettes, uncomplicated
CPT/HCPCS: 36415; 74177; 80053; 81001; 83690; 84484; 85025; 87086; 93005; 96361; 96374; 96375; 99284; A9270; J2270; J2405; J7030; Q9967

== ENCOUNTER 2025-07-02 12:04 | Outpatient (CLI) | payer MEDICARE, SELFPAY ==
--- NOTE | ~2025-07-02 | XR_ITS ---
EXAMINATION: XR hand RT 2V, 07/02/2025 12:12 CDT HISTORY: Pain in right finger(s), thumb pain x 2 weeks, hit on door COMPARISON: No comparisons available. Findings: No acute fracture or malalignment. Moderate degenerative changes Soft tissues unremarkable. Impression: No acute fracture or malalignment. Reviewed, dictated and finalized at location A. Impression: No acute fracture or malalignment.
== END 2025-07-02 12:05 | disposition home or self-care (01) ==
LOC: GOSHIMG 12:07
PROVIDERS: PCP Nurse Practitioner Family; Visit Provider Nurse Practitioner Family
DX: M79.644 Pain in right finger(s) (principal); M65.311 Trigger thumb, right thumb
CPT/HCPCS: 73120

== ENCOUNTER 2025-08-10 00:44 | Day surgery (SDC) | payer MEDICARE, SELFPAY ==
[2025-07-30 12:43] VITALS: BMI 24.3
--- OUTSIDE RECORDS SUMMARY | 2025-08-10 00:46 | XMS_ITS | Clinical Summary ---
Author Organization [facility] Address [address] [place] [address] Phone Care Team Providers Care Goat Driver Name Role Phone Sita Ladd MD Primary Care Provider [phone] Allergies Active Allergy Reactions Criticality Noted Date [...] Weight 79.8 kg (175 lb 14.4 oz) 03/18/2020 9:23 AM CDT Height 167.6 cm (5' [...] topic Insurance MEDICARE C [employer] Care Teams Goat Driver Relationship Specialty Start Date End Date Sita Ladd MD [address] [place] [address] PCP - General Family Medicine 03/18/20
--- OUTSIDE RECORDS SUMMARY | 2025-08-10 00:46 | XMS_ITS | Clinical Summary ---
Author Organization [facility] Address [address] [place] [address] Care Team Providers Care Media Sales Executive Name Role Phone Unavailable Primary Care Provider Unavailabl e Source Comments [facility],non-owned Affiliates and Associated Physician Practices is amultiple site organization consisting of ambulatory clinics and hospital sitesin [place], [place], [place] and [place]. This disclosure is being madepursuant to the Care Everywhere program and may not contain all information available regarding this patient. Last updated 18.[facility] Immunizations Immunization Administration Dates Next Due FLU VACCINE QUAD IIV4 PF ID 07/17/2016 Social History Tobacco Use Types Packs/Day Years Used Date Smoking Tobacco: Never Assessed Comments Unknown Sex and Gender Information Value Date Recorded Sex Assigned at Not on file Legal Sex Female 9:28 AM CDT Gender Identity Not on file Sexual Orientation Not on file Plan of Treatment Health Maintenance Due Date Last Done Comments BONE DENSITY TESTING 1955 COLOGUARD (AGES 45-75) - COL ON CA SCREENING 1953 COLON MONITORING 1953 COLONOSCOPY - COLON CA SCREENING 1953 CT COLONOGRAPHY - COLON CA SCREENING 1953 Colorectal Cancer Screening 1955 FIT - COLON CA SCREENING 1953 FLEX SIG - COLON CA SCREENING 1953 LIPID TESTING 1953 MAMMOGRAM 1953 HEPATITIS C SCREENING 06/26/1971 DTAP/TDAP/TD VACCINES (1 - Tdap) 1972 PNEUMOCOCCAL VACCINE 50+ (1 of 1 - PCV) 2003 ZOSTER VACCINE (1 of 2) 2003 DEPRESSION SCREENING 10/14/2024 COVID-19 VACCINE (2023-2 5 season) 2025 INFLUENZA VACCINE (#1) 2025 07/17/2016 Respiratory Syncytial Virus (RSV) Vaccine Pt: or over 60 yrs (1 - 1-dose 75+ series) 2028 HEPATITIS B VACCINE Aged Out No longe r eligible based on patient's age to complete this topic HIB VACCINE Aged Out No longer eligi ble based on patient's age to complete this topic HPV VACCINE Aged Out No longer eligi ble based on patient's age to complete this topic MENINGOCOCCAL (Group B) VACC INE SHARED DECISION-MAKING Aged Out No longer eligibl e based on patient's age to complete this topic MENINGOCOCCAL GROUPS A/C/Y/W VACCINE Aged Out No longer eligible b ased on patient's age to complete this topic Insurance MEDICARE [facility] MANAGED MEDICARE ADV
--- OUTSIDE RECORDS SUMMARY | 2025-08-10 00:46 | XMS_ITS | Clinical Summary ---
Author Organization [facility] Address [address] [place] [address] Care Team Providers Care Supervisor Livestock Yard Name Role Phone Ronny Mcnamara MD Primary Care Provider Ronal Jay NP Unavailable [phone] Allergies Active Allergy Reactions Criticality Noted Date Comments Aspirin Other (See comments) Low 11/08/2020 Pt can't have anything with aspirin Codeine Itching Low 10/31/2018 Nsaids (Non-Steroidal Anti-Inflammatory Drug) Unknown 10/11/2020 Hx of bleeding ulcer Penicillins Itching,Rash Medium 06/25/2015 Medications pravastatin (PRAVACHOL) 20 mg tabletIndications: hyperlipidemia Take 1 tablet (20 mg total) by mouth every morning 10/16/19 19 Active [id number]-dp a-fish oil 1,050-1,200 mg capsuleIndications :supplement Take 1 capsule by mouth every morning Active metoprolol XL (TOPROL-XL) 25 mg extended release tabletIndications: hypertension Take 2 tablets (50 mg total) by mouth every morning 2 tablets Active albuterol HFA (PROVENTIL HFA,VENTOLIN HFA,PROAIR HFA) 90 mcg/actuation inhalerIndications :allergies Inhale 2 puffs as needed for shortness of breath 09/21/20 22 Active cholecalciferol (VITAMIN D-3) 2000 unit capsuleIndications :supplement Take 1 capsule (2,000 Units total) by mouth every morning Active acetaminophen (TYLENOL EXTRA STRENGTH ORAL)Indications:s upplement Take 2 tablets by mouth as needed Active triamcinolone (KENALOG) 0.5 % ointmentIndication s:skin rash Apply topically as needed for irritation or rash 08/17/20 24 Active sertraline (ZOLOFT) 50 mg tabletIndications: Anxiety with Depression Take 1 tablet (50 mg total) by mouth every morning 11/02/19 25 Active gabapentin (NEURONTIN) 300 mg capsuleIndications :Lumbar radiculitis,Bilate ral hand numbness TAKE 1 CAPSULE(300 MG) BY MOUTH THREE TIMES DAILY 90 capsule 2 02/27/20 25 Active traMADoL (ULTRAM) 50 mg tabletIndications: Lumbar radiculitis Take 1 tablet (50 mg total) by mouth every 6 (six) hours as needed for pain for pain 120 tablet 1 07/15/20 25 Active hydroxyurea (HYDREA) 500 mg capsuleIndications :Myeloproliferativ e disease (HCC) Take 2 pills M-Th and 1 pill Fri-Sun 145 capsule 3 07/16/[address] (PROTONIX) 40 mg EC tablet TAKE 1 TABLET BY MOUTH AT BEDTIME FOR 4 WEEKS 05/28/20 25 Active ondansetron ODT (ZOFRAN-ODT) 4 mg disintegrating tablet DISSOLVE 1 TABLET ON THE TONGUE EVERY 8 HOURS NEEDED FOR NAUSEA OR VOMITING 05/27/20 25 Active hydroxyurea (HYDREA) 500 mg capsuleIndications :Myeloproliferativ e disease (HCC) Take 2 pills M-Th and 1 pill Fri-Sun 145 capsule 3 07/13/20 24 025 Discontin ued(Reord er) traMADoL (ULTRAM) 50 mg tabletIndications: Lumbar radiculitis Take 1 tablet (50 mg total) by mouth every 6 (six) hours as needed for pain for pain 120 tablet 1 06/15/20 25 025 Discontin ued(Reord er) Hospital, Clinic, or Other Facility Administered Medication Ordered Dose Route Frequency Start Date End Date Status lidocaine (XYLOCAINE) 10 mg/mL (1 %) injection 4 mLIndications:Admi nistration of Local Anesthesia 4 mL One-Time Injection 07/23/2025 07/23/2025 Ended lidocaine (XYLOCAINE) 10 mg/mL (1 %) injection 4 mLIndications:Admi nistration of Local Anesthesia 4 mL One-Time Injection 07/23/2025 07/23/2025 Ended triamcinolone (KENALOG) 40 mg/mL injection 40 mgIndications:Bila teral shoulder pain, unspecified chronicity 40 mg intra-artic One-Time Injection 07/23/2025 07/23/2025 Ended triamcinolone (KENALOG) 40 mg/mL injection 40 mgIndications:Bila teral shoulder pain, unspecified chronicity 40 mg intra-artic One-Time Injection 07/23/2025 07/23/2025 Ended Active Problems Problem Noted Date Diagnosed Date [...] Hereditary and idiopathic neuropathy, unspecifie d 01/04/2017 nursing home (current) use of aspirin 01/04/2017 Tobacco use [...] gynecological exam ination 03/22/2014 Visit for routine obgyn nurse exam 03/22/2014 TIA (transient ischemic attack) 10/19/2013 Lumbar radiculopathy 10/19/2013 Cervical dysplasia 04/08/2013 Leg muscle spasm 12/15/2012 Restless leg syndrome 12/05/2012 Tinnitus of both ears 10/13/2012 Leg swelling 05/17/2012 Encounters Date Type Department Care Team Description 07/23/2025 10:20 AM CDT Office Visit [facility] [address] [facility] 6th [place] [address] [place] [address] Jack Ambrosio MD Bilateral shoulder pain, unspecified chronicity (Primary Dx) 07/23/2025 Telephone [facility] [address] [place] [address] [place] [address] Jack Ambrosio MD 07/21/2025 11:30 AM CDT Office Visit [facility] Hematology [address] [place] [address] [address] [place] [address] Kenyetta Norman, GRUPO Myeloproliferative disease (HCC) (Primary Dx); Essential thrombocytosis; Malignant neoplasm of upper-outer quadrant of left breast in female, estrogen receptor positive (HCC) 07/21/2025 11:00 AM CDT Lab [facility] at [address] [address] Myeloproliferative disease (HCC) 07/16/2025 Telephone [facility] [address] [facility] Floor [address] [place] [address] Brenda Chawla RN from Last 3 Months Immunizations Immunization Administration [...] History of TIAs 2012 h/o TIA after hu gemma 2012-- Experience transient expressive aphasia X ~48 hours Aspiration into airway 2014 during [facility] Sleep apnea Pt denies h/o OS [...] on file Legal Sex Female 11:36 AM 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 Gender Identity Not on file Sexual Orientation Not on file Obstetrics History Last Filed Vital Signs Vital Sign Reading Time Taken Comments Blood Pressure 149/89 07/21/2025 11:36 AM CDT Pulse 84 07/21/2025 11:36 AM CDT Temperature 36.6 C (97.9 F) 07/21/2025 11:36 AM CDT Respiratory Rate 18 07/21/2025 11:36 AM CDT Oxygen Saturation 95% 07/21/2025 11:36 AM CDT Inhaled Oxygen Concentration - - Weight 67.3 kg (148 lb 5.9 oz) 07/21/2025 11:36 AM CDT Height 162.6 cm (5' 4) 01/20/2025 10:40 AM CDT Body Mass Index 25.47 01/20/2025 10:40 AM CDT Plan of Treatment [...] 01/11/2026 01/11/2025 Medical Devices Implanted Type Area Fiberglass Boat Finisher Device Identifier Shelf Expiration Date Model / Serial / Lot [employer] Attune Fb Tib Base Sz 6 Por [id number] - [id number] Implanted:Qty: 1 on 01/14/2024 by Bladimir Rey MD at [facility] Left: Knee [employer] 11/13/2033 [id number] / / [id number] [employer] Insert Tibial Knee Fixed Lm Posterior Stabilized Attune 5mm Size 5 Polyethylene [id number] - [id number] Implanted:Qty: 1 on 01/14/2024 by Bladimir Rey MD at [facility] Left: Knee [employer] 04/12/2031 [id number] / / [id number] [employer] Attune Cruciate Retain Cementless Knee Left 5 Component Femoral [id number] - [id number] Implanted:Qty: 1 on 01/14/2024 by Bladimir Rey MD at [facility] Left: Knee [employer] 03/13/2033 [id number] / / [id number] Procedures Procedure Name Priority Date/Time Associated Diagnosis Comments NE ARTHROCENTESIS ASPIR&/INJ MAJOR JT/BURSA W/O US Routine 07/23/2025 10:20 AM CDT Bilateral shoulder pain, unspecified chronicity SLIDE REVIEW - PATHOLOGIST Routine 07/21/2025 9:44 AM CDT Myeloproliferative disease (HCC) EGFR Routine 07/21/2025 9:44 AM CDT Myeloproliferative disease (HCC) DIFFERENTIAL AUTO Routine 07/21/2025 9:4 4 AM CDT Myeloproliferative disease (HCC) CBC WITH AUTO DIFFERENTIAL Routine 07/21/2025 9:44 AM CDT Myeloproliferative disease (HCC) COMPREHENSIVE METABOLIC PANEL Routine 07/21/2025 9:44 AM CDT Myeloproliferative disease (HCC) LACTATE DEHYDROGENASE Routine 07/21/2025 9:44 AM CDT Myeloproliferative disease (HCC) HAPTOGLOBIN Routine 07/21/2025 9:44 AM CDT Myeloproliferative disease (HCC) RETICULOCYTES Routine 07/21/2025 9:44 AM CDT Myeloproliferative disease (HCC) from Last 3 Months Results * NE ARTHROCENTESIS ASPIR&/INJ MAJOR JT/BURSA W/O US (07/23/2025 10:20 AM CDT) Narrative Jack Ambrosio MD - 07/23/2025 10:20 AM CDT Jack Ambrosio MD 07/24/2025 10:57 AM Large Joint Injection: bilateral subacromial bursa Performed by: Jack Ambrosio MD Authorized by: Jack Ambrosio MD Large Joint Injection/Aspiration: Verbal consent obtained: Yes Written consent obtained: No Procedure Details: Location: Shoulder Site: Bilateral subacromial bursa Needle Size: 25 G Ultrasound guided: No Fluroscopic guidance: No Medications Right Large Joint Injection: 4 mL lidocaine 10 mg/mL (1 %); 40 mg triamcinolone 40 mg/mL Medications Left Large Joint Injection: 4 mL lidocaine 10 mg/mL (1 %); 40 mg triamcinolone 40 mg/mL us Jack Ambrosio MD IN CLINIC/BEDSIDE ORDERABLE S Final Result * Slide review - pathologist (07/21/2025 9:44 AM CDT) Slide review by See Comment Comment: No atypical cells seen. RBC morphology consistent with reported indices. Reviewed by Christa Cardoso MLS(ASCP) Testing performed by: [facility], [address] [place] [address]., [address] Blood 07/21/2025 9:44 AM CDT 07/21/2025 12:02 PM CDT Kenyetta Norman STUDENT LOAN COUNSELOR LAB BLOOD ORDERABLES Fin al Result Performing Organization Address City/[facility] Co de Phone Number DEYANIRA [address] [place] [address] * eGFR (07/21/2025 9:44 AM CDT) eGFR 60 >=60 mL/min/1. 73 m2 Comment: Interpretive Data Reference Interval Normal >/= 90 mL/min/1.73m2 Mildly decreased* 60 - 89 mL/min/1.73m2 Mildly to moderately decreased 45 - 59 mL/min/1.73m2 Moderately to severely decreased 30 - 44 mL/min/1.73m2 Severely decreased 15 - 29 mL/min/1.73m2 Kidney Failure < 15 mL/min/1.73m2 *Relative to young adult level Estimated glomerular filtration rate is determined by the 2020 CKD-EPI equation recommended by the National Kidney Foundation (A Unifying Approach to GFR Estimation: Recommendations of the NKF-ASK Task Force on Reassessing the Inclusion of Race in Diagnosing Kidney Disease, JASN 2020). The CKD-EPI equation should not be used for patients with unstable renal function and has not been validated in children and those over 70. Current interpretive data was last reviewed 2021. Testing performed by: [address] [address] Blood 07/21/2025 9:44 AM CDT 07/21/2025 9:47 AM CDT Ksenia Leung STUDENT LOAN COUNSELOR LAB BLOOD ORDERABLES Final Result Performing Organization Address City/[facility]/ZIP Co de Phone Number DEYANIRA [address] [place] [address] * Differential, auto (07/21/2025 9:44 AM CDT) Neutrophil abs 4.58 1.50 - 6.50 K/cumm Comment:Testing performed by : [address] [address] Imm gran abs 0.09 0.00 - 0.10 K/cumm [facility] Comment:Testing performed by : [address], [place]., [address] Lymphocyte abs 1.61 0.80 - 3.30 K/cumm DEYANIRA Comment:Testing performed by : [address], [place]., [address] Monocyte abs 0.52 0.20 - 0.80 K/cumm DEYANIRA Comment:Testing performed by : [address], [place]., [address] Eosinophil abs 0.21 0.00 - 0.50 K/cumm [facility] Comment:Testing performed by : [address], [place]., [address] Basophil abs 0.08 0.00 - 0.10 K/cumm [facility] Comment:Testing performed by : [address] [address] Neutrophil pct 64.6 % [facility] Comment: Interpretive Data Percent cell count reference ranges are not reported, since discordance with absolute values may lead to misinterpretation of CBC data. Current Interpretive Data was last revised on 2018. Testing performed by: [address] [address] Imm gran pct 1.3 % [facility] Comment: Interpretive Data Percent cell count reference ranges are not reported, since discordance with absolute values may lead to misinterpretation of CBC data. Current Interpretive Data was last revised on 2018. Testing performed by: [address] [address] Lymphocyte pct 22.7 % [facility] Comment: Interpretive Data Percent cell count reference ranges are not reported, since discordance with absolute values may lead to misinterpretation of CBC data. Current Interpretive Data was last revised on 2018. Testing performed by: [address] [address] Monocyte pct 7.3 % [facility] Comment: Interpretive Data Percent cell count reference ranges are not reported, since discordance with absolute values may lead to misinterpretation of CBC data. Current Interpretive Data was last revised on 2018. Testing performed by: [address] [address] Eosinophil pct 3.0 % DEYANIRA HUMPHREY Comment: Interpretive Data Percent cell count reference ranges are not reported, since discordance with absolute values may lead to misinterpretation of CBC data. Current Interpretive Data was last revised on 2018. Testing performed by: [address] [address] Basophil pct 1.1 % DEYANIRA HUMPHREY Comment: Interpretive Data Percent cell count reference ranges are not reported, since discordance with absolute values may lead to misinterpretation of CBC data. Current Interpretive Data was last revised on 2018. Testing performed by: [address] [address] Blood 07/21/2025 9:44 AM CDT 07/21/2025 9:47 AM CDT Ksenia Leung NP LAB BLOOD ORDERABLES Final Result Performing Organization Address City/State/[facility] Co de Phone Number DEYANIRA [facility] Department [place] [address] * (ABNORMAL) CBC with auto differential (07/21/2025 9:44 AM CDT) WBC 7.09 3.80 - 9.90 K/cumm Comment:Testing performed by : [address] [address] Hgb 10.5(L) 11.9 - 15.5 g/dL DEYANIRA HUMPHREY Comment:Testing performed by : [address] [address] Hct 31.0(L) 35.6 - 45.5 % DEYANIRA HUMPHREY Comment:Testing performed by : [address] [address] Plt 470(H) 150 - 400 K/cumm DEYANIRA HUMPHREY Comment:Testing performed by : [address] [address] MPV 10.2 9.1 - 12.3 fL DEYANIRA HUMPHREY Comment:Testing performed by : [address] [address] RBC 2.68(L) 3.90 - 5.20 M/cumm DEYANIRA HUMPHREY Comment:Testing performed by : [address] [address] MCV 115.7(H) 81.3 - 96.4 fL DEYANIRA Comment:Testing performed by : [address] [address] MCH 39.2(H) 27.1 - 33.3 pg DEYANIRA HUMPHREY Comment:Testing performed by : [address] [address] MCHC 33.9 32.3 - 35.7 g/dL DEYANIRA HUMPHREY Comment:Testing performed by : [address], [address] RDW CV 18.6(H) 11.1 - 14.9 % DEYANIRA HUMPHREY Comment:Testing performed by : [address] [address] RDW SD 75.4(H) 35.7 - 48.1 fL DEYANIRA Comment:Testing performed by : [address] [address] NRBC abs 0.04(H) 0.00 - 0.01 K/cumm DEYANIRA Comment:Testing performed by : [address] [address] ANC Prelim 4.58 1.50 - 6.50 K/cumm DEYANIRA Comment: Interpretive Data The rapid ANC is a preliminary automated count and may vary from the final ANC (Neut Abs) reported in the WBC differential that follows. Current interpretive data was last revised 2024. Testing performed by: [address] [address] Blood 07/21/2025 9:44 AM CDT 07/21/2025 9:47 AM CDT us Ksenia Leung NP LAB BLOOD ORDERABLES Final Result DEYANIRA HUMPHREY [address] [facility] Department [place] [address] * (ABNORMAL) Reticulocyte Count (07/21/2025 9:44 AM CDT) Pathologist [facility], absolute 51 20 - 87 K/cumm Comment:Testing performed by : [address] [address] Retics 1.9 0.4 - 2.9 % DEYANIRA Comment:Testing performed by : [address] [address] Reticulocyte Hgb 38.6(H) 30.5 - 38.0 pg DEYANIRA Comment:Testing performed by : [address] [address] Blood 07/21/2025 9:44 AM CDT 07/21/2025 9:47 AM CDT Ksenia Leung NP LAB BLOOD ORDERABLES Final Result Performing Organization Address City/[facility]/ZIP Co de Phone Number [address] [place] [address] * (ABNORMAL) Lactate dehydrogenase (LD) (07/21/2025 9:44 AM CDT) [facility] Lactate dehydrogenase (LDH) 290(H) 100 - 250 Units/L Comment:Testing performed by : [address] [address] Blood 07/21/2025 9:44 AM CDT 07/21/2025 9:47 AM CDT Ksenia Leung STUDENT LOAN COUNSELOR LAB BLOOD ORDERABLES Final Result Performing Organization Address City/[facility]/ZIP Co de Phone Number [address] [place] [address] * Haptoglobin (07/21/2025 9:44 AM CDT) [facility] Haptoglobin 45 30 - 200 mg/dL Comment:Specimen is Lipemic; results may be inaccurate due to high levels of lipids. Blood 07/21/2025 9:44 AM CDT 07/21/2025 12:24 PM CDT us Ksenia Leung NP LAB BLOOD ORDERABLES Final Result DEYANIRA [address] [facility] Department [place] [address] * (ABNORMAL) Comprehensive metabolic panel (07/21/2025 9:44 AM CDT) Sodium 141 135 - 145 mmol/L Comment:Testing performed by : [facility], [address] [place] [address]., [address] Potassium, pl 3.7 3.3 - 4.9 mmol/L DEYANIRA Comment:Testing performed by : [address] [address] Chloride 106 97 - 110 mmol/L DEYANIRA Comment:Testing performed by : [address] [address] CO2 26 22 - 32 mmol/L DEYANIRA Comment:Testing performed by : [address] [address] Anion gap 9 2 - 15 mmol/L DEYANIRA Comment:Testing performed by : [address] [address] BUN 12 6 - 25 mg/dL DEYANIRA Comment:Testing performed by : [address] [address] Creatinine 1.00 0.60 - 1.10 mg/dL DEYANIRA Comment:Testing performed by : [address] [address] Glucose 86 70 - 199 mg/dL DEYANIRA Comment: Interpretive Data Fasting glucose >/= 126 mg/dl is diagnostic for diabetes. Fasting is defined as no caloric intake for at least 8 hours. Fasting glucose between 100 mg/dl to 125 mg/dl is diagnostic of prediabetes. In a patient with classic symptoms of hyperglycemia or hyperglycemic crisis, a random glucose >/= 200 mg/dl is diagnostic for diabetes. In the absence of unequivocal hyperglycemia, results should be confirmed by repeat testing. The classification and Diagnosis of Diabetes Diabetes Care 202; 46: S19-S40. Current interpretive data was last revised 2022. Testing performed by: [address] [address] Calcium 8.7 8.5 - 10.3 mg/dL DEYANIRA Comment:Testing performed by : [address] [address] Bilirubin, total 0.4 0.1 - 1.2 mg/dL DEYANIRA Comment:Testing performed by : [address] [address] Protein, pl 6.3(L) 6.5 - 8.5 g/dL DEYANIRA Comment:Testing performed by : [address] [address] Albumin 3.9 3.5 - 5.0 g/dL DEYANIRA Comment:Testing performed by : [address] [address] Alk phos 71 40 - 130 Units/L DEYANIRA Comment:Testing performed by : [address] [address] ALT 24 7 - 45 Units/L DEYANIRA Comment:Testing performed by : [address] [address] AST 29 10 - 45 Units/L DEYANIRA Comment:Testing performed by : [address] [address] Blood 07/21/2025 9:44 AM CDT 07/21/2025 9:47 AM CDT us Ksenia Leung NP LAB BLOOD ORDERABLES Final Result [facility] [address] [facility] Department [place] [address] from Last 3 Months Insurance [facility] MEDICARE ADVANTAGE [employer] MEDICARE ADVANTAGE UHC MEDICARE ADVANTAGE Advance Directives For more information, please contact: [phone] * Full Code (Latest Code Status on File) Date Activated Date Inactivated Comments 01/14/2024 5:17 PM 01/16/2024 5:41 PM Care Teams Supervisor Livestock Yard Relationship Specialty Start Date End Date Ronny Mcnamara MD PCP - General Family Practice 02/07/21 Ronal Jay NP [address] [place] [address] DR GATES [address] [place] [address] Nurse Practitioner Orthopedic Surgery 01/16/24
--- OUTSIDE RECORDS SUMMARY | 2025-08-10 00:46 | XMS_ITS | Encounter Summary ---
Author Organization [facility] Healthcare Address [address] [place] [address] Care Team Providers Care Electric Furnace Operator Name Role Phone Charan Khan MD, Layo Unavailable [phone] Ronny Mcnamara MD Primary Care Provider Renea Kemp ALTERATIONS SEWER Unavailable [phone] Ronal Jay ALTERATIONS SEWER Unavailable [phone] Encounter Details Date Type Department Care Team (Late st Contact Info) Description 05/05/2021 Telephone [facility] [address] [place] [address] Vielka Issa, RT Social History Tobacco Use Types Packs/Day Years Used Date Smoking Tobacco: Former Cigarettes Q uit: 2018 Smokeless Tobacco: Never Alcohol Use Standard Drinks/Week Comments Yes 0 (1 standard drink = 0.6 oz pur e alcohol) Comments Unknown Sex and Gender Information Value Date Recorded Sex Assigned at Not on file Legal Sex Female 11:36 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 Gender Identity Not on file Sexual Orientation Not on file documented as of this encounter Plan of Treatment Not on file documented as of this encounter Visit Diagnoses Not on filedocumented in this encounter Care Teams Electric Furnace Operator Relationship Specialty Start Date End Date Ronny Mcnamara MD PCP - General Family Practice 02/07/21 Layo Farrar Jr., MD Medical Oncologist/Loom Overhauler Medical Oncology 04/11/20 11/12/22 Renea Kemp NP [address] [place] [address] Nurse Practitioner Medical Oncology 11/13/22 07/16/24 Ronal Jay NP [address] [address] Nurse Practitioner Orthopedic Surgery 01/16/24 documented as of this encounter
--- OUTSIDE RECORDS SUMMARY | 2025-08-10 00:46 | XMS_ITS | Encounter Summary ---
Author Organization [facility] Healthcare Address [address] [place] [address] Care Team Providers Care Adoption Manager Name Role Phone Charan Khan MD, Layo Unavailable [phone] Ronny Mcnamara MD Primary Care Provider Renea Kemp DRYING ROOM SUPERVISOR Unavailable [phone] Ronal Jay DRYING ROOM SUPERVISOR Unavailable [phone] Encounter Details Date Type Department Care Team (Late st Contact Info) Description 08/11/2021 Telephone [facility] [address] [place] [address] Therese Simmons, RT Social History Tobacco Use Types Packs/Day Years Used Date Smoking Tobacco: Former Cigarettes Q uit: 2018 Smokeless Tobacco: Never Alcohol Use Standard Drinks/Week Comments Yes 0 (1 standard drink = 0.6 oz pur e alcohol) Comments Unknown Sex and Gender Information Value Date Recorded Sex Assigned at Not on file Legal Sex Female 11:36 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 Gender Identity Not on file Sexual Orientation Not on file documented as of this encounter Plan of Treatment Not on file documented as of this encounter Visit Diagnoses Not on filedocumented in this encounter Care Teams Adoption Manager Relationship Specialty Start Date End Date Ronny Mcnamara MD PCP - General Family Practice 02/07/21 Layo Farrar Jr., MD Medical Oncologist/Sole Filler Medical Oncology 04/11/20 11/12/22 Renea Kemp NP [address] [place] [address] Nurse Practitioner Medical Oncology 11/13/22 07/16/24 Ronal Jay NP [address] [address] Nurse Practitioner Orthopedic Surgery 01/16/24 documented as of this encounter
--- OUTSIDE RECORDS SUMMARY | 2025-08-10 00:46 | XMS_ITS | Clinical Summary ---
Author Organization [facility] Address [address] [place] [address] Phone Care Team Providers Care Oil Recovery Operator Name Role Phone Sita Ladd MD Primary [...] - 1-dose 75+ series) 2028 Care Teams Oil Recovery Operator Relationship Specialty Start Date End Date Sita Ladd MD PCP - General Family Practice 03/09/20
--- OUTSIDE RECORDS SUMMARY | 2025-08-10 00:46 | XMS_ITS | Encounter Summary ---
Author Organization [facility] Address [facility] [place] [address] Care Team Providers Care Fur Ironer Name Role Phone None, Provider Primary Care Provider Bladimir Bustamante MD Unavailable [phone] Encounter Details Date Type Department Care Team (Late st Contact Info) Description 05/02/2020 Prep for Procedure [facility] [place] [address] Bladimir Gonzalez MD [address] [id number] Social History Tobacco Use Types Packs/Day Years [...] DETECTED NOT DETECTED 05/02/2020 1:46 PM CDT [facility] CORONAVIRUS 229E PCR (RESP) NOT DETECTED NOT DETECTED 05/02/2020 1:46 PM CDT [facility] CORONAVIRUS HKU1 PCR (RESP) NOT DETECTED NOT DETECTED 05/02/2020 1:46 PM CDT [facility] CORONAVIRUS NL63 PCR (RESP) NOT DETECTED NOT DETECTED 05/02/2020 1:46 PM CDT [facility] CORONAVIRUS OC43 PCR (RESP) NOT DETECTED NOT DETECTED 05/02/2020 1:46 PM CDT [facility] METAPNEUMOVIRUS PCR (RESP) NOT DETECTED NOT DETECTED 05/02/2020 1:46 PM CDT [facility] RHINOVIRUS/ENTEROV IRUS PCR (RESP) NOT DETECTED NOT DETECTED 05/02/2020 1:46 PM CDT [facility] INFLUENZA A PCR (RESP) NOT DETECTED NOT DETECTED 05/02/2020 1:46 PM CDT [facility] INFLUENZA B PCR (RESP) NOT DETECTED NOT DETECTED 05/02/2020 1:46 PM CDT [facility] PARAINFLUENZA 1 PCR (RESP) NOT DETECTED NOT DETECTED 05/02/2020 1:46 PM CDT [facility] PARAINFLUENZA 2 PCR (RESP) NOT DETECTED NOT DETECTED 05/02/2020 1:46 PM CDT [facility] PARAINFLUENZA 3 PCR (RESP) NOT DETECTED NOT DETECTED 05/02/2020 1:46 PM CDT [facility] PARAINFLUENZA 4 PCR (RESP) NOT DETECTED NOT DETECTED 05/02/2020 1:46 PM CDT [facility] RSV PCR (RESP) NOT DETECTED NOT DETECTED 05/02/2020 1:46 PM CDT [facility] B PARAPERTUSIS PCR (RESP) NOT DETECTED NOT DETECTED 05/02/2020 1:46 PM CDT [facility] BORDETELLA PERTUSSIS PCR (RESP) NOT DETECTED NOT DETECTED 05/02/2020 1:46 PM CDT [facility] CHLAMYDOPHILA PNEUMONIAE PCR (RESP) NOT DETECTED NOT DETECTED 05/02/2020 1:46 PM CDT [facility] MYCOPLASMA PNEUMONIAE PCR (RESP) NOT DETECTED NOT DETECTED 05/02/2020 1:46 PM CDT [facility] CORONAVIRUS SARS COV 2 PCR (RESP) NOT DETECTED NOT DETECTED 05/02/2020 1:46 PM CDT [facility] Comment: THE SARS-CoV-2 TEST HAS BEEN AUTHORIZED BY THE FDA UNDER AN EUA FOR USE BY AUTHORIZED LABORATORIES. NASOPHARYNGEAL STRUCTURE / Unknown 05/02/2020 10:12 AM CDT Bladimir Gonzalez MD MICROBIOLOGY - GENERAL BELJulisa ITALO Final Result [facility] [address] [place] [address], documented in this encounter Visit Diagnoses Diagnosis Gastric ulcer- Primary Gastric ulcer, unspecified as acute or chronic, without mention of hemorrhage, perforation, or obstruction documented in this encounter Additional Health Concerns Infection Onset Date Last Indicated Resolved Time COVID-19 Rule Out 05/02/2020 05/02/2020 05/02/2020 1:46 PM CDT documented as of this encounter Care Teams Fur Ironer Relationship Specialty Start Date End Date None, Provider, PCP - General 05/03/20 Bladimir Gonzalez MD [address] [facility] [address] [place] [address] GASTROENTEROLOGY 04/07/20 documented as of this encounter
--- OUTSIDE RECORDS SUMMARY | 2025-08-10 00:46 | XMS_ITS | Clinical Summary ---
Author Organization [facility] Address [address] [place] [address] Care Team Providers Care Doctor Of Medicine Name Role Phone None, Provider MD Primary Care Provider Bladimir Bustamante MD Unavailable [phone] Allergies Active Allergy Reactions Criticality Noted Date [...] C 1971 DTaP, Tdap and Td Vaccines (1 - Tdap) 1972 Mammogram Screening 1993 RSV Immunization or 60+ Years (1 - Risk 60-74 years 1-dose series) 2013 Pneumococcal Vaccine: 50+ Years (2 of 2 - PCV) 11/27/2015 11/27/2014, 01/22/2014 Annual Medicare Wellness Visit 2018 Dexa Scan (General) 2018 COVID-19 Vaccine (3 - Pfizer risk series) 01/31/2021 01/03/2021, 12/13/2020 Influenza Adult (#1) 2025 06/07/2021, 07/13/2020, 08/07/2019, Additional history exists Colorectal Cancer Screening Colonoscopy (10 Years) 02/22/2030 02/23/2020, 02/23/2020 Zoster Vaccines Completed 04/18/2019, 01/12, 11/27/2014 Hepatitis A Vaccines Aged Out No long er eligible based on patient's age to complete this topic Meningococcal B Vaccine Aged Out No l onger eligible based on patient's age to complete this topic Meningococcal Vaccine Aged Out No ivonne jonny eligible based on patient's age to complete this topic RSV Immunizations Under 20 Months Aged Out No longer eligible based on patient's age to complete this topic Medical Devices Implanted Type Area Candle Pourer Device Identifier Shelf Expiration Date Model / Serial / Lot Knee Thigh Procedures Procedure Name Priority Date/Time Associated Diagnosis Comments COLONOSCOPY Routine 02/23/2020 1:06 PM CDT from Last 3 Months or Most Recently Relevant to Health Maintenance Results * Colonoscopy (02/23/2020 1:06 PM CDT) Bladimir Santiago MD - 02/23/2020 1:06 PM CDT Bladimir Rodrigez MD 02/23/2020 1:51 PM BLADIMIR RODRIGEZ MD, FACG, FACP COLONOSCOPY and EGD EGD INDICATION: Epigastric pain, nausea, acute blood loss anemia, hematemesis, hematochezia, heme positive stool and abnormal imaging of the stomach. POST-OP: Chronic, non-erosive gastritis and large antral ulcer. Biopsies done. SEDATION: Per Anesthesia With the patient in the left lateral decubitus position, the Olympus [id number] endoscope was used to easily intubate the [...] the left lateral decubitus position, the Olympus [id number] colonoscope was introduced into the rectum and [...] otherwise screening colonoscopy in 10 years Bladimir Rodrigez M.D. [phone] Bladimir Rodrigez MD GI PROCEDURE ORDERABLES Fin al Result from Last 3 Months or Most Recently Relevant to Health Maintenance Insurance [facility] MEDIC[facility] Advance Directives * Full Code (Latest Code Status on File) Date Activated Date Inactivated Comments 02/21/2020 5:15 PM 02/26/2020 3:48 PM Care Teams Doctor Of Medicine Relationship Specialty Start Date End Date None, Provider, PCP - General 05/03/20 Bladimir Rodrigez MD [address] [facility] [address] [place] [address] GASTROENTEROLOGY 04/07/20
[2025-08-10 08:28] VITALS: BMI 23.8
[2025-08-10] MEDS: LACTATED RINGERS 1,000 ML 150 ML IV CONT (08:50)
--- NOTE | 2025-08-10 08:53 | P.PNAN_ITS ---
Anes - Initial Pre Proc Eval Procedure: Operation Date: 08/10/25 09:15 Proposed Procedures p Esophagogastroduodenoscopy EGD - Shiraz Farrar MD Date/Time: 08/10/25 08:53 Surgeon: Shiraz Farrar MD Pre Op Diagnosis: Gastroduodenitis, unspecified, without bleeding Patient Data Age: 70 Gender: F Height: 1.68 m Weight: 67.1 kg Allergies Allergy/AdvReac Type Severity Reaction Status Date / Time amitriptyline Allergy Mild Hallucinati Verified 08/10/25 08:26 ons Penicillins Allergy Unknown Hives / Verified 08/10/25 08:26 Red Face,Itching aspirin AdvReac GI bleed Verified 08/10/25 08:26 Home Medications ?Medication ?Instructions ?Recorded ?Confirmed ?Type cholecalciferol (vitamin D3) 50 50 mcg PO DAILY 08/10/25 History mcg (2,000 unit) capsule omega 4-dbc-ilf-fish oil 1,000 mg 1 cap PO DAILY 01/1408/10/25 History (120 mg-180 mg) capsule (Fish Oil) hydroxyurea 500 mg capsule 500 mg PO BID 02/07/2207/15 History gabapentin 300 mg capsule 300 mg PO DAILY 12/23/23 History metoprolol succinate 25 mg See Rx Instructions .Route 09/14/24 08/10/25 Rx tablet,extended release 24 hr .COMPLEX #30 tabs triamcinolone acetonide 0.5 % See Rx Instructions .Rou te 12/28/24 07/30/25 Rx topical ointment .COMPLEX #15 grams albuterol sulfate 90 mcg/actuation 1 inh inhalation Q4 H PRN shortness 03/12/25 08/10/25 Rx aerosol inhaler of breath or wheezing #6.7 g neal prednisone 20 mg tablet 20 mg PO BID #10 tabs 08/10/25 Rx pantoprazole 40 mg tablet,delayed 40 mg PO QAM #30 tab s 07/05/25 08/10/25 Rx release simvastatin 10 mg tablet 10 mg PO DAILY #90 tabs 06/1508/10/25 Rx Patient hx anesthesia problems: none Family hx anesthesia problems: none Results Review: All pre-operative results and documents have been reviewed as part of the pre- operative evaluation. [facility] Past Medical History Medical History DDD (degenerative disc disease) Epistaxis Anxiety Sleepwalking Family history of colon cancer in father Hypertension PAT (paroxysmal atrial tachycardia) Vegetarian diet Carotid bruit Gastric ulcer Thrombocytosis (~02/2020) GI bleed (~02/2020) Cyst of right ovary (~02/2020) Anxiety disorder, unspecified Chronic obstructive pulmonary disease Neuropathy CHATA (obstructive sleep apnea) Primary osteoarthritis of right knee Recurrent major depression in remission Tobacco abuse Surgical History Surgical History History of left knee replacement H/O tubal ligation History of total right knee replacement History of right knee surgery retrograde femoral nail for supracondylar femur fracture Family History Family History Father Carcinoma of colon Diabetes mellitus Hypertension Malignant neoplasm of prostate Family history of alcohol abuse Depression Heart disease Mother Hypertension Family history of chronic obstructive pulmonary disease Family history of congestive heart failure Carcinoma of colon Depression Other Family history of arthritis Family history of malignant neoplasm Social History Social History Years smoked: 30 Smoking status: Former smoker Tobacco type: cigarettes Smoking end date: 10/14/16 Alcohol intake: current Drinks per week: 3 Alcohol use details: 1 beer occasionally Substance use: never Substance use type: does not use Lack of Transportation: No Lack of Food: Sometimes True Current Housing: I Have Housing Concerned About Future Housing: No Difficulty Paying for Meds: No Currently Unemployed: No Education: High School Diploma/GED Difficulty w/ Childcare or Family Care: No Living arrangements: alone Occupation/Education: other Gender identity (if verbalized by the patient): Female Spiritual care concerns: No Anes - Eval Final PreProcedure Day of Procedure 08/10/25 08:53 Patient weight: normal Lungs: normal air movement Airway: Mallampati scale class II and special considerations (Edentulous upper. ) Neurological: alert and oriented Last oral intake: >/= 8 hours ASA classification: III Emergent: no Anesthetic plan: proceed Anesthesia type and monitoring: general GIVS and standard monitoring Results Review: All pre-operative results and documents have been reviewed as part of the pre- operative evaluation. HTN, hyperlipidemia, ex smoker quit 2021, ETOH use 3 beers/day, now abd pain. Informed Consent: The patient's anesthetic plan and its attendant risks and benefits were discussed with the patient/family/POA. Questions were solicited and answers provided to the satisfaction of the patient/family/POA.
--- NOTE | 2025-08-10 09:03 | PM.HPGS ---
History of Present Illness History of Present Illness Consent: Risks, benefits, and alternatives have been discussed and questions answered. Patient agrees to proceed with procedure. Chief complaint: Gastroduodenitis, unspecified, without bleeding Narrative: Leilani Low is a 70 year old female with abdominal pain, ct scan showed possible gastritis and duodenitis Review of Systems Review of Systems: All systems reviewed & are unremarkable except as noted in HPI and below PMFSH Past Medical History Medical History DDD (degenerative disc disease) Epistaxis Anxiety Sleepwalking Family history of colon cancer in father Hypertension PAT (paroxysmal atrial tachycardia) Vegetarian diet Carotid bruit Gastric ulcer Thrombocytosis (~02/2020) GI bleed (~02/2020) Cyst of right ovary (~02/2020) Anxiety disorder, unspecified Chronic obstructive pulmonary disease Neuropathy CHATA (obstructive sleep apnea) Primary osteoarthritis of right knee Recurrent major depression in remission Tobacco abuse Surgical History Surgical History History of left knee replacement H/O tubal ligation History of total right knee replacement History of right knee surgery retrograde femoral nail for supracondylar femur fracture Family History Family History Father Carcinoma of colon Diabetes mellitus Hypertension Malignant neoplasm of prostate Family history of alcohol abuse Depression Heart disease Mother Hypertension Family history of chronic obstructive pulmonary disease Family history of congestive heart failure Carcinoma of colon Depression Other Family history of arthritis Family history of malignant neoplasm Social History Social History Years smoked: 30 Smoking status: Former smoker Tobacco type: cigarettes Smoking end date: 10/14/16 Alcohol intake: current Drinks per week: 3 Alcohol use details: 1 beer occasionally Substance use: never Substance use type: does not use Lack of Transportation: No Lack of Food: Sometimes True Current Housing: I Have Housing Concerned About Future Housing: No Difficulty Paying for Meds: No Currently Unemployed: No Education: High School Diploma/GED Difficulty w/ Childcare or Family Care: No Living arrangements: alone Occupation/Education: other Gender identity (if verbalized by the patient): Female Spiritual care concerns: No Meds Home Medications and Allergies Home Medications ?Medication ?Instructions ?Recorded ?Confirmed ?Type cholecalciferol (vitamin D3) 50 50 mcg PO DAILY 01/15/20 08/10/25 History mcg (2,000 unit) capsule omega 4-nwg-lyz-fish oil 1,000 mg 1 cap PO DAILY 01/15/20 08/10/25 History (120 mg-180 mg) capsule (Fish Oil) hydroxyurea 500 mg capsule 500 mg PO BID 02/07/22 08/10/25 History gabapentin 300 mg capsule 300 mg PO DAILY 12/23/23 08/10/25 History metoprolol succinate 25 mg See Rx Instructions .Route 09/14/24 08/10/25 Rx tablet,extended release 24 hr .COMPLEX #30 tabs triamcinolone acetonide 0.5 % See Rx Instructions .Route 12/28/24 07/30/25 Rx topical ointment .COMPLEX #15 grams albuterol sulfate 90 mcg/actuation 1 inh inhalation Q4H PRN shortness 03/12/25 08/10/25 Rx aerosol inhaler of breath or wheezing #6.7 grams prednisone 20 mg tablet 20 mg PO BID #10 tabs 07/02/25 08/10/25 Rx pantoprazole 40 mg tablet,delayed 40 mg PO QAM #30 tabs 07/05/25 08/10/25 Rx release simvastatin 10 mg tablet 10 mg PO DAILY #90 tabs 07/12/25 08/10/25 Rx Allergies Allergy/AdvReac Type Severity Reaction Status Date / Time amitriptyline Allergy Mild Hallucinati Verified 08/10/25 08:26 ons Penicillins Allergy Unknown Hives / Verified 08/10/25 08:26 Red Face,Itching aspirin AdvReac GI bleed Verified 08/10/25 08:26 Exam Const: General: comfortable and no acute distress HENMT: Face/Nose/Sinus: Normal nares present Eyes: General: appearance normal, both eyes and all related structures Neck: Neck: no JVD Resp: Auscultation: clear to auscultation bilaterally Cardio: Rate: regular rate Rhythm: regular rhythm GI: Inspection: non-distended GI Palp: Yes Soft to palpation Skin: General skin exam: normal color Extrem: General: normal to inspection Psych: Mental Status: mental status grossly normal Assessment and Plan Assessment and plan (1) Upper abdominal pain: Code(s): R10.10 - Upper abdominal pain, unspecified Status: Acute Assessment and Plan: egd with bx
--- NOTE | 2025-08-10 09:10 | S_PTH ---
PATIENT: Leilani Low V LOC: [facility]#:[id number] AGE/SX: 70/F ROOM: RE08/10/[address]: Shiraz Farrar MD : 1955 BED: DIS: 08/10/2025 SPEC #: [id number] RECD: 08/10/25 10:09 STATUS: JAILENE CASTILLO #: [id number] LULI: 08/10/25 09:[address]: Shiraz Farrar DEPT: [facility] Surgical RECD BY: Landy Gasca ENTERED: 08/10/25 10:10 SP TYPE: Surgical OTHR DR: Ronny Mcnamara MD Tissues: A - Gastric Biopsy B - Small Bowel Bx Procedures: Hematoxylin and Eosin Stain Gross and Microscopic Level 4
[2025-08-10 09:13] VITALS: BP 146/87; PULSE 81; RESP 20; O2SAT 100
[2025-08-10 09:23] VITALS: BP 146/92; PULSE 75; RESP 24; O2SAT 100
[2025-08-10] MEDS: ONDANSETRON INJ 4 MG/2 ML VIAL IV PUSH (09:23)
[2025-08-10] MEDS: FAMOTIDINE 20 MG/2 ML VIAL IV PUSH (09:23)
[2025-08-10 09:33] VITALS: BP 145/90; PULSE 72; RESP 20; O2SAT 98
== END 2025-08-10 09:38 | disposition home or self-care (01) ==
PROVIDERS: PCP Family Medicine; Referring Provider Nurse Practitioner Family; Visit Provider Internal Medicine Gastroenterology
PROC: 0DJ08ZZ Inspection of Upper Intestinal Tract, Via Natural or Artificial Opening Endoscopic (ICD-10-PCS; CPT 43239; principal; 2025-08-10 09:15)
DX: K29.70 Gastritis, unspecified, without bleeding (principal)
CPT/HCPCS: 43239; 88305; J2003; J2405; J2704; J7120

== ENCOUNTER 2025-08-27 09:06 | Outpatient (CLI) | payer MEDICARE, SELFPAY ==
--- NOTE | ~2025-08-27 | DEXA_ITS ---
Bone Density Report Name: HODAN FRY V Age: 70 Sex: Female Ethnicity: White Date of : 1955 Indication: osteopenia; height loss; cancer; Referring Provider: Sara Waters Study: Bone densitometry was performed. Exam Date: August 27, 2025 Accession number: [id number] Bone Density: Region BMD T-score Z-score Classification AP Spine(L1-L4) 1.053 0.1 2.3 Normal Femoral Neck (Left) 0.654 -1.8 0.2 Osteopenia Total Hip (Left) 0.681 -2.1 -0.5 Osteopenia Femoral Neck (Right) 0.617 -2.1 -0.2 Osteopenia Total Hip (Right) 1.230 2.4 4.0 Normal Total Hip Mean 0.955 0.2 1.8 Normal World Health Organization criteria for BMD impression classify patients as: Normal (T-score at or above -1.0), Osteopenia (T-score between -1.0 and -2.5), or Osteoporosis (T-score at or below -2.5). 10-year Fracture Risk(1): Major Osteoporotic Fracture 16% Hip Fracture 4.3% Reported Risk Factors: [place] (), Neck BMD=0.617, BMI=25.1, alcohol use (1) FRAX(R) Version 3.08. Fracture probability calculated for an untreated patient. Fracture probability may be lower if the patient has received treatment. Previous Exams: -- Region Exam Age BMD T-score BMD Change BMD Change Date g/cm2 vs Baseline vs Previous -- AP Spine (L1-L4) 08/27/2025 70 1.053 0.1 -5.1%* -5.1%* 04/12/2023 67 1.110 0.6 Total Hip(Left) 08/27/2025 70 0.681 -2.1 -5.7%* -5.7%* 04/12/2023 67 0.722 -1.8 Total Hip(Right) 08/27/2025 70 1.230 2.4 1.8% 1.8% 04/12/2023 67 1.208 2.2 -- *Denotes significance at 95% confidence level, LSC for AP Spine = 0.022 g/cm2, LSC for Total Hip = 0.027 g/cm2 Clinical Information Provided by Patient: Has 3 or more alcoholic drinks per day Has used the following medications: Vitamin D Has the following medical conditions: Cancer, leukemia Patient maximum height was 66 Menopause Age: 38 Onset of menses at age 10 Number of children 2 Impression: The patient has low bone mass, based on the Left Total Hip T-score. The patient has an estimated ten-year risk of hip fracture of 4.3% and an estimated ten-year risk of major fracture of 16%, based on the WHO FRAX algorithm. The patient has risk factors, including: excessive alcohol use. The BMD for the AP Spine (L1-L4) decreased, changing by -5.1% since the last DXA exam. The BMD for the Total Hip(Left) decreased, changing by -5.7% since the last DXA exam. Discussion: BONE DENSITY IS LOW AT ONE OR MORE SKELETAL SITES. THE PATIENT'S BMD AND CLINICAL RISK FACTORS CONTRIBUTE TO THIS PATIENT'S INCREASED RISK OF FRACTURE. This patient's lowest T-score is low at one or more skeletal sites. It meets the World Health Organization's (WHO) criteria for ?low bone mass? (T-score between -1.0 and -2.5). The patient's 10-year risk of hip fracture as calculated by FRAX exceeds the threshold where pharmacological therapy is recommended by the National Osteoporosis Foundation (NOF). However, all treatment decisions require clinical judgment and consideration of individual patient factors, including patient preferences, comorbidities, previous drug use, risk factors not captured in the FRAX model (e.g., frailty, falls, vitamin D deficiency, increased bone turnover, interval significant decline in bone density) and possible under or overestimation of fracture risk by FRAX. The patient should follow a healthful lifestyle (good nutrition with adequate calcium and vitamin D, and appropriate weight-bearing exercise). Follow-Up: Consider a repeat BMD and Vertebral Fracture Assessment (VFA) exam in 2 years or sooner if medically necessary, to reassess this patient's status. Reported by: LUDY on 08/27/2025 10:10:00 AM. Reviewed, dictated and finalized at location A.
== END 2025-08-27 09:07 | disposition home or self-care (01) ==
LOC: MICIMG 09:07
PROVIDERS: PCP Family Medicine; Visit Provider Nurse Practitioner Family
DX: Z78.0 Asymptomatic menopausal state (principal); M85.852 Other specified disorders of bone density and structure, left thigh; M85.851 Other specified disorders of bone density and structure, right thigh
CPT/HCPCS: 77080